=== PATIENT | female | born 1960 | race Caucasian/White ===

== ENCOUNTER 2017-10-03 12:20 | Emergency (ER) | payer BC ==
[2017-10-03] MEDS ORDERED: SODIUM CHLORIDE 0.9% 1,000 ML IV STA (12:42)
--- NOTE | 2017-10-03 12:45 | ED ---
General Adult HPI - General Chief complaint: Extremity Problem,Nontraumatic Stated complaint: right hand/arm numbness Time Seen by Provider: 10/03/17 12:28 Source: patient, RN notes reviewed Mode of arrival: ambulatory Limitations: physical limitation - History of Present Illness Initial comments: Patient 57-year-old female significant past medical history for MS, presenting today with a chief complaint of some numbness to and sensation to the fourth and fifth digits of the right hand. She states that she does feel some numbness and tingling also up into the forearm just on the ulnar side. Patient denies anything that makes it better or worse. States it's been constant for the past 4 days. She states she is unsure if it's related but she was on IV steroids for one week 2 weeks ago and finished with a tapering dose of oral steroids this past week. She states the symptoms started the next day after finishing the steroids. Patient denies any other associated symptoms or complaints. She states she did call the neurologist and was advised come here to the emergency room. Patient denies any recent fever, chills, shortness of breath, chest pain, back pain, abdominal pain, nausea or vomiting, headaches or visual changes, or any other complaints. - Related Data Home Medications Medication Instructions Recorded Confirmed Albuterol Sulfate [Proair Hfa] 2 puff INHALATION RT-Q4H PRN 01/20/14 10/03/17 Lansoprazole [Prevacid] 30 mg PO BID@0600,1800 01/20/14 10/03/17 Spironolactone [Aldactone] 25 mg PO DAILY@59901/20/14 10/03/17 Apixaban [Eliquis] 5 mg PO BID@0600,1800 03/28/16 10/03/17 Atorvastatin [Lipitor] 40 mg PO DAILY@119903/28/16 10/03/17 Calcium Carbonate/Vitamin D3 1 tab PO DAILY@119903/28/16 10/03/17 [Calcium 600-Vit D3 200 Tablet] Ferrous Sulfate [Feosol] 325 mg PO DAILY@59903/28/16 10/03/17 Furosemide [Lasix] 40 mg PO DAILY@119903/28/16 10/03/17 Gabapentin [Gabapentin] 600 mg PO TID@0600,1200,1800 03/28/16 10/03/17 [place]-3 Fatty Acids/Fish Oil [Fish 1 cap PO DAILY@1200 03/28/16 10/03/17 Oil 1,000 mg Softgel] Potassium Chloride ER [K-Dur 20] 20 meq PO DAILY@1200 03/28/16 10/03/17 ALPRAZolam [Xanax] 0.25 mg PO DAILY PRN 10/03/17 10/03/17 Acetaminophen/Diphenhydramine 3 tab PO HS PRN 10/03/17 10/03/17 [Tylenol PM 500-25mg] Albuterol Sulfate [Proair Hfa] 2 puff INHALATION HS 10/03/17 10/03/17 Baclofen [Lioresal] 20 mg PO TID@0600,1200,1800 10/03/17 10/03/17 [place]/D3/Mag11/Zinc/[employer]/Bob/Bor 1 tab PO DAILY@1800 10/03/17 10/03/17 [Caltrate 600+D Plus Tablet] Citracal Plus Magnesium 1 tab PO DAILY@1200 10/03/17 10/03/17 Dofetilide [Tikosyn] 250 mcg PO BID@0600,1800 10/03/17 10/03/17 Ergocalciferol [Vitamin D2] 50,000 unit PO Q30D 10/03/17 10/03/17 Glatiramer Acetate [Copaxone] 40 mg SQ MOWEFR 10/03/17 10/03/17 Levothyroxine Sodium [Synthroid] 100 mcg PO DAILY@0600 10/03/17 10/03/17 Losartan Potassium [Cozaar] 25 mg PO DAILY@1200 10/03/17 10/03/17 Metoprolol Tartrate [Lopressor] 50 mg PO BID@0600,1800 10/03/17 10/03/17 Multivit-Min/FA/Lycopen/Lutein 1 tab PO DAILY@1800 10/03/17 10/03/17 [Centrum Silver Tablet] Pregabalin [Lyrica] 75 mg PO DAILY@0600 10/03/17 10/03/17 Pregabalin [Lyrica] 150 mg PO DAILY@1800 10/03/17 10/03/17 Venlafaxine HCl ER [Effexor Xr] 150 mg PO DAILY@1800 10/03/17 10/03/17 oxyCODONE HCL/ACETAMINOPHEN 1 tab PO TID@0600,1400,1800 10/03/17 10/03/17 [Endocet 7.5-325 mg] Allergies Allergy/AdvReac Type Severity Reaction Status Date / Time No Known Allergies Allergy Verified 10/03/17 12:52 Review of Systems ROS Statement: Those systems with pertinent positive or pertinent negative responses have been documented in the HPI. ROS Other: All systems not noted in ROS Statement are negative. Past Medical History Past Medical History: Chest Pain / Angina, GERD/Reflux, Hyperlipidemia, Hypertension, Myocardial Infarction ([place]), Mitral Valve Prolapse (MVP), Osteoarthritis (OA), Pneumonia Additional Past Medical History / Comment(s): enlarged heart, irrregular heart beat-afib, DDD,HERNIATED DISC, lesions on brain which maybe due to possible MS. Last Myocardial Infarction Date:: several years ago History of Any Multi-Drug Resistant Organisms: None Reported Past Surgical History: Appendectomy, Hysterectomy, Tonsillectomy Additional Past Surgical History / Comment(s): LASER SURG TO BACK Past Anesthesia/Blood Transfusion Reactions: No Reported Reaction Past Psychological History: Depression, PTSD Smoking Status: Former smoker Past Alcohol Use History: None Reported, Rare Past Drug Use History: None Reported - Past Family History Father Family Medical History: Cancer Additional Family Medical History / Comment(s): PROSTATE AND LUNG CANCER Mother Family Medical History: CVA/TIA, Hypertension General Exam - General Exam Comments Initial Comments: General: The patient is awake and alert, in no distress, and does not appear acutely ill. Eye: Pupils are equal, round and reactive to light, extra-ocular movements are intact. No nystagmus. There is normal conjunctiva bilaterally. No signs of icterus. Ears, nose, mouth and throat: There are moist mucous membranes and no oral lesions. Neck: The neck is supple, there is no tenderness or JVD. Cardiovascular: There is a regular rate and rhythm. No murmur, rub or gallop is appreciated. Respiratory: Lungs are clear to auscultation, respirations are non-labored, breath sounds are equal. No wheezes, stridor, rales, or rhonchi. Gastrointestinal: Soft, non-distended, non-tender abdomen without masses or organomegaly noted. There is no rebound or guarding present. No CVA tenderness. Bowel sounds are unremarkable. Musculoskeletal: Normal ROM, no tenderness. Strength 5/5. Sensation intact. Pulses equal bilaterally 2+. Neurological: A&O x 3. CN II-XII intact, There are no obvious motor or sensory deficits. Coordination appears grossly intact. Speech is normal. Sensation is intact to light touch to the fourth and fifth digits and the ulnar aspect of the right hand. Strength 5/5. Skin: Skin is warm and dry and no rashes or lesions are noted. Psychiatric: Cooperative, appropriate mood & affect, normal judgment. Limitations: physical limitation Course Vital Signs 10/03/17 12:25 Temperature 99.0 F Pulse Rate 73 Respiratory 20 Rate Blood Pressure 126/77 O2 Sat by Pulse 98 Oximetry Medical Decision Making - Medical Decision Making Case discussed in detail with attending physician Dr. Zarate. Patient reexamined at this time shows no signs of distress resting comfortably. Discussed with attending physician Dr. Zarate who did discuss case with patient's neurologist recommends the patient may be discharged from follow-up in the office over the next 2 days. Patient has been updated in states understanding. - Lab Data Result diagrams: 10/03/17 12:58 10/03/17 12:58 Lab Results 10/03/17 10/03/17 Range/Units 12:58 12:58 WBC 11.2 H (3.8-10.6) k/uL RBC 4.73 (3.80-5.40) m/uL Hgb 14.5 (11.4-16.0) gm/dL Hct 44.1 (34.0-46.0) % MCV 93.2 (80.0-100.0) fL MCH 30.6 (25.0-35.0) pg MCHC 32.9 (31.0-37.0) g/dL RDW 13.8 (11.5-15.5) % Plt Count 192 (150-450) k/uL Neutrophils % 81 % Lymphocytes % 15 % Monocytes % 4 % Eosinophils % 0 % Basophils % 0 % Neutrophils # 9.0 H (1.3-7.7) k/uL Lymphocytes # 1.6 (1.0-4.8) k/uL Monocytes # 0.4 (0-1.0) k/uL Eosinophils # 0.0 (0-0.7) k/uL Basophils # 0.0 (0-0.2) k/uL Sodium 141 (137-145) mmol/L Potassium 4.1 (3.5-5.1) mmol/L Chloride 105 (98-107) mmol/L Carbon Dioxide 26 (22-30) mmol/L Anion Gap 10 mmol/L BUN 18 H (7-17) mg/dL Creatinine 0.59 (0.52-1.04) mg/dL Est GFR (CKD-EPI)AfAm >90 (>60 ml/min/1.73 sqM) Est GFR (CKD-EPI)NonAf >90 (>60 ml/min/1.73 sqM) Glucose 118 H (74-99) mg/dL Calcium 9.8 (8.4-10.2) mg/dL Total Bilirubin 0.7 (0.2-1.3) mg/dL AST 24 (14-36) U/L ALT 66 H (9-52) U/L Alkaline Phosphatase 104 (38-126) U/L Total Protein 6.6 (6.3-8.2) g/dL Albumin 4.1 (3.5-5.0) g/dL Disposition Clinical Impression: Paresthesia Disposition: HOME SELF-CARE Condition: Good Instructions: Paresthesia (ED) Additional Instructions: Please follow-up with urologist over the next 1-2 days as discussed. Please return to emergency room if the symptoms increase or worsen or for any other concerns. Referrals: Karlo Carrion DO [Primary Care Provider] - 1-2 days Eliseo Oliver MD [STAFF PHYSICIAN] - 1-2 days Time of Disposition: 15:00
[2017-10-03 13:14] LABS: Basophils % (A) 0 %; Eosinophils % (A) 0 %; HCT 44.1 % (34.0-46.0); HGB 14.5 gm/dL (11.4-16.0); Lymphocytes # (A) 1.6 k/uL (1.0-4.8); Lymphocytes % (A) 15 %; MCH 30.6 pg (25.0-35.0); MCHC 32.9 g/dL (31.0-37.0); MCV 93.2 fL (80.0-100.0); Monocytes # (A) 0.4 k/uL (0-1.0); Monocytes % (A) 4 %; Neutrophils % (A) 81 %; Platelet Count 192 k/uL (150-450); RBC 4.73 m/uL (3.80-5.40); RDW 13.8 % (11.5-15.5); WBC 11.2 k/uL (3.8-10.6)
[2017-10-03 13:23] LABS: ALT 66 U/L (9-52); AST 24 U/L (14-36); Albumin 4.1 g/dL (3.5-5.0); Alkaline Phosphatase 104 U/L (38-126); Anion Gap 10 mmol/L; Blood Urea Nitrogen 18 mg/dL (7-17); Calcium 9.8 mg/dL (8.4-10.2); Carbon Dioxide 26 mmol/L (22-30); Chloride 105 mmol/L (98-107); Glucose 118 mg/dL (74-99); Potassium 4.1 mmol/L (3.5-5.1); Sodium 141 mmol/L (137-145); Total Bilirubin 0.7 mg/dL (0.2-1.3); Total Protein 6.6 g/dL (6.3-8.2)
--- NOTE | 2017-10-03 13:28 | XR ---
EXAMINATION TYPE: XR cervical spine limited DATE OF EXAM: 10/03/2017 COMPARISON: NONE HISTORY: Paresthesia TECHNIQUE: 3 views submitted FINDINGS: There is facet arthropathy at all levels. Prevertebral soft tissue structures within normal limits. Odontoid intact. There is degenerative disc disease at all levels with most marked findings at C5-C6. There is biapical pleural thickening and calcification soft tissue the right neck likely related to t he carotid artery. IMPRESSION: 1. Multilevel degenerative disc disease. Consider MRI follow-up.
[2017-10-03 15:08] VITALS: BP 146/83; PULSE 67; RESP 18; TEMP 97.7
== END 2017-10-03 15:08 | disposition home or self-care (01) ==
LOC: EC 12:20
DX: R20.2 Paresthesia of skin (principal); I48.91 Unspecified atrial fibrillation; E78.5 Hyperlipidemia, unspecified; I10 Essential (primary) hypertension; G35 Multiple sclerosis; K21.9 Gastro-esophageal reflux disease without esophagitis; F32.9 Major depressive disorder, single episode, unspecified; I25.2 Old myocardial infarction; Z87.891 Personal history of nicotine dependence; Z79.01 Long term (current) use of anticoagulants; Z79.891 Long term (current) use of opiate analgesic; Z79.899 Other long term (current) drug therapy; Z87.39 Personal history of other diseases of the musculoskeletal system and connective tissue; Z86.79 Personal history of other diseases of the circulatory system
CPT/HCPCS: 36415; 72040; 80053; 85025; 96360; 99284

== ENCOUNTER → 2019-01-21 | Outpatient (CLI) | payer BC ==
--- NOTE | 2019-01-21 13:33 | CT ---
EXAMINATION TYPE: CT abdomen pelvis w con DATE OF EXAM: 01/21/2019 COMPARISON: NONE HISTORY: 58-year-old female LLQ pain for 6+ weeks TECHNIQUE: Contiguous axial scanning of the abdomen and pelvis following administration of 100 ml Iso cleopatra 300 IV contrast. Delayed images through the kidneys and coronal/sagittal reconstructions perform ed. CT DLP: 1892.4 mGycm Automated exposure control for dose reduction was used. FINDINGS: A normal size without pericardial effusion. Strandy atelectasis in the lower lungs. No pleural effusi on. No focal liver lesion or biliary ductal dilatation. Portal venous system is patent. Numerous gallstones measuring up to 1.7 cm. No abnormal gallbladder distention. Adrenal glands, kidneys, spleen, and pancreas appear within normal limits. No dilated small bowel, free fluid, or free air. No mesenteric or retroperitoneal lymphadenopathy. Some surgical material adjacent to the cecum suggest prior appendectomy. Left-sided colonic diverticulosis without pericolonic inflammatory change. Bladder distended. Uterus surgically absent. Neither ovary is visualized. Pelvic phlebolith is noted. No abnormal fluid collection pelvis or pelvic lymphadenopathy. Bones: Degenerative changes at the hips. Advanced degenerative changes mid to lower lumbar spine with one retrolisthesis at L2-L3 and L3-L4 and grade 1 anterolisthesis at L4-L5. There may be a severe sp inal canal stenosis at L4-L5 and variable neuroforaminal stenoses from L2 through S1 levels. IMPRESSION: 1. LEFT-SIDED COLONIC DIVERTICULOSIS. NO FINDINGS OF ACUTE DIVERTICULITIS AT THIS TIME. 2. CHOLELITHIASIS. 3. ADVANCED DEGENERATIVE CHANGES MID TO LOWER LUMBAR SPINE WITH MULTILEVEL GRADE 1 SPONDYLOLISTHESES. THERE MAY BE A SEVERE SPINAL CANAL STENOSIS AT L4-L5 AND VARIABLE NEURAL FORAMINAL STENOSES FROM L2 TO S1 LEVELS.
== END | disposition home or self-care (01) ==
LOC: RADCTMAIN 10:25
PROVIDERS: ATTEND Family Medicine
DX: K57.30 Diverticulosis of large intestine without perforation or abscess without bleeding (principal); K80.20 Calculus of gallbladder without cholecystitis without obstruction; G35 Multiple sclerosis
CPT/HCPCS: 74177; Q9967

== ENCOUNTER 2019-04-25 15:03 | Observation (INO) | payer BC ==
[2019-04-25] MEDS ORDERED: IPRATROPIUM-ALBUTEROL 3 ML NEB INHALATION STA (15:22)
--- NOTE | 2019-04-25 15:25 | ED ---
SOB HPI - General Chief Complaint: Shortness of Breath Stated Complaint: SOB Time Seen by Provider: 04/25/19 15:11 Source: patient, RN notes reviewed Mode of arrival: ambulatory Limitations: no limitations - History of Present Illness Initial Comments: This is a 4-year-old female history of atrial fibrillation PAT MS TIAs and oblation who states she had the onset today while trying to get ready go to her doctor's appointment and shortness of breath dizziness some lightheadedness. She was found at triage to have a 79 systolic blood pressure. He states he has been eating and drinking normally. She has a fevers chills nausea vomiting sweats no other symptoms such as chest pain she denied any palpitations. No recent illnesses. She does have anxiety disorder she states. She is a former smoker who quit several years ago she does have early stage emphysema she states MD Complaint: shortness of breath - Related Data Home Medications Medication Instructions Recorded Confirmed Lansoprazole [Prevacid] 30 mg PO BID@0600,1800 01/20/14 04/25/19 Spironolactone [Aldactone] 25 mg PO DAILY@0600 01/20/14 04/25/19 Apixaban [Eliquis] 5 mg PO BID@0600,1800 03/28/16 04/25/19 Atorvastatin [Lipitor] 40 mg PO DAILY@1200 03/28/16 04/25/19 Calcium Carbonate/Vitamin D3 1 tab PO DAILY@1200 03/28/16 04/25/19 [Calcium 600-Vit D3 200 Tablet] Ferrous Sulfate [Feosol] 325 mg PO DAILY@0600 03/28/16 04/25/19 Furosemide [Lasix] 40 mg PO DAILY@1200 03/28/16 04/25/19 Gabapentin 600 mg PO QID 03/28/16 04/25/19 [place]-3 Fatty Acids/Fish Oil [Fish 1 cap PO DAILY@1200 03/28/16 04/25/19 Oil 1,000 mg Softgel] Potassium Chloride ER [K-Dur 20] 20 meq PO DAILY@1200 03/28/16 04/25/19 ALPRAZolam [Xanax] 0.25 mg PO DAILY PRN 10/03/17 04/25/19 Baclofen [Lioresal] 20 mg PO TID@0600,1200,1800 10/03/17 04/25/19 Citracal Plus Magnesium 1 tab PO DAILY@1200 10/03/17 04/25/19 Dofetilide [Tikosyn] 250 mcg PO BID@0600,1800 10/03/17 04/25/19 Losartan Potassium [Cozaar] 25 mg PO DAILY@1200 10/03/17 04/25/19 Multivit-Min/FA/Lycopen/Lutein 1 tab PO DAILY@1800 10/03/17 04/25/19 [Centrum Silver Tablet] Venlafaxine HCl ER [Effexor Xr] 150 mg PO DAILY@1800 10/03/17 04/25/19 oxyCODONE HCL/ACETAMINOPHEN 1 tab PO TID@0600,1400,1800 10/03/17 04/25/19 [Endocet 7.5-325 mg] Ascorbic Acid [Vitamin C] 500 mg PO BID 04/25/19 04/25/19 Calcium/Magnesium/Zinc 1 tab PO DAILY 04/25/19 04/25/19 [Ojayrxu-Hmvmeajpp-Sadq Tablet] Cholecalciferol [Vitamin D3 (25 1,000 unit PO DAILY 04/25/19 04/25/19 Mcg = 1000 Iu)] Cyanocobalamin [Vitamin B-12] 500 mcg PO HS 04/25/19 04/25/19 Ipratropium/Albuterol Sulfate 1 puff INHALATION RT-TID PRN 04/25/19 04/25/19 [Combivent Respimat Inhaler] Levothyroxine Sodium [Synthroid] 150 mcg PO DAILY 04/25/19 04/25/19 Magnesium Oxide [Grady] 500 mg PO TID 04/25/19 04/25/19 Metoprolol Tartrate [Lopressor] 25 mg PO BID 04/25/19 04/25/19 Modafinil [Provigil] 100 mg PO BID 04/25/19 04/25/19 Allergies Allergy/AdvReac Type Severity Reaction Status Date / Time No Known Allergies Allergy Verified 04/25/19 15:49 Review of Systems ROS Statement: Those systems with pertinent positive or pertinent negative responses have been documented in the HPI. ROS Other: All systems not noted in ROS Statement are negative. Past Medical History Past Medical History: Chest Pain / Angina, GERD/Reflux, Hyperlipidemia, Hypertension, Myocardial Infarction ([place]), Mitral Valve Prolapse (MVP), Osteoarthritis (OA), Pneumonia Additional Past Medical History / Comment(s): enlarged heart, irrregular heart beat-afib, DDD,HERNIATED DISC, lesions on brain which maybe due to possible MS. Last Myocardial Infarction Date:: several years ago History of Any Multi-Drug Resistant Organisms: None Reported Past Surgical History: Appendectomy, Hysterectomy, Tonsillectomy Additional Past Surgical History / Comment(s): LASER SURG TO BACK Past Anesthesia/Blood Transfusion Reactions: No Reported Reaction Past Psychological History: Depression, PTSD Smoking Status: Former smoker Past Alcohol Use History: None Reported Past Drug Use History: None Reported - Past Family History Father Family Medical History: Cancer Additional Family Medical History / Comment(s): PROSTATE AND LUNG CANCER Mother Family Medical History: CVA/TIA, Hypertension General Exam - General Exam Comments Initial Comments: This is a well-developed well-nourished awake alert oriented 3 female Limitations: no limitations General appearance: alert, anxious Head exam: Present: atraumatic, normocephalic, normal inspection Eye exam: Present: normal appearance, PERRL, EOMI. Absent: scleral icterus, conjunctival injection, periorbital swelling ENT exam: Present: normal exam, mucous membranes moist Neck exam: Present: normal inspection. Absent: tenderness, meningismus, lymphadenopathy Respiratory exam: Present: decreased breath sounds. Absent: respiratory distress, wheezes, rales, rhonchi, stridor Cardiovascular Exam: Present: tachycardia, irregular rhythm, normal heart sounds. Absent: systolic murmur, diastolic murmur, rubs, gallop, clicks GI/Abdominal exam: Present: soft, normal bowel sounds. Absent: distended, tenderness, guarding, rebound, rigid Extremities exam: Present: normal inspection, full ROM, normal capillary refill. Absent: tenderness, pedal edema, joint swelling, calf tenderness Back exam: Present: normal inspection Neurological exam: Present: alert, oriented X3, CN II-XII intact Psychiatric exam: Present: normal affect, normal mood Skin exam: Present: warm, dry, intact, normal color. Absent: rash Course Vital Signs 04/25/19 04/25/19 04/25/19 15:07 15:29 15:38 Temperature 98.0 F Pulse Rate 57 L 120 H 118 H Respiratory 22 Rate Blood Pressure 79/58 O2 Sat by Pulse 97 Oximetry - Reevaluation(s) Reevaluation #1: 09/26/19 15:26 Timothy monitor: Noncardiac monitoring the patient's heart rate was noted to go between 110 bpm up to 139 bpm. It does appear to be atrial fibrillation. 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 Medical Decision Making - Medical Decision Making I did reevaluate patient on several occasions she has no further symptoms. Her A. fib has improved I did discuss the case with Dr. Levy . Patient will be discharged she is increase her metoprolol to 3 times a day dosing otherwise the presentation is consistent with bronchospasm. Patient will follow back up with Dr. Vargas - Lab Data Result diagrams: 04/25/19 14:35 04/25/19 14:35 Lab Results 04/25/19 04/25/19 04/25/19 Range/Units 14:35 14:35 14:35 WBC 7.2 (3.8-10.6) k/uL RBC 4.69 (3.80-5.40) m/uL Hgb 14.7 (11.4-16.0) gm/dL Hct 42.8 (34.0-46.0) % MCV 91.2 (80.0-100.0) fL MCH 31.4 (25.0-35.0) pg MCHC 34.5 (31.0-37.0) g/dL RDW 13.4 (11.5-15.5) % Plt Count 267 (150-450) k/uL Neutrophils % 52 % Lymphocytes % 38 % Monocytes % 5 % Eosinophils % 2 % Basophils % 1 % Neutrophils # 3.7 (1.3-7.7) k/uL Lymphocytes # 2.7 (1.0-4.8) k/uL Monocytes # 0.4 (0-1.0) k/uL Eosinophils # 0.1 (0-0.7) k/uL Basophils # 0.1 (0-0.2) k/uL PT 10.4 (9.0-12.0) sec INR 1.0 (<1.2) APTT 26.8 (22.0-30.0) sec D-Dimer 0.50 (<0.60) mg/L FEU Sodium 142 (137-145) mmol/L Potassium 3.9 (3.5-5.1) mmol/L Chloride 106 (98-107) mmol/L Carbon Dioxide 24 (22-30) mmol/L Anion Gap 12 mmol/L BUN 11 (7-17) mg/dL Creatinine 0.81 (0.52-1.04) mg/dL Est GFR (CKD-EPI)AfAm >90 (>60 ml/min/1.73 sqM) Est GFR (CKD-EPI)NonAf 80 (>60 ml/min/1.73 sqM) Glucose 124 H (74-99) mg/dL Calcium 9.7 (8.4-10.2) mg/dL Magnesium 1.9 (1.6-2.3) mg/dL Total Bilirubin 0.6 (0.2-1.3) mg/dL AST 32 (14-36) U/L ALT 48 (9-52) U/L Alkaline Phosphatase 128 H (38-126) U/L Troponin I (0.000-0.034) ng/mL NT-Pro-B Natriuret Pep pg/mL Total Protein 6.7 (6.3-8.2) g/dL Albumin 4.2 (3.5-5.0) g/dL 04/25/19 04/25/19 Range/Units 14:35 14:35 WBC (3.8-10.6) k/uL RBC (3.80-5.40) m/uL Hgb (11.4-16.0) gm/dL Hct (34.0-46.0) % MCV (80.0-100.0) fL MCH (25.0-35.0) pg MCHC (31.0-37.0) g/dL RDW (11.5-15.5) % Plt Count (150-450) k/uL Neutrophils % % Lymphocytes % % Monocytes % % Eosinophils % % Basophils % % Neutrophils # (1.3-7.7) k/uL Lymphocytes # (1.0-4.8) k/uL Monocytes # (0-1.0) k/uL Eosinophils # (0-0.7) k/uL Basophils # (0-0.2) k/uL PT (9.0-12.0) sec INR (<1.2) APTT (22.0-30.0) sec D-Dimer (<0.60) mg/L FEU Sodium (137-145) mmol/L Potassium (3.5-5.1) mmol/L Chloride (98-107) mmol/L Carbon Dioxide (22-30) mmol/L Anion Gap mmol/L BUN (7-17) mg/dL Creatinine (0.52-1.04) mg/dL Est GFR (CKD-EPI)AfAm (>60 ml/min/1.73 sqM) Est GFR (CKD-EPI)NonAf (>60 ml/min/1.73 sqM) Glucose (74-99) mg/dL Calcium (8.4-10.2) mg/dL Magnesium (1.6-2.3) mg/dL Total Bilirubin (0.2-1.3) mg/dL AST (14-36) U/L ALT (9-52) U/L Alkaline Phosphatase (38-126) U/L Troponin I <0.012 (0.000-0.034) ng/mL NT-Pro-B Natriuret Pep 668 pg/mL Total Protein (6.3-8.2) g/dL Albumin (3.5-5.0) g/dL - EKG Data -: EKG Interpreted by Me (Neutrophils ablation with a response rate of 113 QRS 108 QT since QTC 372/5) EKG Comments: EKG interpretation 113 QRS 108 QT since QTC 372/510 that anterior fascicular bl ock evidence of unifocal PVCs Disposition Clinical Impression: Acute bronchospasm, Atrial fibrillation Disposition: HOME SELF-CARE Condition: Good Instructions (If sedation given, give patient instructions): Bronchospasm (ED), A-fib (Atrial Fibrillation) (ED) Additional Instructions: Increase your metoprolol dosing from twice a day to 3 times a day. Follow-up with Dr. Vargas. Return if any problems Is patient prescribed a controlled substance at d/c from ED?: No Referrals: Karlo Carrion DO [Primary Care Provider] - 1-2 days
[2019-04-25 15:52] LABS: Basophils # (A) 0.1 k/uL (0-0.2); Basophils % (A) 1 %; Eosinophils # (A) 0.1 k/uL (0-0.7); Eosinophils % (A) 2 %; HCT 42.8 % (34.0-46.0); HGB 14.7 gm/dL (11.4-16.0); Lymphocytes # (A) 2.7 k/uL (1.0-4.8); Lymphocytes % (A) 38 %; MCH 31.4 pg (25.0-35.0); MCHC 34.5 g/dL (31.0-37.0); MCV 91.2 fL (80.0-100.0); Mean Platelet Volume 8.4; Monocytes # (A) 0.4 k/uL (0-1.0); Monocytes % (A) 5 %; Neutrophils # (A) 3.7 k/uL (1.3-7.7); Neutrophils % (A) 52 %; Platelet Count 267 k/uL (150-450); RBC 4.69 m/uL (3.80-5.40); RDW 13.4 % (11.5-15.5); WBC 7.2 k/uL (3.8-10.6)
[2019-04-25 16:01] LABS: ALT 48 U/L (9-52); AST 32 U/L (14-36); African American GFR (CKD) >90 (>60 ml/min/1.73 sqM); Albumin 4.2 g/dL (3.5-5.0); Alkaline Phosphatase 128 U/L (38-126); Anion Gap 12 mmol/L; Blood Urea Nitrogen 11 mg/dL (7-17); Calcium 9.7 mg/dL (8.4-10.2); Carbon Dioxide 24 mmol/L (22-30); Chloride 106 mmol/L (98-107); Glucose 124 mg/dL (74-99); Magnesium 1.9 mg/dL (1.6-2.3); Potassium 3.9 mmol/L (3.5-5.1); Sodium 142 mmol/L (137-145); Total Bilirubin 0.6 mg/dL (0.2-1.3); Total Protein 6.7 g/dL (6.3-8.2)
[2019-04-25 16:04] LABS: D-Dimer 0.5 mg/L FEU (<0.60); Partial Thromboplastin Time 26.8 sec (22.0-30.0); Prothrombin Time 10.4 sec (9.0-12.0)
--- NOTE | 2019-04-25 16:18 | XR ---
EXAMINATION TYPE: XR chest 2V DATE OF EXAM: 04/25/2019 COMPARISON: Prior chest x-ray 01/14/2012 and 09/12/2018 HISTORY: Difficulty breathing, shortness of breath TECHNIQUE: Frontal and lateral views of the chest are obtained. FINDINGS: There is no focal air space opacity, pleural effusion, or pneumothorax seen. The cardiac silhouette size is within normal limits. The osseous structures are intact. There are overlying car diac leads. IMPRESSION: No acute cardiopulmonary process.
[2019-04-25] MEDS ORDERED: NITROGLYCERIN SL TABS 0.4 MG TAB SUBLINGUAL PRN (17:42)
[2019-04-25] MEDS ORDERED: ASPIRIN 81 MG PO STA (17:42)
--- NOTE | 2019-04-25 17:45 | ED ---
Medical Decision Making - Medical Decision Making 58 female the ER for evaluation. Patient does say for evaluation shortness of breath. Upon discharge patient does not feel comfortable with discharge. She had shortness of breath or heart. The 120s to 130s. We'll admit for rate control and observation regarding cardiopulmonary status - Lab Data Result diagrams: 04/25/19 14:35 04/25/19 14:35 Lab Results 04/25/19 04/25/19 04/25/19 Range/Units 14:35 14:35 14:35 WBC 7.2 (3.8-10.6) k/uL RBC 4.69 (3.80-5.40) m/uL Hgb 14.7 (11.4-16.0) gm/dL Hct 42.8 (34.0-46.0) % MCV 91.2 (80.0-100.0) fL MCH 31.4 (25.0-35.0) pg MCHC 34.5 (31.0-37.0) g/dL RDW 13.4 (11.5-15.5) % Plt Count 267 (150-450) k/uL Neutrophils % 52 % Lymphocytes % 38 % Monocytes % 5 % Eosinophils % 2 % Basophils % 1 % Neutrophils # 3.7 (1.3-7.7) k/uL Lymphocytes # 2.7 (1.0-4.8) k/uL Monocytes # 0.4 (0-1.0) k/uL Eosinophils # 0.1 (0-0.7) k/uL Basophils # 0.1 (0-0.2) k/uL PT 10.4 (9.0-12.0) sec INR 1.0 (<1.2) APTT 26.8 (22.0-30.0) sec D-Dimer 0.50 (<0.60) mg/L FEU Sodium 142 (137-145) mmol/L Potassium 3.9 (3.5-5.1) mmol/L Chloride 106 (98-107) mmol/L Carbon Dioxide 24 (22-30) mmol/L Anion Gap 12 mmol/L BUN 11 (7-17) mg/dL Creatinine 0.81 (0.52-1.04) mg/dL Est GFR (CKD-EPI)AfAm >90 (>60 ml/min/1.73 sqM) Est GFR (CKD-EPI)NonAf 80 (>60 ml/min/1.73 sqM) Glucose 124 H (74-99) mg/dL Calcium 9.7 (8.4-10.2) mg/dL Magnesium 1.9 (1.6-2.3) mg/dL Total Bilirubin 0.6 (0.2-1.3) mg/dL AST 32 (14-36) U/L ALT 48 (9-52) U/L Alkaline Phosphatase 128 H (38-126) U/L Troponin I (0.000-0.034) ng/mL NT-Pro-B Natriuret Pep pg/mL Total Protein 6.7 (6.3-8.2) g/dL Albumin 4.2 (3.5-5.0) g/dL 04/25/19 04/25/19 Range/Units 14:35 14:35 WBC (3.8-10.6) k/uL RBC (3.80-5.40) m/uL Hgb (11.4-16.0) gm/dL Hct (34.0-46.0) % MCV (80.0-100.0) fL MCH (25.0-35.0) pg MCHC (31.0-37.0) g/dL RDW (11.5-15.5) % Plt Count (150-450) k/uL Neutrophils % % Lymphocytes % % Monocytes % % Eosinophils % % Basophils % % Neutrophils # (1.3-7.7) k/uL Lymphocytes # (1.0-4.8) k/uL Monocytes # (0-1.0) k/uL Eosinophils # (0-0.7) k/uL Basophils # (0-0.2) k/uL PT (9.0-12.0) sec INR (<1.2) APTT (22.0-30.0) sec D-Dimer (<0.60) mg/L FEU Sodium (137-145) mmol/L Potassium (3.5-5.1) mmol/L Chloride (98-107) mmol/L Carbon Dioxide (22-30) mmol/L Anion Gap mmol/L BUN (7-17) mg/dL Creatinine (0.52-1.04) mg/dL Est GFR (CKD-EPI)AfAm (>60 ml/min/1.73 sqM) Est GFR (CKD-EPI)NonAf (>60 ml/min/1.73 sqM) Glucose (74-99) mg/dL Calcium (8.4-10.2) mg/dL Magnesium (1.6-2.3) mg/dL Total Bilirubin (0.2-1.3) mg/dL AST (14-36) U/L ALT (9-52) U/L Alkaline Phosphatase (38-126) U/L Troponin I <0.012 (0.000-0.034) ng/mL NT-Pro-B Natriuret Pep 668 pg/mL Total Protein (6.3-8.2) g/dL Albumin (3.5-5.0) g/dL Disposition Clinical Impression: Acute bronchospasm, Atrial fibrillation, Chronic a-fib Disposition: ADMITTED IP TO THIS HOSP Condition: Good Instructions (If sedation given, give patient instructions): A-fib (Atrial Fibrillation) (ED), Bronchospasm (ED) Additional Instructions: Increase your metoprolol dosing from twice a day to 3 times a day. Follow-up with Dr. Vargas. Return if any problems Is patient prescribed a controlled substance at d/c from ED?: No Referrals: Karlo Carrion DO [Primary Care Provider] - 1-2 days
--- NOTE | 2019-04-25 18:04 | P.PN ---
Progress Note - Text Called by emergency room physician regarding this patient at 5pm Patient Is on Dofetilide 250 g Twice Daily Avoid QT Prolonging Drugs. I Discussed This with the Nurse As Well As Called Inpatient Pharmacy Aspirin to Be Discontinued Continue ELIQUIS 5 Mg Twice Daily Increase Metoprolol to 25 Mg 3 Times A Day Continue All Other Medications Continue Spironolactone Avoid IV Cardizem Drip Avoid Verapamil Avoid Hydrochlorothiazide Avoid Amiodarone Drip or Oral Amiodarone Avoid QT prolonging drugs
[2019-04-25] MEDS: METOPROLOL TARTRATE 25 MG TAB PO SCH ×2 (19:01→20:56)
[2019-04-25] MEDS ORDERED: IPRATROPIUM-ALBUTEROL 3 ML NEB INHALATION PRN (19:48)
[2019-04-25] MEDS ORDERED: ALPRAZolam 0.25 MG TAB PO PRN (19:48)
[2019-04-25] MEDS: BACLOFEN 10 MG TAB PO SCH (20:55)
[2019-04-25] MEDS: MAGNESIUM OXIDE 400 MG TAB PO SCH (20:55)
[2019-04-25] MEDS: ASCORBIC ACID 500 MG TAB PO SCH (20:55)
[2019-04-25] MEDS: oxyCODONE-APAP 7.5-325MG 1 EACH TAB PO SCH (20:55)
[2019-04-25] MEDS: GABAPENTIN 300 MG CAP PO SCH (20:55)
[2019-04-25] MEDS: APIXABAN 5 MG TAB PO SCH (20:56)
[2019-04-25] MEDS ORDERED: CYANOCOBALAMIN 500 MCG TAB PO SCH (21:00)
[2019-04-25] MEDS: DOFETILIDE 250 MCG CAP PO SCH (21:03)
[2019-04-25] MEDS: SODIUM CHLORIDE 0.9% 1,000 ML IV SCH (22:41)
[2019-04-26] MEDS: GABAPENTIN 300 MG CAP PO SCH ×2 (01:18→06:24)
[2019-04-26 03:08] LABS: Cholesterol 126 mg/dL (<200); HDL Cholesterol 28 mg/dL (40-60); LDL Cholesterol,Calculated 63 mg/dL (0-99); Triglycerides 177 mg/dL (<150)
[2019-04-26 03:49] VITALS: PULSE 64
[2019-04-26] MEDS ORDERED: MODAFINIL 100 MG TAB PO SCH (06:00)
[2019-04-26] MEDS ORDERED: LEVOTHYROXINE 75 MCG TAB PO SCH (06:00)
[2019-04-26] MEDS ORDERED: FERROUS SULFATE 325 MG TAB PO SCH (06:00)
[2019-04-26] MEDS ORDERED: SPIRONOLACTONE 25 MG TAB PO SCH (06:00)
[2019-04-26] MEDS: BACLOFEN 10 MG TAB PO SCH (06:24)
[2019-04-26] MEDS: oxyCODONE-APAP 7.5-325MG 1 EACH TAB PO SCH (06:24)
[2019-04-26] MEDS: SODIUM CHLORIDE 0.9% 1,000 ML IV SCH (06:25)
[2019-04-26 07:38] VITALS: BP 112/66; RESP 14; TEMP 97.8
[2019-04-26] MEDS ORDERED: ACETAMINOPHEN TAB 500 MG TAB PO PRN ×2 (08:34→08:46)
[2019-04-26] MEDS ORDERED: CHOLECALCIFEROL 1,000 UNIT TAB PO SCH (09:00)
[2019-04-26] MEDS ORDERED: NON FORMULARY DRUG (Calcium/Magnesium/Zinc [Calcium-Magnesium-Zinc Tablet] 1 TAB) PO SCH (09:00)
[2019-04-26] MEDS ORDERED: ASPIRIN 325 MG TAB PO SCH (09:00)
[2019-04-26] MEDS: APIXABAN 5 MG TAB PO SCH (09:11)
[2019-04-26] MEDS: MAGNESIUM OXIDE 400 MG TAB PO SCH (09:12)
[2019-04-26] MEDS: METOPROLOL TARTRATE 25 MG TAB PO SCH (09:12)
[2019-04-26] MEDS: DOFETILIDE 250 MCG CAP PO SCH (09:12)
[2019-04-26] MEDS: ASCORBIC ACID 500 MG TAB PO SCH (09:12)
--- NOTE | 2019-04-26 11:10 | P.HPIM ---
History of Present Illness 58-year-old pleasant female with known history of atrial fibrillation, multiple sclerosis history came in after she was sent in from cardiology clinic for A. fib with rapid ventricular rate presently rate controlled patient was started on dofetilide. Patient is still in A. fib but rate controlled at this time. Patient at that time when she was in A. fib was having chest pressure-like sensation secondary to tachycardia denied any significant lightheadedness. Patient's blood pressure is low normal. Patient does have a cardiomyopathy secondary to tachycardia although uses unknown patient is not in CHF exacerbation at this time. Her QTC is prolonged and cardiac is recommending to avoid QT prolonging medications. I'll leave the addition of discontinuation of the Effexor to cardiology. 3 discontinue Effexor patient will benefit from outpatient follow-up with psychiatry. Patient was complaining of shortness of breath as well. All of her symptoms presently resolved Review of Systems REVIEW OF SYSTEMS: CONSTITUTIONAL: No fever, no malaise, no fatigue. HEENT: No recent visual problems or hearing problems. Denied any sore throat. CARDIOVASCULAR: No orthopnea, PND, no palpitations, no syncope. PULMONARY: no cough, no hemoptysis. GASTROINTESTINAL: No diarrhea, no nausea, no vomiting, no abdominal pain. NEUROLOGICAL: No headaches, no weakness, no numbness. HEMATOLOGICAL: Denies any bleeding or petechiae. GENITOURINARY: Denies any burning micturition, frequency, or urgency. MUSCULOSKELETAL/RHEUMATOLOGICAL: Denies any joint pain, swelling, or any muscle pain. ENDOCRINE: Denies any polyuria or polydipsia. The rest of the 14-point review of systems is negative. Past Medical History Past Medical History: Chest Pain / Angina, GERD/Reflux, Hyperlipidemia, Hypertension, Myocardial Infarction ([place]), Mitral Valve Prolapse (MVP), Neur ologic Disorder, Osteoarthritis (OA), Pneumonia Additional Past Medical History / Comment(s): enlarged heart, irrregular heart beat-afib, DDD,HERNIATED DISC, lesions on brain which maybe due to possible MS. Last Myocardial Infarction Date:: several years ago History of Any Multi-Drug Resistant Organisms: None Reported Past Surgical History: Appendectomy, Hysterectomy, Tonsillectomy Additional Past Surgical History / Comment(s): LASER SURG TO BACK Past Anesthesia/Blood Transfusion Reactions: No Reported Reaction Past Psychological History: Depression, PTSD Smoking Status: Former smoker Past Alcohol Use History: None Reported Additional Past Alcohol Use History / Comment(s): quit smoking october 2015 Past Drug Use History: None Reported - Past Family History Father Family Medical History: Cancer Additional Family Medical History / Comment(s): PROSTATE AND LUNG CANCER Mother Family Medical History: CVA/TIA, Hypertension Medications and Allergies Home Medications Medication Instructions Recorded Confirmed Type Lansoprazole [Prevacid] 30 mg PO BID@0600,1800 01/20/14 04/25/19 History Spironolactone [Aldactone] 25 mg PO DAILY@0600 01/20/14 04/25/19 History Apixaban [Eliquis] 5 mg PO BID@0600,1800 03/28/16 04/25/19 History Atorvastatin [Lipitor] 40 mg PO DAILY@119903/28/16 04/25/19 History Calcium Carbonate/Vitamin D3 1 tab PO DAILY@1200 03/28/16 04/25/19 History [Calcium 600-Vit D3 200 Tablet] Ferrous Sulfate [Feosol] 325 mg PO DAILY@00 03/28/16 04/25/19 History Furosemide [Lasix] 40 mg PO DAILY@1200 03/28/16 04/25/19 History Gabapentin 600 mg PO QID 03/28/16 04/25/19 History [place]-3 Fatty Acids/Fish Oil [Fish 1 cap PO DAILY@119903/28/16 04/25/19 History Oil 1,000 mg Softgel] Potassium Chloride ER [K-Dur 20] 20 meq PO DAILY@1200 03/28/16 04/25/19 History ALPRAZolam [Xanax] 0.25 mg PO DAILY PRN 10/03/17 04/25/19 History Baclofen [Lioresal] 20 mg PO TID@0600,1200,1800 10/03/17 04/25/19 History Citracal Plus Magnesium 1 tab PO DAILY@1200 10/03/17 04/25/19 History Dofetilide [Tikosyn] 250 mcg PO BID@0600,1800 10/03/17 04/25/19 History Losartan Potassium [Cozaar] 25 mg PO DAILY@1200 10/03/17 04/25/19 History Multivit-Min/FA/Lycopen/Lutein 1 tab PO DAILY@1800 10/03/17 04/25/19 History [Centrum Silver Tablet] Venlafaxine HCl ER [Effexor XR] 150 mg PO DAILY@1800 10/03/17 04/25/19 History oxyCODONE HCL/ACETAMINOPHEN 1 tab PO TID@0600,1400,1800 10/03/17 04/25/19 History [Endocet 7.5-325 mg] Ascorbic Acid [Vitamin C] 500 mg PO BID 04/25/19 04/25/19 History Calcium/Magnesium/Zinc 1 tab PO DAILY 04/25/19 04/25/19 History [Bcdpkwx-Inyjjjcqk-Utsd Tablet] Cholecalciferol [Vitamin D3 (25 1,000 unit PO DAILY 04/25/19 04/25/19 History Mcg = 1000 Iu)] Cyanocobalamin [Vitamin B-12] 500 mcg PO HS 04/25/19 04/25/19 History Ipratropium/Albuterol Sulfate 1 puff INHALATION RT-TID PRN 04/25/19 04/25/19 History [Combivent Respimat Inhaler] Levothyroxine Sodium [Synthroid] 150 mcg PO DAILY 04/25/19 04/25/19 History Magnesium Oxide [Grady] 500 mg PO TID 04/25/19 04/25/19 History Modafinil [Provigil] 100 mg PO BID 04/25/19 04/25/19 History Dofetilide [Tikosyn] 250 mcg PO BID #60 cap 04/26/19 Rx Metoprolol Tartrate [Lopressor] 25 mg PO TID tab 04/26/19 Rx Allergies Allergy/AdvReac Type Severity Reaction Status Date / Time No Known Allergies Allergy Verified 04/25/19 15:49 Physical Exam Vitals: Vital Signs Temp Pulse Pulse Resp BP BP Pulse Ox 04/26/19 07:38 14 04/26/19 07:36 97.8 F 64 14 112/66 96 04/26/19 03:25 98.1 F 64 16 92/54 97 04/25/19 23:15 98.2 F 69 16 110/68 97 04/25/19 19:20 98 F 61 18 100/66 95 04/25/19 18:00 112 H 18 99/70 04/25/19 17:30 141 H 10 L 109/70 95 04/25/19 17:00 107 H 7 L 101/60 95 04/25/19 16:30 103 H 11 L 95 04/25/19 16:01 85/61 04/25/19 15:38 118 H 04/25/19 15:30 113 H 12 94/78 97 04/25/19 15:29 120 H 04/25/19 15:18 93 L 04/25/19 15:07 98.0 F 57 L 22 79/58 97 Intake and Output 04/25/19 04/26/19 04/26/19 22:59 06:59 14:59 Intake Total 360 Balance 360 Intake: Oral 360 Other: Voiding Method Toilet Weight 121.109 kg PHYSICAL EXAMINATION: GENERAL: The patient is alert and oriented x3, not in any acute distress. Well developed, well nourished. HEENT: Pupils are round and equally reacting to light. EOMI. No scleral icterus. No conjunctival pallor. Normocephalic, atraumatic. No pharyngeal erythema. No thyromegaly. CARDIOVASCULAR: S1 and S2 present. No murmurs, rubs, or gallops. Irregular rh ythm PULMONARY: Chest is clear to auscultation, no wheezing or crackles. ABDOMEN: Soft, nontender, nondistended, normoactive bowel sounds. No palpable organomegaly. MUSCULOSKELETAL: No joint swelling or deformity. EXTREMITIES: No cyanosis, clubbing, or pedal edema. NEUROLOGICAL: Gross neurological examination did not reveal any focal deficits. SKIN: No rashes. Results CBC & Chem 7: 04/25/19 14:35 04/25/19 14:35 Labs: Abnormal Lab Results - Last 24 Hours (Table) 04/25/19 04/26/19 Range/Units 14:35 02:36 Glucose 124 H (74-99) mg/dL Alkaline Phosphatase 128 H (38-126) U/L Triglycerides 177 H (<150) mg/dL HDL Cholesterol 28 L (40-60) mg/dL Thrombosis Risk Factor Assmnt - Choose All That Apply Any of the Below Risk Factors Present?: Yes Each Factor Represents 1 point: Age 41-60 years, Obesity (BMI >25), Swollen legs (current) Other Risk Factors: No Other congenital or acquired thrombophilia - If yes, enter type in comment: No Thrombosis Risk Factor Assessment Total Risk Factor Score: 3 Thrombosis Risk Factor Assessment Level: Moderate Risk Assessment and Plan Plan: Atrial fibrillation with rapid ventricular rate: Patient is presently rate controlled cleared by cardiology to discharge patient will be discharged today. Continue with anti-coagulation. -Prolonged QT QTc of around 500, we'll check with the cardiology and if they recommended to discontinue AcipHex or patient will be this medication will be discontinued although patient is expected to have rebound depression patient was recently started on modafinil, which probably will help her with her depression. Patient will benefit from follow-up with the psychiatric. -Congestive heart failure chronic systolic dysfunction nonischemic cardiomyopathy ejection fraction is unknown patient is euvolemic at this time -Multiple sclerosis will not in acute exacerbation -Peripheral neuropathy -Gastroesophageal reflux disease next and heparin hyperlipidemia -Coronary artery disease -Hiatal hypertension -Mitral valve prolapse not in heart failure exacerbation -Osteoarthritis. -Depression. With the above-mentioned plan patient will be discharged today metoprolol dose was increased by cardiology.
--- NOTE | 2019-04-26 11:11 | P.DS ---
Providers Date of admission: 04/25/19 17:42 Attending physician: Felipa Nina Consults: 04/25/19 17:58 Consult Physician Routine Consulting Provider: Dayna Smith Consult Reason/Comments: afib Do you want consulting provider notified?: Yes Primary care physician: Karlo Carrion [facility] Course: Please refer to my HPI Patient Condition at Discharge: Good Plan - Discharge Summary Discharge Rx Participant: Yes New Discharge Prescriptions: New Metoprolol Tartrate [Lopressor] 25 mg PO TID tab Dofetilide [Tikosyn] 250 mcg PO BID #60 cap Continue Spironolactone [Aldactone] 25 mg PO DAILY@0600 Lansoprazole [Prevacid] 30 mg PO BID@0600,1800 Calcium Carbonate/Vitamin D3 [Calcium 600-Vit D3 200 Tablet] 1 tab PO DAILY@1200 Potassium Chloride ER [K-Dur 20] 20 meq PO DAILY@1200 [place]-3 Fatty Acids/Fish Oil [Fish Oil 1,000 mg Softgel] 1 cap PO DAILY@1200 Furosemide [Lasix] 40 mg PO DAILY@1200 Ferrous Sulfate [Feosol] 325 mg PO DAILY@0600 Apixaban [Eliquis] 5 mg PO BID@0600,1800 Gabapentin 600 mg PO QID Atorvastatin [Lipitor] 40 mg PO DAILY@1200 ALPRAZolam [Xanax] 0.25 mg PO DAILY PRN PRN Reason: ANXIETY/PTSD Venlafaxine HCl ER [Effexor XR] 150 mg PO DAILY@1800 Losartan Potassium [Cozaar] 25 mg PO DAILY@1200 oxyCODONE HCL/ACETAMINOPHEN [Endocet 7.5-325 mg] 1 tab PO TID@0600,1400,1800 Citracal Plus Magnesium 1 tab PO DAILY@1200 Multivit-Min/FA/Lycopen/Lutein [Centrum Silver Tablet] 1 tab PO DAILY@1800 Baclofen [Lioresal] 20 mg PO TID@0600,1200,1800 Ipratropium/Albuterol Sulfate [Combivent Respimat Inhaler] 1 puff INHALATION RT-TID PRN PRN Reason: Shortness Of Breath Modafinil [Provigil] 100 mg PO BID Calcium/Magnesium/Zinc [Aemtegi-Dojmdnspc-Bmws Tablet] 1 tab PO DAILY Ascorbic Acid [Vitamin C] 500 mg PO BID Magnesium Oxide [Grady] 500 mg PO TID Cyanocobalamin [Vitamin B-12] 500 mcg PO HS Cholecalciferol [Vitamin D3 (25 Mcg = 1000 Iu)] 1,000 unit PO DAILY Levothyroxine Sodium [Synthroid] 150 mcg PO DAILY Discontinued Dofetilide [Tikosyn] 250 mcg PO BID@0600,1800 Metoprolol Tartrate [Lopressor] 25 mg PO BID Discharge Medication List Lansoprazole [Prevacid] 30 mg PO BID@0600,1800 01/20/14 [History] Spironolactone [Aldactone] 25 mg PO DAILY@59901/20/14 [History] Apixaban [Eliquis] 5 mg PO BID@0600,1800 03/28/16 [History] Atorvastatin [Lipitor] 40 mg PO DAILY@119903/28/16 [History] Calcium Carbonate/Vitamin D3 [Calcium 600-Vit D3 200 Tablet] 1 tab PO DAILY@119903/28/16 [History] Ferrous Sulfate [Feosol] 325 mg PO DAILY@59903/28/16 [History] Furosemide [Lasix] 40 mg PO DAILY@119903/28/16 [History] Gabapentin 600 mg PO QID 03/28/16 [History] [place]-3 Fatty Acids/Fish Oil [Fish Oil 1,000 mg Softgel] 1 cap PO DAILY@119903/28/16 [History] Potassium Chloride ER [K-Dur 20] 20 meq PO DAILY@119903/28/16 [History] ALPRAZolam [Xanax] 0.25 mg PO DAILY PRN 10/03/17 [History] Baclofen [Lioresal] 20 mg PO TID@0600,1200,179910/03/17 [History] Citracal Plus Magnesium 1 tab PO DAILY@119910/03/17 [History] Losartan Potassium [Cozaar] 25 mg PO DAILY@119910/03/17 [History] Multivit-Min/FA/Lycopen/Lutein [Centrum Silver Tablet] 1 tab PO DAILY@179910/03/17 [History] Venlafaxine HCl ER [Effexor XR] 150 mg PO DAILY@179910/03/17 [History] oxyCODONE HCL/ACETAMINOPHEN [Endocet 7.5-325 mg] 1 tab PO TID@0600,1400,1800 10/03/17 [History] Ascorbic Acid [Vitamin C] 500 mg PO BID 04/25/19 [History] Calcium/Magnesium/Zinc [Bggvziz-Vmxnauugc-Hlci Tablet] 1 tab PO DAILY 04/25/19 [History] Cholecalciferol [Vitamin D3 (25 Mcg = 1000 Iu)] 1,000 unit PO DAILY 04/25/19 [History] Cyanocobalamin [Vitamin B-12] 500 mcg PO HS 04/25/19 [History] Ipratropium/Albuterol Sulfate [Combivent Respimat Inhaler] 1 puff INHALATION RT- TID PRN 04/25/19 [History] Levothyroxine Sodium [Synthroid] 150 mcg PO DAILY 04/25/19 [History] Magnesium Oxide [Grady] 500 mg PO TID 04/25/19 [History] Modafinil [Provigil] 100 mg PO BID 04/25/19 [History] Dofetilide [Tikosyn] 250 mcg PO BID #60 cap 04/26/19 [Rx] Metoprolol Tartrate [Lopressor] 25 mg PO TID tab 04/26/19 [Rx] Follow up Appointment(s)/Referral(s): Hilario Vargas MD [Family Provider] - 05/03/19 2:15 pm (Monday with Annabel [facility]) Karlo Carrion DO [Primary Care Provider] - 05/01/19 10:20 am (Monday with Eugenie) Patient Instructions/Handouts: A-fib (Atrial Fibrillation) (ED), Bronchospasm (ED) Activity/Diet/Wound Care/Special Instructions: Increase your metoprolol dosing from twice a day to 3 times a day. Follow-up with Dr. Vargas. Return if any problems Discharge Disposition: HOME SELF-CARE
[2019-04-26] MEDS ORDERED: FUROSEMIDE 40 MG TAB PO SCH (12:00)
[2019-04-26] MEDS ORDERED: ATORVASTATIN 40 MG TAB PO SCH (12:00)
[2019-04-26] MEDS ORDERED: POTASSIUM CHLORIDE ER 20 MEQ TAB.ER PO SCH (12:00)
[2019-04-26] MEDS ORDERED: [UNRECOGNIZED DRUG - OTHER] PO SCH (12:00)
[2019-04-26] MEDS ORDERED: NON FORMULARY DRUG (Omega-3 Fatty Acids/Fish Oil [Fish Oil 1,000 Mg Softgel] 1 CAP) PO SCH (12:00)
[2019-04-26] MEDS ORDERED: CALCIUM CARB-VIT D 500MG-200UN 1 EACH TAB PO SCH (12:00)
[2019-04-26] MEDS ORDERED: VENLAFAXINE HCL ER 150 MG CAP PO SCH ×2 (18:00→19:52)
[2019-04-26] MEDS ORDERED: MULTIVITAMINS, THERA 1 EACH TAB PO SCH (18:00)
[2019-04-26] MEDS ORDERED: oxyCODONE-APAP 7.5-325MG 1 EACH TAB PO SCH (20:15)
[2019-04-26] MEDS ORDERED: BACLOFEN 10 MG TAB PO SCH (20:15)
== END 2019-04-26 11:40 | disposition home or self-care (01) ==
LOC: EC 15:03 → 3SCARD 17:42
PROVIDERS: ADMIT Hospitalist; ATTEND Hospitalist
DX: I48.2 Chronic atrial fibrillation (principal); J98.01 Acute bronchospasm; I11.0 Hypertensive heart disease with heart failure; I50.22 Chronic systolic (congestive) heart failure; I47.1 Supraventricular tachycardia; J43.9 Emphysema, unspecified; I43 Cardiomyopathy in diseases classified elsewhere; M19.90 Unspecified osteoarthritis, unspecified site; K21.9 Gastro-esophageal reflux disease without esophagitis; I34.1 Nonrheumatic mitral (valve) prolapse; I10 Essential (primary) hypertension; E78.5 Hyperlipidemia, unspecified; G93.9 Disorder of brain, unspecified; G35 Multiple sclerosis; F43.10 Post-traumatic stress disorder, unspecified; F32.9 Major depressive disorder, single episode, unspecified; R22.43 Localized swelling, mass and lump, lower limb, bilateral; I45.81 Long QT syndrome; G62.9 Polyneuropathy, unspecified; F41.9 Anxiety disorder, unspecified; E66.9 Obesity, unspecified; Z68.38 Body mass index [BMI] 38.0-38.9, adult; Z79.01 Long term (current) use of anticoagulants; Z79.891 Long term (current) use of opiate analgesic; Z79.890 Hormone replacement therapy; Z79.899 Other long term (current) drug therapy; Z87.01 Personal history of pneumonia (recurrent); Z90.710 Acquired absence of both cervix and uterus; I25.2 Old myocardial infarction; Z90.49 Acquired absence of other specified parts of digestive tract; Z87.891 Personal history of nicotine dependence; Z80.1 Family history of malignant neoplasm of trachea, bronchus and lung; Z80.42 Family history of malignant neoplasm of prostate; Z82.3 Family history of stroke; Z82.49 Family history of ischemic heart disease and other diseases of the circulatory system
CPT/HCPCS: 99285; 36415; 94640; 93005; 85379; 83880; 80061; 80053; 84443; 83735; 84484 ×2; 85025; 85610; 85730; 71046; G0378 ×2

== ENCOUNTER 2019-05-22 11:19 | Emergency (ER) | payer BC ==
[2019-05-22 11:57] VITALS: BP 123/73; PULSE 70; RESP 18; TEMP 97.9
[2019-05-22] MEDS ORDERED: KETOROLAC 30 MG/ML 1 ML VIAL IM STA (12:32)
[2019-05-22] MEDS ORDERED: ORPHENADRINE 30 MG/ML 2 ML VIAL IM STA (12:33)
--- NOTE | 2019-05-22 12:36 | ED ---
General Adult HPI - General Chief complaint: Back Pain/Injury Stated complaint: Back pain Time Seen by Provider: 05/22/19 12:12 Source: patient, RN notes reviewed Mode of arrival: wheelchair Limitations: no limitations - History of Present Illness Initial comments: 58-year-old female with a complicated past medical history including degenerative disc disease, herniated disks presents to the emergency department for back pain. Patient states she has had chronic back pain for years that has recently worsened in the past 6 days. States she has some radiating pain down her right leg. Patient states she is ambulatory denies weakness in the legs. She denies any changes of urination or bowel movements. Denies any fevers or chills. Denies any history of IV drug abuse. Denies any saddle anesthesia. Denies any numbness or tingling in the lower extremities. Denies any history of back surgery. Denies epidural injections. Patient states she usually takes Percocet for her pain but this does not usually help with her back pain.Patient has no other complaints at this time including shortness of breath, chest pain, abdominal pain, nausea or vomiting, headache, or visual changes. - Related Data Home Medications Medication Instructions Recorded Confirmed Lansoprazole [Prevacid] 30 mg PO BID@0400,1600 01/20/14 05/22/19 Spironolactone [Aldactone] 25 mg PO DAILY@04001/20/14 05/22/19 Apixaban [Eliquis] 5 mg PO BID@0400,1600 03/28/16 05/22/19 Atorvastatin [Lipitor] 40 mg PO DAILY@1000 03/28/16 05/22/19 Calcium Carbonate/Vitamin D3 1 tab PO DAILY@04003/28/16 05/22/19 [Calcium 600-Vit D3 200 Tablet] Ferrous Sulfate [Feosol] 325 mg PO DAILY@0400 03/28/16 05/22/19 Furosemide [Lasix] 40 mg PO DAILY@119903/28/16 05/22/19 Gabapentin 600 mg PO QID 03/28/16 05/22/19 [place]-3 Fatty Acids/Fish Oil [Fish 1 cap PO DAILY@1200 03/28/16 05/22/19 Oil 1,000 mg Softgel] Potassium Chloride ER [K-Dur 20] 20 meq PO DAILY@1000 03/28/16 05/22/19 Baclofen [Lioresal] 20 mg PO TID@0400,1000,1600 PRN 10/03/17 05/22/19 Losartan Potassium [Cozaar] 25 mg PO DAILY@1000 10/03/17 05/22/19 Venlafaxine HCl ER [Effexor XR] 150 mg PO DAILY@1600 10/03/17 05/22/19 oxyCODONE HCL/ACETAMINOPHEN 1 tab PO TID@0400,1000,1600 PRN 10/03/17 05/22/19 [Endocet 7.5-325 mg] Ascorbic Acid [Vitamin C] 500 mg PO BID@0400,1600 04/25/19 05/22/19 Calcium/Magnesium/Zinc 1 tab PO DAILY@1600 04/25/19 05/22/19 [Nwkpaba-Avacxbvqq-Jkig Tablet] Cyanocobalamin [Vitamin B-12] 500 mcg PO DAILY@1600 04/25/19 05/22/19 Levothyroxine Sodium [Synthroid] 150 mcg PO DAILY@0400 04/25/19 05/22/19 Magnesium Oxide [Grady] 500 mg PO DAILY@1000 04/25/19 05/22/19 Cholecalciferol (Vitamin D3) 2,000 unit PO DAILY@1200 05/22/19 05/22/19 [Vitamin D3] Dofetilide [Tikosyn] 125 mcg PO BID@0400,1600 05/22/19 05/22/19 Hyoscyamine Sulfate [Levsin] 0.25 mg PO Q6H PRN 05/22/19 05/22/19 Ipratropium/Albuterol Sulfate 1 puff INHALATION QID PRN 05/22/19 05/22/19 [Combivent Respimat Inhaler] Lidocaine 5% Patch [Lidoderm 5% 1 patch TOPICAL DAILY PRN 05/22/19 05/22/19 Patch] Multivit-Min/Iron/Folic/Lutein 1 tab PO DAILY@1600 05/22/19 05/22/19 [Centrum Silver Women Tablet] Previous Rx's Medication Instructions Recorded Metoprolol Tartrate [Lopressor] 25 mg PO TID tab 04/26/19 Allergies Allergy/AdvReac Type Severity Reaction Status Date / Time No Known Allergies Allergy Verified 05/22/19 12:17 Review of Systems ROS Statement: Those systems with pertinent positive or pertinent negative responses have been documented in the HPI. ROS Other: All systems not noted in ROS Statement are negative. Past Medical History Past Medical History: Chest Pain / Angina, GERD/Reflux, Hyperlipidemia, Hypertension, Myocardial Infarction (CT), Mitral Valve Prolapse (MVP), Neurologic Disorder, Osteoarthritis (OA), Pneumonia Additional Past Medical History / Comment(s): enlarged heart, irrregular heart beat-afib, DDD,HERNIATED DISC, lesions on brain which maybe due to possible MS. Last Myocardial Infarction Date:: several years ago History of Any Multi-Drug Resistant Organisms: None Reported Past Surgical History: Appendectomy, Hysterectomy, Tonsillectomy Additional Past Surgical History / Comment(s): LASER SURG TO BACK Past Anesthesia/Blood Transfusion Reactions: No Reported Reaction Past Psychological History: Depression, PTSD Smoking Status: Former smoker Past Alcohol Use History: None Reported Past Drug Use History: None Reported - Past Family History Father Family Medical History: Cancer Additional Family Medical History / Comment(s): PROSTATE AND LUNG CANCER Mother Family Medical History: CVA/TIA, Hypertension General Exam Limitations: no limitations General appearance: alert, in no apparent distress Head exam: Present: atraumatic, normocephalic, normal inspection Eye exam: Present: normal appearance, PERRL, EOMI. Absent: scleral icterus, conjunctival injection, periorbital swelling ENT exam: Present: normal exam, mucous membranes moist Neck exam: Present: normal inspection, full ROM. Absent: tenderness, meningismus, lymphadenopathy Respiratory exam: Present: normal lung sounds bilaterally. Absent: respiratory distress, wheezes, rales, rhonchi, stridor Cardiovascular Exam: Present: regular rate, normal rhythm, normal heart sounds. Absent: systolic murmur, diastolic murmur, rubs, gallop, clicks Extremities exam: Present: normal inspection, full ROM (Full range motion of lower extremities.), normal capillary refill (Capillary refill less than 2 seconds, DP pulses 2+ in lower extremities bilaterally.), other (Sensation intact in lower extremities bilaterally.). Absent: tenderness, pedal edema, joint swelling, calf tenderness Neurological exam: Present: normal gait (Patient is ambulatory without difficulty.) Course Vital Signs 05/22/19 11:55 Temperature 97.9 F Pulse Rate 70 Respiratory 18 Rate Blood Pressure 123/73 O2 Sat by Pulse 96 Oximetry Medical Decision Making - Medical Decision Making Patient presents for chronic back pain. Vitals are stable. Neurovascular status is intact in both lower extremities. Patient usually takes Percocet for pain but states this never helps her back pain. Patient is ambulatory without assistance. No red flag symptoms. No fevers. No history of back surgeries. Patient is likely chronic in nature. She was given Toradol and Norflex and recommended she follow up with her pain management provider Dr. Oliver. States she did try to call today but they were unable to return her call. Had a lengthy discussion about symptoms requiring her to return to the emergency department including saddle anesthesia, bladder or bowel changes, numbness or tingling in the lower extremities, or inability to ambulate and she is aware of this and agrees. Disposition Clinical Impression: Acute exacerbation of chronic low back pain Disposition: HOME SELF-CARE Condition: Good Instructions (If sedation given, give patient instructions): Acute Low Back Pain (ED) Additional Instructions: Please follow up with pain management in one to 2 days. Return to the emergency department if you have any worsening symptoms such as saddle anesthesia, bladder or bowel changes, numbness or tingling in the lower extremities, or inability to ambulate. Is patient prescribed a controlled substance at d/c from ED?: No Referrals: Karlo Carrion DO [Primary Care Provider] - 1-2 days Eliseo Oliver MD [Medical Doctor] - 1-2 days Time of Disposition: 13:18
== END 2019-05-22 13:33 | disposition home or self-care (01) ==
LOC: EC 11:19
DX: M54.5 Low back pain (principal); G89.29 Other chronic pain; K21.9 Gastro-esophageal reflux disease without esophagitis; I10 Essential (primary) hypertension; E78.5 Hyperlipidemia, unspecified; I25.2 Old myocardial infarction; F32.9 Major depressive disorder, single episode, unspecified; F43.10 Post-traumatic stress disorder, unspecified; Z79.01 Long term (current) use of anticoagulants; Z79.899 Other long term (current) drug therapy; Z79.890 Hormone replacement therapy; Z87.891 Personal history of nicotine dependence
CPT/HCPCS: 99283; 96372 ×2; J2360; J1885

== ENCOUNTER 2019-07-04 09:07 | Emergency (ER) | payer BC ==
--- NOTE | 2019-07-04 09:50 | ED ---
Arrhythmia/Palpitations HPI - General Chief Complaint: Arrhythmia/Palpitations Stated Complaint: Palpitations, High BP Time Seen by Provider: 07/04/19 09:15 Source: patient Mode of arrival: wheelchair Limitations: no limitations - History of Present Illness Initial Comments: The patient is a 58-year-old female past history of A. fib who presents to the emergency room with reported chest palpitations. She states that she had an ablation in 2016 for A. fib. This was performed by Dr. Flores. States that she hasn't had any episodes of A. fib up until a couple weeks ago. States that she felt palpitations at that time however it only lasted approximately 5 minutes and spontaneously resolved area and states that this morning around 8 AM she had sudden onset of chest palpitations and shortness of breath. She brought results into the emergency department by the time she got here she was asymptomatic. She denies any current chest pain or chest palpitations. No shortness of breath. No recent illnesses. Denies any cough or hemoptysis. No fevers or chills. Denies any abdominal pain. No ripping or tearing sensation to her back. Denies any numbness or tingling in her upper extremity. She is on Elquis and has been taking it as directed. No history of DVT or PE. No lower extremity edema. No calf pain or swelling. Denies prolonged immobility recent travel. No other medication changes. Denies stimulant intake. She was advised by Dr. Flores that at some point she may require a second ablation. There are no other alleviating, precipitating or modifying factors - Related Data Home Medications Medication Instructions Recorded Confirmed Lansoprazole [Prevacid] 30 mg PO BID@0400,159901/20/14 07/04/19 Spironolactone [Aldactone] 25 mg PO DAILY@0 01/20/14 07/04/19 Apixaban [Eliquis] 5 mg PO BID@0400,1600 03/28/16 07/04/19 Atorvastatin [Lipitor] 40 mg PO DAILY@1000 03/28/16 07/04/19 Calcium Carbonate/Vitamin D3 1 tab PO DAILY@04003/28/16 07/04/19 [Calcium 600-Vit D3 200 Tablet] Ferrous Sulfate [Feosol] 325 mg PO DAILY@0400 03/28/16 07/04/19 Furosemide [Lasix] 40 mg PO DAILY@1000 03/28/16 07/04/19 Gabapentin 600 mg PO QID@04,10,16,22 03/28/16 07/04/19 [place]-3 Fatty Acids/Fish Oil [Fish 1 cap PO DAILY@1200 03/28/16 07/04/19 Oil 1,000 mg Softgel] Potassium Chloride ER [K-Dur 20] 20 meq PO DAILY@1000 03/28/16 07/04/19 Baclofen [Lioresal] 20 mg PO TID@0400,1000,1600 PRN 10/03/17 07/04/19 Losartan Potassium [Cozaar] 25 mg PO DAILY@1000 10/03/17 07/04/19 Venlafaxine HCl ER [Effexor XR] 150 mg PO DAILY@1600 10/03/17 07/04/19 Ascorbic Acid [Vitamin C] 500 mg PO BID@0400,1600 04/25/19 07/04/19 Calcium/Magnesium/Zinc 1 tab PO DAILY@1600 04/25/19 07/04/19 [Odkwxme-Qydbghnxb-Vjyo Tablet] Cyanocobalamin [Vitamin B-12] 500 mcg PO DAILY@1600 04/25/19 07/04/19 Levothyroxine Sodium [Synthroid] 150 mcg PO DAILY@0400 04/25/19 07/04/19 Magnesium Oxide [Grady] 500 mg PO DAILY@1000 04/25/19 07/04/19 Cholecalciferol (Vitamin D3) 2,000 unit PO DAILY@1200 05/22/19 07/04/19 [Vitamin D3] Dofetilide [Tikosyn] 125 mcg PO BID@0400,1600 05/22/19 07/04/19 Hyoscyamine Sulfate [Levsin] 0.25 mg PO TID@0400,1000,1600 05/22/19 07/04/19 Ipratropium/Albuterol Sulfate 1 puff INHALATION QID PRN 05/22/19 07/04/19 [Combivent Respimat Inhaler] Lidocaine 5% Patch [Lidoderm 5% 1 patch TOPICAL DAILY PRN 05/22/19 07/04/19 Patch] Multivit-Min/Iron/Folic/Lutein 1 tab PO DAILY@1600 05/22/19 07/04/19 [Centrum Silver Women Tablet] Besifloxacin HCl [Besivance] 1 drop RIGHT EYE TID@0400,1000,1600 07/04/19 07/04/19 Difluprednate [Durezol] 1 drop RIGHT EYE BID@1000,1600 07/04/19 07/04/19 Metoprolol Tartrate [Lopressor] 25 mg PO TID@0400,1200,2000 07/04/19 07/04/19 Nepafenac [Ilevro] 1 drop RIGHT EYE DAILY@1200 07/04/19 07/04/19 oxyCODONE-APAP 7.5-325MG [Percocet 1 tab PO TID@0400,1000,1600 07/04/19 07/04/19 7.5-325 mg] Allergies Allergy/AdvReac Type Severity Reaction Status Date / Time No Known Allergies Allergy Verified 07/04/19 10:01 Review of Systems ROS Statement: Those systems with pertinent positive or pertinent negative responses have been documented in the HPI. ROS Other: All systems not noted in ROS Statement are negative. Past Medical History Past Medical History: Chest Pain / Angina, GERD/Reflux, Hyperlipidemia, Hypertension, Myocardial Infarction ([place]), Mitral Valve Prolapse (MVP), Neurologic Disorder, Osteoarthritis (OA), Pneumonia Additional Past Medical History / Comment(s): enlarged heart, irrregular heart beat-afib, DDD,HERNIATED DISC, lesions on brain which maybe due to possible MS. Last Myocardial Infarction Date:: several years ago History of Any Multi-Drug Resistant Organisms: None Reported Past Surgical History: Appendectomy, Hysterectomy, Tonsillectomy Additional Past Surgical History / Comment(s): LASER SURG TO BACK Past Anesthesia/Blood Transfusion Reactions: No Reported Reaction Past Psychological History: Depression, PTSD Smoking Status: Former smoker Past Alcohol Use History: None Reported Past Drug Use History: None Reported - Past Family History Father Family Medical History: Cancer Additional Family Medical History / Comment(s): PROSTATE AND LUNG CANCER Mother Family Medical History: CVA/TIA, Hypertension General Exam Limitations: no limitations General appearance: alert, in no apparent distress Head exam: Present: atraumatic, normocephalic, normal inspection Eye exam: Present: normal appearance, PERRL, EOMI. Absent: scleral icterus, conjunctival injection, periorbital swelling ENT exam: Present: normal exam, mucous membranes moist Neck exam: Present: normal inspection. Absent: tenderness, meningismus, lymphadenopathy Respiratory exam: Present: normal lung sounds bilaterally. Absent: respiratory distress, wheezes, rales, rhonchi, stridor Cardiovascular Exam: Present: regular rate, normal rhythm, normal heart sounds. Absent: systolic murmur, diastolic murmur, rubs, gallop, clicks GI/Abdominal exam: Present: soft, normal bowel sounds. Absent: distended, tenderness, guarding, rebound, rigid Extremities exam: Present: normal inspection, full ROM, normal capillary refill. Absent: tenderness, pedal edema, joint swelling, calf tenderness Back exam: Present: normal inspection Neurological exam: Present: alert, oriented X3, CN II-XII intact Psychiatric exam: Present: normal affect, normal mood Skin exam: Present: warm, dry, intact, normal color. Absent: rash Course Vital Signs 07/04/19 07/04/19 09:15 11:54 Temperature 97.9 F 98.1 F Pulse Rate 59 L 94 Respiratory 16 18 Rate Blood Pressure 126/83 149/99 O2 Sat by Pulse 96 99 Oximetry EKG Findings - EKG Comments: EKG Findings:: EKG demonstrates sinus bradycardia with a ventricular rate of 51. [place] interval 166. QRS 106. QTC of 422. There are no acute ST segment elevations or depressions concerning for ischemic changes. Medical Decision Making - Medical Decision Making Upon arrival the patient was placed into room 2. A thorough history and physical exam was performed. The patient is up to continuous pulse ox and cardiac monitoring. 12-lead EKG is performed which demonstrates normal sinus rhythm. I did recommend laboratory studies and a chest x-ray. Laboratory studies are essentially unremarkable. CBC, CMP and coags are normal. Troponin is negative. TSH is 1.3. Chest x-ray demonstrates no acute cardiopulmonary process. I reevaluated the patient she continues to remain asymptomatic. She has not demonstrated any signs of A. fib on the monitor. I discussed diagnosis, differential and treatment options. The patient is requesting go home at this time. Inform her that she needs to follow up Dr. Blancas in office for reevaluation. Continue to take her medications as directed. If she has any new or worsening symptoms she should return to the emergency room. Patient understood and was discharged home in stable condition - Lab Data Result diagrams: 07/04/19 09:40 07/04/19 09:40 Lab Results 07/04/19 07/04/19 07/04/19 Range/Units 09:40 09:40 09:40 WBC 7.7 (3.8-10.6) k/uL RBC 4.26 (3.80-5.40) m/uL Hgb 13.6 (11.4-16.0) gm/dL Hct 40.0 (34.0-46.0) % MCV 93.8 (80.0-100.0) fL MCH 31.8 (25.0-35.0) pg MCHC 33.9 (31.0-37.0) g/dL RDW 12.9 (11.5-15.5) % Plt Count 239 (150-450) k/uL Neutrophils % 56 % Lymphocytes % 33 % Monocytes % 6 % Eosinophils % 3 % Basophils % 0 % Neutrophils # 4.3 (1.3-7.7) k/uL Lymphocytes # 2.6 (1.0-4.8) k/uL Monocytes # 0.4 (0-1.0) k/uL Eosinophils # 0.2 (0-0.7) k/uL Basophils # 0.0 (0-0.2) k/uL PT 10.2 (9.0-12.0) sec INR 0.9 (<1.2) APTT 25.8 (22.0-30.0) sec Sodium 140 (137-145) mmol/L Potassium 4.4 (3.5-5.1) mmol/L Chloride 105 (98-107) mmol/L Carbon Dioxide 29 (22-30) mmol/L Anion Gap 6 mmol/L BUN 17 (7-17) mg/dL Creatinine 0.66 (0.52-1.04) mg/dL Est GFR (CKD-EPI)AfAm >90 (>60 ml/min/1.73 sqM) Est GFR (CKD-EPI)NonAf >90 (>60 ml/min/1.73 sqM) Glucose 101 H (74-99) mg/dL Calcium 10.1 (8.4-10.2) mg/dL Magnesium 2.1 (1.6-2.3) mg/dL Total Bilirubin 0.5 (0.2-1.3) mg/dL AST 30 (14-36) U/L ALT 45 (9-52) U/L Alkaline Phosphatase 105 (38-126) U/L Troponin I (0.000-0.034) ng/mL Total Protein 6.6 (6.3-8.2) g/dL Albumin 4.2 (3.5-5.0) g/dL TSH 1.360 (0.465-4.680) mIU/L 07/04/19 Range/Units 09:40 WBC (3.8-10.6) k/uL RBC (3.80-5.40) m/uL Hgb (11.4-16.0) gm/dL Hct (34.0-46.0) % MCV (80.0-100.0) fL MCH (25.0-35.0) pg MCHC (31.0-37.0) g/dL RDW (11.5-15.5) % Plt Count (150-450) k/uL Neutrophils % % Lymphocytes % % Monocytes % % Eosinophils % % Basophils % % Neutrophils # (1.3-7.7) k/uL Lymphocytes # (1.0-4.8) k/uL Monocytes # (0-1.0) k/uL Eosinophils # (0-0.7) k/uL Basophils # (0-0.2) k/uL PT (9.0-12.0) sec INR (<1.2) APTT (22.0-30.0) sec Sodium (137-145) mmol/L Potassium (3.5-5.1) mmol/L Chloride (98-107) mmol/L Carbon Dioxide (22-30) mmol/L Anion Gap mmol/L BUN (7-17) mg/dL Creatinine (0.52-1.04) mg/dL Est GFR (CKD-EPI)AfAm (>60 ml/min/1.73 sqM) Est GFR (CKD-EPI)NonAf (>60 ml/min/1.73 sqM) Glucose (74-99) mg/dL Calcium (8.4-10.2) mg/dL Magnesium (1.6-2.3) mg/dL Total Bilirubin (0.2-1.3) mg/dL AST (14-36) U/L ALT (9-52) U/L Alkaline Phosphatase (38-126) U/L Troponin I <0.012 (0.000-0.034) ng/mL Total Protein (6.3-8.2) g/dL Albumin (3.5-5.0) g/dL TSH (0.465-4.680) mIU/L Disposition Clinical Impression: Palpitations, History of atrial fibrillation Disposition: HOME SELF-CARE Condition: Stable Instructions (If sedation given, give patient instructions): Heart Palpitations (ED) Additional Instructions: Please follow-up with Dr. Flores in office as soon as possible. Return to the emergency room for any new or worsening symptoms Is patient prescribed a controlled substance at d/c from ED?: No Referrals: Karlo Carrion DO [Primary Care Provider] - 1-2 days Time of Disposition: 11:09
[2019-07-04 10:11] LABS: Basophils % (A) 0 %; Eosinophils # (A) 0.2 k/uL (0-0.7); Eosinophils % (A) 3 %; HGB 13.6 gm/dL (11.4-16.0); Lymphocytes # (A) 2.6 k/uL (1.0-4.8); Lymphocytes % (A) 33 %; MCH 31.8 pg (25.0-35.0); MCHC 33.9 g/dL (31.0-37.0); MCV 93.8 fL (80.0-100.0); Mean Platelet Volume 7.4; Monocytes # (A) 0.4 k/uL (0-1.0); Monocytes % (A) 6 %; Neutrophils # (A) 4.3 k/uL (1.3-7.7); Neutrophils % (A) 56 %; Platelet Count 239 k/uL (150-450); RBC 4.26 m/uL (3.80-5.40); RDW 12.9 % (11.5-15.5); WBC 7.7 k/uL (3.8-10.6)
[2019-07-04 10:16] LABS: INR 0.9 (<1.2); Partial Thromboplastin Time 25.8 sec (22.0-30.0); Prothrombin Time 10.2 sec (9.0-12.0)
[2019-07-04 10:18] LABS: ALT 45 U/L (9-52); AST 30 U/L (14-36); African American GFR (CKD) >90 (>60 ml/min/1.73 sqM); Albumin 4.2 g/dL (3.5-5.0); Alkaline Phosphatase 105 U/L (38-126); Anion Gap 6 mmol/L; Blood Urea Nitrogen 17 mg/dL (7-17); Calcium 10.1 mg/dL (8.4-10.2); Carbon Dioxide 29 mmol/L (22-30); Chloride 105 mmol/L (98-107); Glucose 101 mg/dL (74-99); Magnesium 2.1 mg/dL (1.6-2.3); Non-African American GFR(CKD) >90 (>60 ml/min/1.73 sqM); Potassium 4.4 mmol/L (3.5-5.1); Sodium 140 mmol/L (137-145); Total Bilirubin 0.5 mg/dL (0.2-1.3); Total Protein 6.6 g/dL (6.3-8.2)
--- NOTE | 2019-07-04 10:53 | XR ---
EXAMINATION TYPE: XR chest 2V DATE OF EXAM: 07/04/2019 COMPARISON: 04/25/2019 HISTORY: Dysrhythmia and chest pain TECHNIQUE: Frontal and lateral views of the chest are obtained. FINDINGS: There is no focal air space opacity, pleural effusion, or pneumothorax seen. The cardiac silhouette size is within normal limits. The osseous structures are intact. Prominence of the main pulmonary arteries. Moderate degenerative change of the thoracic spine. IMPRESSION: No acute cardiopulmonary process. Correlate for underlying pulmonary arterial hypertensi on.
[2019-07-04 11:55] VITALS: BP 149/99; PULSE 94; RESP 18; TEMP 98.1
== END 2019-07-04 11:54 | disposition home or self-care (01) ==
LOC: EC 09:07
DX: R00.2 Palpitations (principal); I48.91 Unspecified atrial fibrillation; K21.9 Gastro-esophageal reflux disease without esophagitis; E78.5 Hyperlipidemia, unspecified; I11.9 Hypertensive heart disease without heart failure; I25.2 Old myocardial infarction; I34.1 Nonrheumatic mitral (valve) prolapse; M19.90 Unspecified osteoarthritis, unspecified site; F32.9 Major depressive disorder, single episode, unspecified; F43.10 Post-traumatic stress disorder, unspecified; Z87.891 Personal history of nicotine dependence; Z79.01 Long term (current) use of anticoagulants; Z79.890 Hormone replacement therapy; Z79.891 Long term (current) use of opiate analgesic; Z79.899 Other long term (current) drug therapy
CPT/HCPCS: 36415; 71046; 80053; 83735; 84443; 84484; 85025; 85610; 85730; 99285

== ENCOUNTER 2019-12-20 16:56 | Emergency (ER) | payer BC ==
--- NOTE | 2019-12-20 17:20 | ED ---
General Adult HPI - General Chief complaint: Shortness of Breath Stated complaint: Leg swelling Time Seen by Provider: 12/20/19 17:02 Source: patient Mode of arrival: ambulatory Limitations: no limitations - History of Present Illness Initial comments: Dictation was produced using [employer] dictation software. please excuse any grammatical, word or spelling errors. This patient was cared for during a federal and state declared state of emergency secondary to Covid 19 Chief Complaint: 59 y old female past mental history of heart failure presents with lower extremity edema. History of Present Illness: 59-year-old female she has past medical history of heart failure. Patient states that she feels swollen in her lower legs. Dong navas struggles with this per usual. She does have also a history of atrial fibrillation. She takes apixaban. Patient is on Lasix. She takes 40 mg daily. Patient reports that she noticed the swelling in her legs especially today. Yesterday she had 2 cans of cream of mushroom soup. She usually is on a low- sodium diet. Patient states she has some mild dyspnea today as well. Denies any cough. No fever, chills or night sweats. The ROS documented in this emergency department record has been reviewed and confirmed by me. Those systems with pertinent positive or negative responses have been documented in the HPI. All other systems are other negative and/or noncontributory. PHYSICAL EXAM: General Impression: Alert and oriented x3, not in acute distress HEENT: Normocephalic atraumatic, extra-ocular movements intact, pupils equal and reactive to light bilaterally, mucous membranes moist. Cardiovascular: Heart regular rate and rhythm Chest: Able to complete full sentences, no retractions, no tachypnea Abdomen: abdomen soft, non-tender, non-distended, no organomegaly Musculoskeletal: Pulses present and equal in all extremities, 1+ pitting edema bilaterally Motor: no focal deficits noted Neurological: CN II-XII grossly intact, no focal motor or sensory deficits noted Skin: Intact with no visualized rashes Psych: Normal affect and mood ED course: 59-year-old female presents with clinical presentation concerning for mild heart failure exacerbation. Vital signs on arrival are within acceptable limits. EKG interpretation: Ventricular rate 67, normal sinus rhythm, UT interval 152, QRS 18, QTc 469. No UT prolongation, no QTC prolongation, no ST or T-wave changes noted. No old EKG for comparison. Overall, this EKG is unremarkable - Related Data Home Medications Medication Instructions Recorded Confirmed Lansoprazole [Prevacid] 30 mg PO BID@0400,159901/20/14 07/04/19 Spironolactone [Aldactone] 25 mg PO DAILY@39901/20/14 07/04/19 Apixaban [Eliquis] 5 mg PO BID@0400,159903/28/16 07/04/19 Atorvastatin [Lipitor] 40 mg PO DAILY@99903/28/16 07/04/19 Calcium Carbonate/Vitamin D3 1 tab PO DAILY@39903/28/16 07/04/19 [Calcium 600-Vit D3 200 Tablet] Ferrous Sulfate [Feosol] 325 mg PO DAILY@39903/28/16 07/04/19 Furosemide [Lasix] 40 mg PO DAILY@99903/28/16 07/04/19 Gabapentin 600 mg PO QID@04,10,16,22 03/28/16 07/04/19 Nahma-3 Fatty Acids/Fish Oil [Fish 1 cap PO DAILY@119903/28/16 07/04/19 Oil 1,000 mg Softgel] Potassium Chloride ER [K-Dur 20] 20 meq PO DAILY@99903/28/16 07/04/19 Baclofen [Lioresal] 20 mg PO TID@0400,999,1599 PRN 10/03/17 07/04/19 Losartan Potassium [Cozaar] 25 mg PO DAILY@99910/03/17 07/04/19 Venlafaxine HCl ER [Effexor XR] 150 mg PO DAILY@159910/03/17 07/04/19 Ascorbic Acid [Vitamin C] 500 mg PO BID@0400,159904/25/19 07/04/19 Calcium/Magnesium/Zinc 1 tab PO DAILY@159904/25/19 07/04/19 [Iqjbdlm-Hxwpngrvg-Ekks Tablet] Cyanocobalamin [Vitamin B-12] 500 mcg PO DAILY@159904/25/19 07/04/19 Levothyroxine Sodium [Synthroid] 150 mcg PO DAILY@0400 04/25/19 07/04/19 Magnesium Oxide [Grady] 500 mg PO DAILY@99904/25/19 07/04/19 Cholecalciferol (Vitamin D3) 2,000 unit PO DAILY@1200 05/22/19 07/04/19 [Vitamin D3] Dofetilide [Tikosyn] 125 mcg PO BID@0400,1600 05/22/19 07/04/19 Hyoscyamine Sulfate [Levsin] 0.25 mg PO TID@0400,1000,1600 05/22/19 07/04/19 Ipratropium/Albuterol Sulfate 1 puff INHALATION QID PRN 05/22/19 07/04/19 [Combivent Respimat Inhaler] Lidocaine 5% Patch [Lidoderm 5% 1 patch TOPICAL DAILY PRN 05/22/19 07/04/19 Patch] Multivit-Min/Iron/Folic/Lutein 1 tab PO DAILY@1600 05/22/19 07/04/19 [Centrum Silver Women Tablet] Besifloxacin HCl [Besivance] 1 drop RIGHT EYE TID@0400,1000,1600 07/04/19 07/04/19 Difluprednate [Durezol] 1 drop RIGHT EYE BID@1000,1600 07/04/19 07/04/19 Metoprolol Tartrate [Lopressor] 25 mg PO TID@0400,1200,2000 07/04/19 07/04/19 Nepafenac [Ilevro] 1 drop RIGHT EYE DAILY@1200 07/04/19 07/04/19 oxyCODONE-APAP 7.5-325MG [Percocet 1 tab PO TID@0400,1000,1600 07/04/19 07/04/19 7.5-325 mg] Allergies Allergy/AdvReac Type Severity Reaction Status Date / Time No Known Allergies Allergy Verified 12/20/19 17:05 Review of Systems ROS Statement: Those systems with pertinent positive or pertinent negative responses have been documented in the HPI. ROS Other: All systems not noted in ROS Statement are negative. Past Medical History Past Medical History: Chest Pain / Angina, GERD/Reflux, Hyperlipidemia, Hypertension, Myocardial Infarction (AL), Mitral Valve Prolapse (MVP), Neurologic Disorder, Osteoarthritis (OA), Pneumonia Additional Past Medical History / Comment(s): enlarged heart, irrregular heart beat-afib, DDD,HERNIATED DISC, lesions on brain which maybe due to possible MS. Last Myocardial Infarction Date:: several years ago History of Any Multi-Drug Resistant Organisms: None Reported Past Surgical History: Appendectomy, Hysterectomy, Tonsillectomy Additional Past Surgical History / Comment(s): LASER SURG TO BACK Past Anesthesia/Blood Transfusion Reactions: No Reported Reaction Past Psychological History: Depression, PTSD Smoking Status: Former smoker Past Alcohol Use History: None Reported Past Drug Use History: None Reported - Past Family History Father Family Medical History: Cancer Additional Family Medical History / Comment(s): PROSTATE AND LUNG CANCER Mother Family Medical History: CVA/TIA, Hypertension General Exam Limitations: no limitations Course Vital Signs 12/20/19 12/20/19 17:04 17:05 Temperature 98.6 F Pulse Rate 69 Respiratory 22 20 Rate Blood Pressure 141/89 O2 Sat by Pulse 95 Oximetry Procedures - Laceration Laceration #1 Consent Obtained: verbal consent Indication: laceration Site: face Description: linear (1 cm), clean Depth: simple, single layer Anesthetic Used: lidocaine 1% Anesthesia Technique: local infiltration Type of Sutures: nylon Size of Sutures: 6-0 Technique: simple, interrupted (2 stitches) Patient Tolerated Procedure: well Medical Decision Making - Medical Decision Making Laceration repair was performed at bedside. Patient tolerated procedure well. Discussed with mother that stitches should be removed in 3-5 days. Return parameters discussed. Patient clear for discharge. - Lab Data Result diagrams: 12/20/19 17:39 12/20/19 17:39 Lab Results 12/20/19 12/20/19 Range/Units 17:39 17:39 WBC 8.2 (3.8-10.6) k/uL RBC 4.40 (3.80-5.40) m/uL Hgb 13.7 (11.4-16.0) gm/dL Hct 41.7 (34.0-46.0) % MCV 94.8 (80.0-100.0) fL MCH 31.1 (25.0-35.0) pg MCHC 32.9 (31.0-37.0) g/dL RDW 13.5 (11.5-15.5) % Plt Count 228 (150-450) k/uL Neutrophils % 68 % Lymphocytes % 22 % Monocytes % 5 % Eosinophils % 3 % Basophils % 0 % Neutrophils # 5.6 (1.3-7.7) k/uL Lymphocytes # 1.8 (1.0-4.8) k/uL Monocytes # 0.4 (0-1.0) k/uL Eosinophils # 0.2 (0-0.7) k/uL Basophils # 0.0 (0-0.2) k/uL Sodium 137 (137-145) mmol/L Potassium 4.2 (3.5-5.1) mmol/L Chloride 103 (98-107) mmol/L Carbon Dioxide 24 (22-30) mmol/L Anion Gap 10 mmol/L BUN 14 (7-17) mg/dL Creatinine 0.73 (0.52-1.04) mg/dL Est GFR (CKD-EPI)AfAm >90 (>60 ml/min/1.73 sqM) Est GFR (CKD-EPI)NonAf 89 (>60 ml/min/1.73 sqM) Glucose 120 H (74-99) mg/dL Calcium 9.9 (8.4-10.2) mg/dL Disposition Clinical Impression: Laceration Disposition: HOME SELF-CARE Condition: Good Instructions (If sedation given, give patient instructions): Laceration (ED), Care For Your Stitches (ED) Additional Instructions: Suture removal in 3-5 days Is patient prescribed a controlled substance at d/c from ED?: No Referrals: Karlo Carrion DO [Primary Care Provider] - 1-2 days Time of Disposition: 18:26
--- NOTE | 2019-12-20 17:54 | XR ---
EXAMINATION TYPE: XR chest 2V DATE OF EXAM: 12/20/2019 COMPARISON: 07/04/2019 HISTORY: Increased shortness of breath and bilateral lower extremity swelling for 2 weeks TECHNIQUE: Frontal and lateral views of the chest are obtained. FINDINGS: There is no focal air space opacity, pleural effusion, or pneumothorax seen. Stable enlar gement of the main pulmonary artery/hilum suggesting pulmonary internal hypertension. The cardiac bhaskar houette size is within normal limits. The osseous structures are intact. Moderate degenerative dobson ge of the spine. IMPRESSION: Chronic changes with no acute cardiopulmonary process.
[2019-12-20 17:59] LABS: Basophils % (A) 0 %; Eosinophils # (A) 0.2 k/uL (0-0.7); Eosinophils % (A) 3 %; HCT 41.7 % (34.0-46.0); HGB 13.7 gm/dL (11.4-16.0); Lymphocytes # (A) 1.8 k/uL (1.0-4.8); Lymphocytes % (A) 22 %; MCH 31.1 pg (25.0-35.0); MCHC 32.9 g/dL (31.0-37.0); MCV 94.8 fL (80.0-100.0); Mean Platelet Volume 9.2; Monocytes # (A) 0.4 k/uL (0-1.0); Monocytes % (A) 5 %; Neutrophils # (A) 5.6 k/uL (1.3-7.7); Neutrophils % (A) 68 %; Platelet Count 228 k/uL (150-450); RDW 13.5 % (11.5-15.5); WBC 8.2 k/uL (3.8-10.6)
[2019-12-20 18:18] LABS: African American GFR (CKD) >90 (>60 ml/min/1.73 sqM); Anion Gap 10 mmol/L; Blood Urea Nitrogen 14 mg/dL (7-17); Calcium 9.9 mg/dL (8.4-10.2); Carbon Dioxide 24 mmol/L (22-30); Chloride 103 mmol/L (98-107); Glucose 120 mg/dL (74-99); Non-African American GFR(CKD) 89 (>60 ml/min/1.73 sqM); Potassium 4.2 mmol/L (3.5-5.1); Sodium 137 mmol/L (137-145)
--- NOTE | 2019-12-20 18:29 | ED ---
Medical Decision Making - Medical Decision Making Dictation was produced using [employer] dictation software. please excuse any grammatical, word or spelling errors. This patient was cared for during a federal and state declared state of emergency secondary to Covid 19 Chief Complaint: 59 y old female past mental history of heart failure presents with lower extremity edema. History of Present Illness: 59-year-old female she has past medical history of heart failure. Patient states that she feels swollen in her lower legs. Patient struggles with this per usual. She does have also a history of atrial fibrillation. She takes apixaban. Patient is on Lasix. She takes 40 mg daily. Patient reports that she noticed the swelling in her legs especially today. Yesterday she had 2 cans of cream of mushroom soup. She usually is on a low- sodium diet. Patient states she has some mild dyspnea today as well. Denies any cough. No fever, chills or night sweats. The ROS documented in this emergency department record has been reviewed and confirmed by me. Those systems with pertinent positive or negative responses have been documented in the HPI. All other systems are other negative and/or n oncontributory. PHYSICAL EXAM: General Impression: Alert and oriented x3, not in acute distress HEENT: Normocephalic atraumatic, extra-ocular movements intact, pupils equal and reactive to light bilaterally, mucous membranes moist. Cardiovascular: Heart regular rate and rhythm Chest: Able to complete full sentences, no retractions, no tachypnea Abdomen: abdomen soft, non-tender, non-distended, no organomegaly Musculoskeletal: Pulses present and equal in all extremities, 1+ pitting edema bilaterally Motor: no focal deficits noted Neurological: CN II-XII grossly intact, no focal motor or sensory deficits noted Skin: Intact with no visualized rashes Psych: Normal affect and mood ED course: 59-year-old female presents with clinical presentation concerning for mild heart failure exacerbation. Vital signs on arrival are within acceptable limits.Laboratory evaluation obtained. CBC, metabolic panel is unremarkable. Chest x-rays negative. Patient given 40 mg IV Lasix. Patient clear for discharge. 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 Return precautions discussed patient agreeable. EKG interpretation: Ventricular rate 67, normal sinus rhythm, AL interval 152, QRS 18, QTc 469. No AL prolongation, no QTC prolongation, no ST or T-wave changes noted. No old EKG for comparison. Overall, this EKG is unremarkable - Lab Data Result diagrams: 12/20/19 17:39 12/20/19 17:39 Lab Results 12/20/19 12/20/19 12/20/19 Range/Units 17:39 17:39 17:39 WBC 8.2 (3.8-10.6) k/uL RBC 4.40 (3.80-5.40) m/uL Hgb 13.7 (11.4-16.0) gm/dL Hct 41.7 (34.0-46.0) % MCV 94.8 (80.0-100.0) fL MCH 31.1 (25.0-35.0) pg MCHC 32.9 (31.0-37.0) g/dL RDW 13.5 (11.5-15.5) % Plt Count 228 (150-450) k/uL Neutrophils % 68 % Lymphocytes % 22 % Monocytes % 5 % Eosinophils % 3 % Basophils % 0 % Neutrophils # 5.6 (1.3-7.7) k/uL Lymphocytes # 1.8 (1.0-4.8) k/uL Monocytes # 0.4 (0-1.0) k/uL Eosinophils # 0.2 (0-0.7) k/uL Basophils # 0.0 (0-0.2) k/uL Sodium 137 (137-145) mmol/L Potassium 4.2 (3.5-5.1) mmol/L Chloride 103 (98-107) mmol/L Carbon Dioxide 24 (22-30) mmol/L Anion Gap 10 mmol/L BUN 14 (7-17) mg/dL Creatinine 0.73 (0.52-1.04) mg/dL Est GFR (CKD-EPI)AfAm >90 (>60 ml/min/1.73 sqM) Est GFR (CKD-EPI)NonAf 89 (>60 ml/min/1.73 sqM) Glucose 120 H (74-99) mg/dL Calcium 9.9 (8.4-10.2) mg/dL Troponin I (0.000-0.034) ng/mL NT-Pro-B Natriuret Pep 84 pg/mL 05/22/20 Range/Units 17:39 WBC (3.8-10.6) k/uL RBC (3.80-5.40) m/uL Hgb (11.4-16.0) gm/dL Hct (34.0-46.0) % MCV (80.0-100.0) fL MCH (25.0-35.0) pg MCHC (31.0-37.0) g/dL RDW (11.5-15.5) % Plt Count (150-450) k/uL Neutrophils % % Lymphocytes % % Monocytes % % Eosinophils % % Basophils % % Neutrophils # (1.3-7.7) k/uL Lymphocytes # (1.0-4.8) k/uL Monocytes # (0-1.0) k/uL Eosinophils # (0-0.7) k/uL Basophils # (0-0.2) k/uL Sodium (137-145) mmol/L Potassium (3.5-5.1) mmol/L Chloride (98-107) mmol/L Carbon Dioxide (22-30) mmol/L Anion Gap mmol/L BUN (7-17) mg/dL Creatinine (0.52-1.04) mg/dL Est GFR (CKD-EPI)AfAm (>60 ml/min/1.73 sqM) Est GFR (CKD-EPI)NonAf (>60 ml/min/1.73 sqM) Glucose (74-99) mg/dL Calcium (8.4-10.2) mg/dL Troponin I <0.012 (0.000-0.034) ng/mL NT-Pro-B Natriuret Pep pg/mL Disposition Clinical Impression: Leg edema, Congestive heart failure Disposition: HOME SELF-CARE Condition: Good Instructions (If sedation given, give patient instructions): Heart Failure (ER) Is patient prescribed a controlled substance at d/c from ED?: No Referrals: Karlo Carrion DO [Primary Care Provider] - 1-2 days Time of Disposition: 18:36
[2019-12-20] MEDS ORDERED: FUROSEMIDE 10 MG/ML 4 ML VIAL IV STA (18:33)
[2019-12-20 18:58] VITALS: BP 112/70; PULSE 63; RESP 18; TEMP 97.9
== END 2019-12-20 18:50 | disposition home or self-care (01) ==
LOC: EC 16:56
DX: I11.0 Hypertensive heart disease with heart failure (principal); I50.9 Heart failure, unspecified; S01.81XA Laceration without foreign body of other part of head, initial encounter; E78.5 Hyperlipidemia, unspecified; I25.2 Old myocardial infarction; I48.91 Unspecified atrial fibrillation; K21.9 Gastro-esophageal reflux disease without esophagitis; F32.9 Major depressive disorder, single episode, unspecified; Z79.01 Long term (current) use of anticoagulants; Z79.890 Hormone replacement therapy; Z79.899 Other long term (current) drug therapy; Z87.891 Personal history of nicotine dependence; X58.XXXA Exposure to other specified factors, initial encounter
CPT/HCPCS: 36415; 93005; 83880; 80048; 84484; 85025; 71046; 99285; 12011; 96374; J1940

== ENCOUNTER 2019-12-22 12:29 | Inpatient (IN) | payer BC ==
[2019-12-22] MEDS ORDERED: SODIUM CHLORIDE 0.9% 1,000 ML IV STA (12:56)
[2019-12-22 13:58] LABS: Basophils % (A) 0 %; Eosinophils # (A) 0.1 k/uL (0-0.7); Eosinophils % (A) 2 %; HCT 40.3 % (34.0-46.0); HGB 13.1 gm/dL (11.4-16.0); Lymphocytes # (A) 1.6 k/uL (1.0-4.8); Lymphocytes % (A) 23 %; MCH 31.1 pg (25.0-35.0); MCHC 32.5 g/dL (31.0-37.0); MCV 95.7 fL (80.0-100.0); Mean Platelet Volume 8.9; Monocytes # (A) 0.4 k/uL (0-1.0); Monocytes % (A) 6 %; Neutrophils # (A) 4.8 k/uL (1.3-7.7); Neutrophils % (A) 68 %; Platelet Count 223 k/uL (150-450); RBC 4.21 m/uL (3.80-5.40); RDW 13.5 % (11.5-15.5); WBC 7.1 k/uL (3.8-10.6)
--- NOTE | 2019-12-22 14:06 | ED ---
General Adult HPI - General Source: patient, RN notes reviewed, old records reviewed Mode of arrival: ambulatory Limitations: no limitations <Jackie Crowder - Last Filed: 12/22/19 15:31> <Loren Fnin - Last Filed: 12/24/19 02:50> - General Chief complaint: Shortness of Breath Stated complaint: CHF Time Seen by Provider: 12/22/19 12:40 - History of Present Illness Initial comments: Patient is a 59-year-old female who presents the emergency department today for evaluation with shortness of breath, worse with laying back. She does report that she is having some chest discomfort. She states that she is also some lower extremity swelling. She sees numbers for 2 days ago was given 1 dose of Lasix. She reports that she is came back because of the progressive dyspnea. She does complain of some dull chest discomfort. Patient states that she's had no specific fevers or chills. Denies a cough. (Jackie Crowder) - Related Data Home Medications Medication Instructions Recorded Confirmed Lansoprazole [Prevacid] 30 mg PO BID@0400,159901/20/14 12/22/19 Spironolactone [Aldactone] 25 mg PO DAILY@39901/20/14 12/22/19 Apixaban [Eliquis] 5 mg PO BID@0400,159903/28/16 12/22/19 Atorvastatin [Lipitor] 40 mg PO DAILY@99903/28/16 12/22/19 Calcium Carbonate/Vitamin D3 1 tab PO DAILY@39903/28/16 12/22/19 [Calcium 600-Vit D3 200 Tablet] Ferrous Sulfate [Feosol] 325 mg PO DAILY@39903/28/16 12/22/19 Furosemide [Lasix] 40 mg PO DAILY@99903/28/16 12/22/19 Gabapentin 600 mg PO QID@04,10,16,22 03/28/16 12/22/19 [place]-3 Fatty Acids/Fish Oil [Fish 1 cap PO DAILY@99903/28/16 12/22/19 Oil 1,000 mg Softgel] Potassium Chloride ER [K-Dur 20] 20 meq PO DAILY@99903/28/16 12/22/19 Baclofen [Lioresal] 20 mg PO TID@0400,1000,1600 PRN 03/06/18 05/24/20 Losartan Potassium [Cozaar] 25 mg PO DAILY@1000 10/03/17 12/22/19 Venlafaxine HCl ER [Effexor XR] 150 mg PO DAILY@159910/03/17 12/22/19 Ascorbic Acid [Vitamin C] 500 mg PO BID@0400,1600 04/25/19 12/22/19 Calcium/Magnesium/Zinc 1 tab PO DAILY@159904/25/19 12/22/19 [Xgrbjqy-Gvwmmdumv-Uvgl Tablet] Cyanocobalamin [Vitamin B-12] 500 mcg PO DAILY@159904/25/19 12/22/19 Levothyroxine Sodium [Synthroid] 150 mcg PO DAILY@39904/25/19 12/22/19 Magnesium Oxide [Grady] 500 mg PO DAILY@99904/25/19 12/22/19 Cholecalciferol (Vitamin D3) 2,000 unit PO DAILY@119905/22/19 12/22/19 [Vitamin D3] Dofetilide [Tikosyn] 125 mcg PO BID@0400,159905/22/19 12/22/19 Hyoscyamine Sulfate [Levsin] 0.125 mg PO BID@1000,159905/22/19 12/22/19 Multivit-Min/Iron/Folic/Lutein 1 tab PO DAILY@159905/22/19 12/22/19 [Centrum Silver Women Tablet] Metoprolol Tartrate [Lopressor] 25 mg PO TID@0400,1200,199907/04/19 12/22/19 oxyCODONE-APAP 7.5-325MG [Percocet 1 tab PO TID@0400,1000,159907/04/19 12/22/19 7.5-325 mg] Albuterol Inhaler [Ventolin Hfa 2 puff INHALATION RT-Q6H PRN 12/22/19 12/22/19 Inhaler] Lidocaine HCl [Aspercreme] 1 applic TOPICAL DAILY PRN 12/22/19 12/22/19 Allergies Allergy/AdvReac Type Severity Reaction Status Date / Time No Known Allergies Allergy Verified 12/22/19 12:35 Review of Systems ROS Other: All systems not noted in ROS Statement are negative. <Jackie Crowder - Last Filed: 12/22/19 15:31> ROS Other: All systems not noted in ROS Statement are negative. <Loren Finn - Last Filed: 12/24/19 02:50> ROS Statement: Those systems with pertinent positive or pertinent negative responses have been documented in the HPI. Past Medical History Past Medical History: Chest Pain / Angina, Heart Failure, GERD/Reflux, Hyperlipidemia, Hypertension, Myocardial Infarction (PA), Mitral Valve Prolapse (MVP), Neurologic Disorder, Osteoarthritis (OA), Pneumonia Additional Past Medical History / Comment(s): enlarged heart, irrregular heart beat-afib, DDD,HERNIATED DISC, lesions on brain which maybe due to possible MS. Last Myocardial Infarction Date:: several years ago History of Any Multi-Drug Resistant Organisms: None Reported Past Surgical History: Appendectomy, Hysterectomy, Tonsillectomy Additional Past Surgical History / Comment(s): LASER SURG TO BACK Past Anesthesia/Blood Transfusion Reactions: No Reported Reaction Past Psychological History: Depression, PTSD Smoking Status: Former smoker Past Alcohol Use History: None Reported Past Drug Use History: None Reported - Past Family History Father Family Medical History: Cancer Additional Family Medical History / Comment(s): PROSTATE AND LUNG CANCER Mother Family Medical History: CVA/TIA, Hypertension <Jackie Crowder - Last Filed: 12/22/19 15:31> General Exam Limitations: no limitations General appearance: alert, in no apparent distress Head exam: Present: atraumatic, normocephalic, normal inspection Eye exam: Present: normal appearance, PERRL, EOMI. Absent: scleral icterus, conjunctival injection, periorbital swelling ENT exam: Present: normal exam, mucous membranes moist Neck exam: Present: normal inspection. Absent: tenderness, meningismus, lymphadenopathy Respiratory exam: Present: normal lung sounds bilaterally. Absent: respiratory distress, wheezes, rales, rhonchi, stridor Cardiovascular Exam: Present: regular rate, normal rhythm, normal heart sounds. Absent: systolic murmur, diastolic murmur, rubs, gallop, clicks GI/Abdominal exam: Present: soft, normal bowel sounds. Absent: distended, tenderness, guarding, rebound, rigid Extremities exam: Present: normal inspection, full ROM, normal capillary refill. Absent: tenderness, pedal edema, joint swelling, calf tenderness Back exam: Present: normal inspection Neurological exam: Present: alert, oriented X3, CN II-XII intact Psychiatric exam: Present: normal affect, normal mood Skin exam: Present: warm, dry, intact, normal color. Absent: rash <Jackie Crowder - Last Filed: 12/22/19 15:31> - General Exam Comments Initial Comments: 59-year-old female. Alert and oriented. no Distress. (Jackie Crowder) Course Vital Signs 12/22/19 12/22/19 12/22/19 12:33 13:45 14:40 Temperature 98.4 F Pulse Rate 64 59 L Respiratory 18 20 18 Rate Blood Pressure 117/80 100/74 O2 Sat by Pulse 98 99 Oximetry 12/22/19 12/22/19 16:18 17:23 Temperature 98.0 F 98.0 F Pulse Rate 58 L 63 Respiratory 18 18 Rate Blood Pressure 120/76 116/65 O2 Sat by Pulse 97 100 Oximetry Medical Decision Making - Lab Data Result diagrams: 12/22/19 13:49 12/22/19 13:49 - Radiology Data Radiology results: report reviewed <Jackie Crowder - Last Filed: 12/22/19 15:31> - Lab Data Result diagrams: 12/23/19 05:41 12/23/19 05:41 <Loren Finn - Last Filed: 12/24/19 02:50> - Medical Decision Making 59-year-old female presents emergency room today with complaints alert 70 swelling, shortness of breath and chest pain. Patient d-dimer is negative. BNP and troponin are unremarkable. Due to patient's persistent reevaluation Pat ient is sent back to emergency department. Discussed the case with Dr. Nina and agrees to set the admission after discussing with . Patient was admitted for chest pain observation with cardiac consult. (Jackie Crowder) I was available for consultation in the emergency department. The history and physical exam were done by the midlevel provider. I was consulted for this patients care. I reviewed the case with the midlevel provider and based on their presentation of the patient, I agree with the assessment, medical decision making and plan of care as documented. Chart was dictated using [employer] dictation software. Attempts were made to correct any dictation errors however some typographical errors may persist. Patient was seen during a national state of emergency due to the Covid-19 pandemic. (Loren Finn) - Lab Data Lab Results 12/22/19 12/22/19 12/22/19 Range/Units 13:49 13:49 13:49 WBC 7.1 (3.8-10.6) k/uL RBC 4.21 (3.80-5.40) m/uL Hgb 13.1 (11.4-16.0) gm/dL Hct 40.3 (34.0-46.0) % MCV 95.7 (80.0-100.0) fL MCH 31.1 (25.0-35.0) pg MCHC 32.5 (31.0-37.0) g/dL RDW 13.5 (11.5-15.5) % Plt Count 223 (150-450) k/uL Neutrophils % 68 % Lymphocytes % 23 % Monocytes % 6 % Eosinophils % 2 % Basophils % 0 % Neutrophils # 4.8 (1.3-7.7) k/uL Lymphocytes # 1.6 (1.0-4.8) k/uL Monocytes # 0.4 (0-1.0) k/uL Eosinophils # 0.1 (0-0.7) k/uL Basophils # 0.0 (0-0.2) k/uL PT 10.4 (9.0-12.0) sec INR 1.0 (<1.2) APTT 24.7 (22.0-30.0) sec D-Dimer 0.35 (<0.60) mg/L FEU Sodium 139 (137-145) mmol/L Potassium 3.9 (3.5-5.1) mmol/L Chloride 103 (98-107) mmol/L Carbon Dioxide 26 (22-30) mmol/L Anion Gap 10 mmol/L BUN 14 (7-17) mg/dL Creatinine 0.69 (0.52-1.04) mg/dL Est GFR (CKD-EPI)AfAm >90 (>60 ml/min/1.73 sqM) Est GFR (CKD-EPI)NonAf >90 (>60 ml/min/1.73 sqM) Glucose 107 H (74-99) mg/dL Plasma Lactic Acid Kalpesh (0.7-2.0) mmol/L Calcium 9.6 (8.4-10.2) mg/dL Magnesium 2.0 (1.6-2.3) mg/dL Total Bilirubin 0.5 (0.2-1.3) mg/dL AST 32 (14-36) U/L ALT 40 H (4-34) U/L Alkaline Phosphatase 107 (38-126) U/L Troponin I (0.000-0.034) ng/mL NT-Pro-B Natriuret Pep pg/mL Total Protein 6.8 (6.3-8.2) g/dL Albumin 4.3 (3.5-5.0) g/dL Urine Color Urine Appearance (Clear) Urine pH (5.0-8.0) Ur Specific [place] (1.001-1.035) Urine Protein (Negative) Urine Glucose (UA) (Negative) Urine Ketones (Negative) Urine Blood (Negative) Urine Nitrite (Negative) Urine Bilirubin (Negative) Urine Urobilinogen (<2.0) mg/dL Ur Leukocyte Esterase (Negative) Coronavirus (PCR) (Not Detected) 12/22/19 12/22/19 12/22/19 Range/Units 13:49 13:49 13:49 WBC (3.8-10.6) k/uL RBC (3.80-5.40) m/uL Hgb (11.4-16.0) gm/dL Hct (34.0-46.0) % MCV (80.0-100.0) fL MCH (25.0-35.0) pg MCHC (31.0-37.0) g/dL RDW (11.5-15.5) % Plt Count (150-450) k/uL Neutrophils % % Lymphocytes % % Monocytes % % Eosinophils % % Basophils % % Neutrophils # (1.3-7.7) k/uL Lymphocytes # (1.0-4.8) k/uL Monocytes # (0-1.0) k/uL Eosinophils # (0-0.7) k/uL Basophils # (0-0.2) k/uL PT (9.0-12.0) sec INR (<1.2) APTT (22.0-30.0) sec D-Dimer (<0.60) mg/L FEU Sodium (137-145) mmol/L Potassium (3.5-5.1) mmol/L Chloride (98-107) mmol/L Carbon Dioxide (22-30) mmol/L Anion Gap mmol/L BUN (7-17) mg/dL Creatinine (0.52-1.04) mg/dL Est GFR (CKD-EPI)AfAm (>60 ml/min/1.73 sqM) Est GFR (CKD-EPI)NonAf (>60 ml/min/1.73 sqM) Glucose (74-99) mg/dL Plasma Lactic Acid Kalpesh 1.7 (0.7-2.0) mmol/L Calcium (8.4-10.2) mg/dL Magnesium (1.6-2.3) mg/dL Total Bilirubin (0.2-1.3) mg/dL AST (14-36) U/L ALT (4-34) U/L Alkaline Phosphatase (38-126) U/L Troponin I <0.012 (0.000-0.034) ng/mL NT-Pro-B Natriuret Pep 80 pg/mL Total Protein (6.3-8.2) g/dL Albumin (3.5-5.0) g/dL Urine Color Urine Appearance (Clear) Urine pH (5.0-8.0) Ur Specific [place] (1.001-1.035) Urine Protein (Negative) Urine Glucose (UA) (Negative) Urine Ketones (Negative) Urine Blood (Negative) Urine Nitrite (Negative) Urine Bilirubin (Negative) Urine Urobilinogen (<2.0) mg/dL Ur Leukocyte Esterase (Negative) Coronavirus (PCR) (Not Detected) 12/22/19 12/22/19 Range/Units 13:49 14:50 WBC (3.8-10.6) k/uL RBC (3.80-5.40) m/uL Hgb (11.4-16.0) gm/dL Hct (34.0-46.0) % MCV (80.0-100.0) fL MCH (25.0-35.0) pg MCHC (31.0-37.0) g/dL RDW (11.5-15.5) % Plt Count (150-450) k/uL Neutrophils % % Lymphocytes % % Monocytes % % Eosinophils % % Basophils % % Neutrophils # (1.3-7.7) k/uL Lymphocytes # (1.0-4.8) k/uL Monocytes # (0-1.0) k/uL Eosinophils # (0-0.7) k/uL Basophils # (0-0.2) k/uL PT (9.0-12.0) sec INR (<1.2) APTT (22.0-30.0) sec D-Dimer (<0.60) mg/L FEU Sodium (137-145) mmol/L Potassium (3.5-5.1) mmol/L Chloride (98-107) mmol/L Carbon Dioxide (22-30) mmol/L Anion Gap mmol/L BUN (7-17) mg/dL Creatinine (0.52-1.04) mg/dL Est GFR (CKD-EPI)AfAm (>60 ml/min/1.73 sqM) Est GFR (CKD-EPI)NonAf (>60 ml/min/1.73 sqM) Glucose (74-99) mg/dL Plasma Lactic Acid Kalpesh (0.7-2.0) mmol/L Calcium (8.4-10.2) mg/dL Magnesium (1.6-2.3) mg/dL Total Bilirubin (0.2-1.3) mg/dL AST (14-36) U/L ALT (4-34) U/L Alkaline Phosphatase (38-126) U/L Troponin I (0.000-0.034) ng/mL NT-Pro-B Natriuret Pep pg/mL Total Protein (6.3-8.2) g/dL Albumin (3.5-5.0) g/dL Urine Color Yellow Urine Appearance Clear (Clear) Urine pH 6.5 (5.0-8.0) Ur Specific [place] 1.023 (1.001-1.035) Urine Protein Trace H (Negative) Urine Glucose (UA) Negative (Negative) Urine Ketones Negative (Negative) Urine Blood Negative (Negative) Urine Nitrite Negative (Negative) Urine Bilirubin Negative (Negative) Urine Urobilinogen <2.0 (<2.0) mg/dL Ur Leukocyte Esterase Negative (Negative) Coronavirus (PCR) Not Detected (Not Detected) 12/22/19 14:27 EKG shows sinus bradycardia left axis deviation. Ventricular rate of 57 beats were minute. FL interval is 170 ms. Stressors 104 ms. QT QTc is 460/447 ms. (Jackie Crowder) - Radiology Data Chest x-ray shows no acute critical me process. Findings again suggesting pr imary arterial hypertension seen on 07/04/2019 (Jackie Crowder) Disposition Is patient prescribed a controlled substance at d/c from ED?: No Time of Disposition: 15:33 <Jackie Crowder - Last Filed: 12/22/19 15:31> <Loren Finn - Last Filed: 12/24/19 02:50> Clinical Impression: Chest pain Disposition: ADMITTED IP TO THIS HOSP Condition: Stable
[2019-12-22 14:10] LABS: ALT 40 U/L (4-34); AST 32 U/L (14-36); African American GFR (CKD) >90 (>60 ml/min/1.73 sqM); Albumin 4.3 g/dL (3.5-5.0); Alkaline Phosphatase 107 U/L (38-126); Anion Gap 10 mmol/L; Blood Urea Nitrogen 14 mg/dL (7-17); Calcium 9.6 mg/dL (8.4-10.2); Carbon Dioxide 26 mmol/L (22-30); Chloride 103 mmol/L (98-107); Glucose 107 mg/dL (74-99); Non-African American GFR(CKD) >90 (>60 ml/min/1.73 sqM); Potassium 3.9 mmol/L (3.5-5.1); Sodium 139 mmol/L (137-145); Total Bilirubin 0.5 mg/dL (0.2-1.3); Total Protein 6.8 g/dL (6.3-8.2)
[2019-12-22 14:13] LABS: D-Dimer 0.35 mg/L FEU (<0.60); Partial Thromboplastin Time 24.7 sec (22.0-30.0); Prothrombin Time 10.4 sec (9.0-12.0)
--- NOTE | 2019-12-22 14:35 | XR ---
EXAMINATION TYPE: XR chest 2V DATE OF EXAM: 12/22/2019 COMPARISON: 12/20/2019 and 07/04/2019 HISTORY: Bilateral lower extremity swelling and shortness of breath TECHNIQUE: Frontal and lateral views of the chest are obtained. FINDINGS: There is no focal air space opacity, pleural effusion, or pneumothorax seen. Stable enlarg ement of the main pulmonary arteries/danni suggesting pulmonary artery hypertension. The cardiac silho uette size is stable. The osseous structures are intact. Moderate multilevel degenerative change of the thoracic spine. IMPRESSION: No acute cardiopulmonary process. Findings again suggesting pulmonary arterial hypertens ion as seen on the exam of 07/04/2019.
[2019-12-22 15:03] LABS: Appearance,Urine Clear (Clear); Bilirubin,Urine Negative (Negative); Blood,Urine Negative (Negative); Color,Urine Yellow; Glucose,Urine (UA) Negative (Negative); Ketones,Urine Negative (Negative); Leukocyte Esterase,Urine Negative (Negative); Nitrite,Urine Negative (Negative); PH, Urine 6.5 (5.0-8.0); Protein,Urine Trace (Negative); Specific Gravity,Urine 1.023 (1.001-1.035); Urobilinogen,Urine <2.0 mg/dL (<2.0)
[2019-12-22] MEDS ORDERED: IBUPROFEN 400 MG TAB PO PRN (15:33)
[2019-12-22] MEDS ORDERED: ACETAMINOPHEN TAB 325 MG TAB PO PRN (15:33)
[2019-12-22] MEDS ORDERED: NALOXONE 0.4 MG/ML 1 ML VIAL IV PRN (15:33)
[2019-12-22] MEDS ORDERED: NITROGLYCERIN SL TABS 0.4 MG TAB SUBLINGUAL PRN (15:34)
[2019-12-22] MEDS ORDERED: ASPIRIN 81 MG PO STA (15:34)
[2019-12-22] MEDS ORDERED: SODIUM CHLORIDE 0.9% 1,000 ML IV SCH (15:45)
[2019-12-22] MEDS ORDERED: IPRATROPIUM-ALBUTEROL 3 ML NEB INHALATION PRN (17:46)
[2019-12-22] MEDS ORDERED: TEMAZEPAM 15 MG CAP PO PRN (17:46)
[2019-12-22] MEDS ORDERED: ALPRAZolam 0.25 MG TAB PO PRN (17:46)
[2019-12-22] MEDS: FUROSEMIDE 10 MG/ML 2 ML VIAL IV SCH (18:53)
[2019-12-22] MEDS: IPRATROPIUM-ALBUTEROL 3 ML NEB INHALATION SCH (19:21)
[2019-12-22] MEDS ORDERED: HEPARIN SODIUM,PORCINE 5,000 UNIT/ML 1 ML VIAL SQ SCH (21:00)
--- NOTE | 2019-12-22 21:17 | HP ---
HISTORY AND PHYSICAL DATE OF SERVICE: 12/22/2019 CHIEF COMPLAINT: Shortness of breath and leg edema and CHF. HISTORY OF PRESENT ILLNESS: This 59-year-old woman with a past medical history of multiple medical problems including history of CHF, history of GERD, hypertension, hyperlipidemia, myocardial infarction, mitral valve prolapse, history of pneumonia, history of enlarged heart, irregular heartbeat, being followed by Dr. Carrion in the outpatient setting was not feeling well for the past couple weeks. The patient apparently came to [facility] yesterday with complaints of shortness of breath and leg edema. CHF was diagnosed and patient was sent home but today the patient is again presenting with significant shortness of breath, some chest discomfort as well as bilateral leg swelling. The patient described the pain as ill defined felt in the anterior part of chest without much radiation. There is no history of fever, rigors. No history of any fever, any cough, any hematochezia or melena at this time. PAST MEDICAL HISTORY: GERD, hypertension, hyperlipidemia, myocardial infarction, history of depression, PTSD. MEDICATIONS: Prior to admission include: 1. Oxycodone 7.5 mg p.o. t.i.d. 2. Effexor XR 150 mg p.o. daily. 3. Aldactone 25 mg daily. 4. K-Dur 20 mEq p.o. daily. 5. [place]-3 fatty acids daily. 6. Ilevro 1 drop right eye. 7. Multivitamins 1 p.o. daily. 8. Lopressor 25 mg p.o. t.i.d. 9. Magnesium oxide 500 mg p.o. daily. 10.Losartan 25 mg p.o. daily. 11.Lidocaine 1 patch daily p.r.n. 12.Levothyroxine 150 mg p.o. daily. 13.Prevacid 30 mg p.o. b.i.d. 14.Combivent 1 puff q.i.d. 15.Levsin 0.25 mg t.i.d. 16.Gabapentin 600 mg p.o. q.i.d. 17.Lasix 40 mg. 18.Iron sulfate 320 mg p.o. daily. 19.Tikosyn 120 mg p.o. b.i.d. 20.Durezol 1 drop right eye b.i.d. 21.Vitamin B12 500 mcg p.o. daily. 22.Vitamin D3 2000 p.o. daily. 23.Calcium with vitamin D. 24.Besifloxacin 1 drop right eye t.i.d. 25.Lioresal 20 mg p.o. t.i.d. 26.Lipitor 40 mg p.o. daily. 27.Vitamin C 500 mg p.o. b.i.d. 28.Eliquis 5 mg p.o. b.i.d. ALLERGIES: None. FAMILY HISTORY: History of prostate and lung cancer in the family. SOCIAL HISTORY: Previous history of smoking. No history of current smoking or alcohol intake. REVIEW OF SYSTEMS: ENT: No diminished vision. No diminished hearing. Cardio system: As mentions earlier. RESPIRATORY: Mentioned earlier. GI no nausea or vomiting. no dysuria. Nervous system: No numbness or weakness. ALLERGY/IMMUNOLOGY: No asthma or hayfever. MUSCULOSKELETAL as mentioned earlier. HEMATOLOGY/ONCOLOGY: No history of anemia. ENDOCRINE: No history of diabetes or hypothyroidism. CONSTITUTIONAL: As mentioned earlier. DERMATOLOGY: Negative. RHEUMATOLOGY: Negative. PSYCHIATRIC: As mentioned earlier. PHYSICAL EXAMINATION: The patient is alert and oriented times three. Pulse 58, blood pressure 124/76, respiration 18, temperature 98 degrees, pulse ox 97% on 2 L. HEENT is conjunctivae normal. Oral mucosa moist. NECK is no jugular venous distention. No carotid bruit. No lymph node enlargement. Cardiovascular systems: S1, S2 muffled. RESPIRATION: Breath sounds diminished in the bases. A few scattered rhonchi and crackles. ABDOMEN: Soft, obese, nontender. LEGS: Bilateral leg edema. NERVOUS SYSTEM: Higher functions as mentioned earlier. Moves all 4 limbs. No focal motor or sensory deficits. LYMPHATICS: No lymph nodes palpable in neck, axillae or groin. SKIN: No ulcer, rash or bleeding. JOINTS: No active deforming arthropathy. LABS: CBC within normal limits. Glucose 107, ALT is 40. ASSESSMENT: 1. Chest pain for evaluation, rule out unstable angina. 2. Shortness of breath for evaluation, rule out cor pulmonale. 3. Chronic obstructive pulmonary disease, possibly. 4. History of congestive heart failure possibly. 5. Gastroesophageal reflux disease. 6. Hypertension. 7. Hyperlipidemia. 8. History of myocardial infarction. 9. History of mitral valve prolapse. 10.History of degenerative joint disease. 11.History of pneumonia. 12.History of irregular heartbeat. 13.History of appendectomy. 14.Hysterectomy. 15.History of depression. 16.History of PTSD. 17.Remote history of nicotine dependence. 18.Obesity with body mass index of 41. 19.FULL CODE. RECOMMENDATIONS AND DISCUSSION: This 59-year-old woman who presented with multiple complex medical issues, we will monitor the patient closely. Continue the current management and recommend symptomatic treatment. I recommend admission and some bronchodilators. I recommend cardiology and pulmonology consultations. Continue to monitor. COVID-19 has been sent. Two-D echo with Doppler will be ordered. Otherwise, resume the home medications. Overall prognosis guarded because of multiple complex medical issues and further recommendations to follow. A copy of this dictation will be sent to Dr. Carrion who is the primary physician. KRISTA / EPHRAIM: [id number] /
[2019-12-22] MEDS: APIXABAN 5 MG TAB PO SCH (22:55)
[2019-12-23] MEDS: DOFETILIDE 125 MCG CAP PO SCH ×2 (04:28→16:24)
[2019-12-23 06:27] LABS: Basophils % (A) 0 %; Eosinophils # (A) 0.1 k/uL (0-0.7); Eosinophils % (A) 2 %; HCT 38.8 % (34.0-46.0); HGB 12.4 gm/dL (11.4-16.0); Lymphocytes # (A) 1.7 k/uL (1.0-4.8); Lymphocytes % (A) 26 %; MCH 30.5 pg (25.0-35.0); MCHC 31.8 g/dL (31.0-37.0); Monocytes # (A) 0.5 k/uL (0-1.0); Monocytes % (A) 7 %; Neutrophils # (A) 4.2 k/uL (1.3-7.7); Neutrophils % (A) 63 %; Platelet Count 187 k/uL (150-450); RBC 4.05 m/uL (3.80-5.40); RDW 13.5 % (11.5-15.5); WBC 6.7 k/uL (3.8-10.6)
[2019-12-23 06:38] LABS: African American GFR (CKD) >90 (>60 ml/min/1.73 sqM); Anion Gap 7 mmol/L; Blood Urea Nitrogen 17 mg/dL (7-17); Calcium 9.1 mg/dL (8.4-10.2); Carbon Dioxide 28 mmol/L (22-30); Chloride 103 mmol/L (98-107); Cholesterol 131 mg/dL (<200); Glucose 101 mg/dL (74-99); HDL Cholesterol 41 mg/dL (40-60); LDL Cholesterol,Calculated 59 mg/dL (0-99); Non-African American GFR(CKD) >90 (>60 ml/min/1.73 sqM); Sodium 138 mmol/L (137-145); Triglycerides 157 mg/dL (<150)
[2019-12-23] MEDS: PANTOPRAZOLE 40 MG TABLET PO SCH (07:00)
[2019-12-23] MEDS: IPRATROPIUM-ALBUTEROL 3 ML NEB INHALATION SCH ×3 (07:26→20:40)
[2019-12-23] MEDS ORDERED: METOPROLOL TARTRATE 25 MG TAB PO SCH (07:41)
[2019-12-23] MEDS: FUROSEMIDE 10 MG/ML 2 ML VIAL IV SCH (08:26)
[2019-12-23] MEDS: APIXABAN 5 MG TAB PO SCH ×2 (08:26→19:54)
[2019-12-23] MEDS: METOPROLOL TARTRATE 50 MG TAB PO SCH ×2 (08:26→19:54)
[2019-12-23] MEDS ORDERED: ASPIRIN 325 MG TAB PO SCH (09:00)
[2019-12-23] MEDS ORDERED: LIDOCAINE 4% CREAM 5 GM TUBE TOPICAL PRN (09:24)
[2019-12-23] MEDS ORDERED: FUROSEMIDE 10 MG/ML 2 ML VIAL IV ONE (09:30)
[2019-12-23] MEDS ORDERED: BACLOFEN 10 MG TAB PO PRN (10:00)
[2019-12-23] MEDS ORDERED: NON FORMULARY DRUG (Omega-3 Fatty Acids/Fish Oil [Fish Oil 1,000 Mg Softgel] 1 CAP) PO SCH (10:00)
[2019-12-23] MEDS: GABAPENTIN 300 MG CAP PO SCH ×3 (10:09→22:26)
[2019-12-23] MEDS: MAGNESIUM OXIDE 400 MG TAB PO SCH (10:09)
[2019-12-23] MEDS: ATORVASTATIN 40 MG TAB PO SCH (10:09)
[2019-12-23] MEDS: LOSARTAN 50 MG TAB PO SCH (10:09)
[2019-12-23] MEDS: CHOLECALCIFEROL 1,000 UNIT TAB PO SCH (10:09)
[2019-12-23] MEDS: SPIRONOLACTONE 25 MG TAB PO SCH (10:10)
--- NOTE | 2019-12-23 13:39 | P.PN ---
Subjective Progress Note Date: 12/23/19 Principal diagnosis: This is a 59-year-old female who was recently admitted with shortness of breath chest pain, and lower extremity swelling and possible congestive heart failure a nd is being closely monitored. Cardiology and pulmonary consulted and pending at this time. 2-D echo was ordered and pending at this time as well. Per nursing staff patient was in atrial fibrillation with RVR on the monitor this morning and home medications were reordered. Currently normal sinus rhythm on the monitor. To continue with telemetry at this time. Patient was given a dose of IV Lasix and was initiated on 40 mg daily oral. Patient's lower extremity swelling has slightly improved although noticing generalized edema and facial puffiness around the eyes on exam. Patient is quite lethargic and weak. D- dimer was 0.53 today. Covid 19 PCR done was negative. Review of systems: Constitutional: Reports fatigue, no reports of fevers or chills Cardiovascular: No reports of chest pain or palpitations Respiratory: Reports shortness of breath, no reports of cough GI: No reports of nausea, vomiting, or diarrhea : No reports of dysuria or retention Neurovascular: Reports mild weakness, no reports of numbness Active Medications Acetaminophen (Tylenol Tab) 650 mg PO Q6HR PRN PRN Reason: Mild Pain or Fever > 100.5 Hydrocodone Bitart/Acetaminophen ([place] 5-325) 1 each PO Q6HR PRN PRN Reason: Pain Albuterol/Ipratropium (Duoneb 0.5 Mg-3 Mg/3 Ml Soln) 3 ml INHALATION RT-TID [facility] Last Admin: 12/23/19 11:14 Dose: 3 ml Documented by: Albuterol/Ipratropium (Duoneb 0.5 Mg-3 Mg/3 Ml Soln) 3 ml INHALATION RT-TID PRN PRN Reason: Shortness Of Breath Or Wheezing Alprazolam (Xanax) 0.25 mg PO TID PRN PRN Reason: Anxiety Apixaban (Eliquis) 5 mg PO BID [facility] Last Admin: 12/23/19 08:26 Dose: 5 mg Documented by: Ascorbic Acid (Vitamin C) 500 mg PO BID@0400,1600 [facility] Atorvastatin Calcium (Lipitor) 40 mg PO DAILY@1000 [facility] Last Admin: 12/23/19 10:09 Dose: 40 mg Documented by: Baclofen (Lioresal) 20 mg PO TID@0400,1000,1600 PRN PRN Reason: Muscle Spasm Calcium Carbonate (Oscal 500+D) 1 each PO DAILY@0400 [facility] Cholecalciferol (Vitamin D3 (25 Mcg = 1000 Iu)) 2,000 unit PO DAILY@1200 [facility] Last Admin: 12/23/19 10:09 Dose: 2,000 unit Documented by: Cyanocobalamin (Vitamin B-12) 500 mcg PO DAILY@1600 [facility] Dofetilide (Tikosyn) 125 mcg PO Q12H [facility] Last Admin: 12/23/19 04:28 Dose: 125 mcg Documented by: Ferrous Sulfate (Feosol) 325 mg PO DAILY@0400 [facility] Furosemide (Lasix) 40 mg PO DAILY [facility] Gabapentin (Neurontin) 600 mg PO QID@04,10,16,22 [facility] Last Admin: 12/23/19 10:09 Dose: 600 mg Documented by: Ibuprofen (Motrin) 400 mg PO Q6HR PRN PRN Reason: Mild Pain or Fever > 100.5 Levothyroxine Sodium (Synthroid) 150 mcg PO DAILY@0400 [facility] Lidocaine HCl (Lmx 4) 1 applic TOPICAL DAILY PRN PRN Reason: Pain Losartan Potassium (Cozaar) 100 mg PO DAILY [facility] Last Admin: 12/23/19 10:09 Dose: 100 mg Documented by: Magnesium Oxide (Mag-Ox) 400 mg PO DAILY@1000 [facility] Last Admin: 12/23/19 10:09 Dose: 400 mg Documented by: Metoprolol Tartrate (Lopressor) 50 mg PO BID [facility] Last Admin: 12/23/19 08:26 Dose: 50 mg Documented by: Multivitamins (Theragran) 1 each PO DAILY@1600 [facility] Naloxone HCl (Narcan) 0.2 mg IV Q2M PRN PRN Reason: Opioid Reversal Nitroglycerin (Nitrostat) 0.4 mg SUBLINGUAL Q5M PRN PRN Reason: Chest Pain Pantoprazole Sodium (Protonix) 40 mg PO AC-BRKFST [facility] Last Admin: 12/23/19 07:00 Dose: 40 mg Documented by: Spironolactone (Aldactone) 50 mg PO DAILY [facility] Last Admin: 12/23/19 10:10 Dose: 50 mg Documented by: Temazepam (Restoril) 15 mg PO HS PRN PRN Reason: Insomnia Venlafaxine HCl (Effexor Xr) 75 mg PO HS [facility] Objective - Vital Signs Vital signs: Vital Signs Temp 98 F 12/23/19 08:20 Pulse 72 12/23/19 11:24 Resp 16 12/23/19 11:20 BP 105/57 12/23/19 11:20 Pulse Ox 98 12/23/19 11:20 Intake & Output 12/22/19 12/23/19 12/23/19 18:59 06:59 18:59 Intake Total 360 Output Total 750 Balance -750 360 Weight 129.727 kg 129.3 kg Intake: Oral 360 Output: Urine 750 Other: Voiding Method Toilet Toilet # Voids 0 - Exam Gen: This is a 59-year-old female sitting up in the bed sleeping, but arousable, alert and oriented 3, well-developed, well-nourished, obese. Temp is 98F, pulse is 76, respirations are 16, blood pressure is 105/57, oxygen saturation is 98% on 2 L via nasal cannula HEENT: Head is atraumatic, normocephalic. Pupils equal, round. Sclerae is anicteric. Facial puffiness noted around eyes bilaterally NECK: Supple. No JVD. No lymphadenopathy. No thyromegaly. LUNGS: Diminished breath sounds at the bases with a few scattered rhonchi and crackles noted. No intercostal retractions. HEART: S1, S2 are muffled, currently normal sinus rhythm on the monitor ABDOMEN: Soft. Obese. Bowel sounds are present. No masses. No tenderness. EXTREMITIES: Bilateral leg edema noted with slight improvement. No calf tenderness. NEUROLOGICAL: Patient is asleep but arousable, alert and oriented x3. Cranial nerves 2 through 12 are grossly intact. - Labs CBC & Chem 7: 12/23/19 05:41 12/23/19 05:41 Labs: Abnormal Lab Results - Last 24 Hours (Table) 12/22/19 12/22/19 12/23/19 Range/Units 13:49 14:50 05:41 Glucose 107 H 101 H (74-99) mg/dL ALT 40 H (4-34) U/L Triglycerides 157 H (<150) mg/dL Urine Protein Trace H (Negative) Assessment and Plan Assessment: Chest pain for evaluation, rule out unstable angina Shortness of breath for evaluation, rule out cor pulmonale Chronic obstructive pulmonary disease, possibly History of congestive heart failure possibly Gastroesophageal reflux disease Hypertension Hyperlipidemia History of myocardial infarction History of mitral valve prolapse History of degenerative joint disease History of pneumonia history of irregular heartbeat History of appendectomy Hysterectomy History of depression History of PTSD remote history of nicotine dependence Obesity with a body mass index of 41 Full code Recommendations and discussion: Recommend continue current medications, management, and symptomatic treatment. Cardiology and pulmonary consulted and pending. Awaiting 2-D echo. Resume home medications and monitor patient closely on telemetry. PT/OT consult for continued weakness and fatigue. Further recommendations to follow. Due to multiple complex medical issues, prognosis is guarded.
[2019-12-23] MEDS: HYDROcodone/APAP 5-325MG 1 EACH TAB PO PRN (14:32)
[2019-12-23] MEDS ORDERED: NON FORMULARY DRUG (Calcium/Magnesium/Zinc [Calcium-Magnesium-Zinc Tablet] 1 TAB) PO SCH (16:00)
[2019-12-23] MEDS: ASCORBIC ACID 500 MG TAB PO SCH (16:17)
[2019-12-23] MEDS: MULTIVITAMINS, THERA 1 EACH TAB PO SCH (16:17)
[2019-12-23] MEDS: CYANOCOBALAMIN 500 MCG TAB PO SCH (16:17)
[2019-12-23 20:05] VITALS: RESP 18
[2019-12-23] MEDS ORDERED: VENLAFAXINE HCL ER 75 MG CAP PO SCH (21:00)
[2019-12-24] MEDS ORDERED: LEVOTHYROXINE 75 MCG TAB PO SCH (04:00)
[2019-12-24] MEDS ORDERED: FERROUS SULFATE 325 MG TAB PO SCH (04:00)
[2019-12-24] MEDS ORDERED: CALCIUM CARB-VIT D 500MG-200UN 1 EACH TAB PO SCH (04:00)
[2019-12-24] MEDS: ASCORBIC ACID 500 MG TAB PO SCH ×2 (04:36→15:09)
[2019-12-24] MEDS: DOFETILIDE 125 MCG CAP PO SCH ×3 (04:36→15:09)
[2019-12-24] MEDS: GABAPENTIN 300 MG CAP PO SCH ×2 (04:39→15:09)
[2019-12-24] MEDS: PANTOPRAZOLE 40 MG TABLET PO SCH (06:51)
[2019-12-24] MEDS: IPRATROPIUM-ALBUTEROL 3 ML NEB INHALATION SCH ×2 (07:46→12:28)
[2019-12-24] MEDS: CHOLECALCIFEROL 1,000 UNIT TAB PO SCH (08:06)
[2019-12-24] MEDS: SPIRONOLACTONE 25 MG TAB PO SCH (08:07)
[2019-12-24] MEDS: METOPROLOL TARTRATE 50 MG TAB PO SCH (08:07)
[2019-12-24] MEDS: ATORVASTATIN 40 MG TAB PO SCH (08:08)
[2019-12-24] MEDS: APIXABAN 5 MG TAB PO SCH (08:08)
[2019-12-24] MEDS: LOSARTAN 50 MG TAB PO SCH (08:08)
[2019-12-24] MEDS: HYDROcodone/APAP 5-325MG 1 EACH TAB PO PRN (08:11)
[2019-12-24] MEDS: MAGNESIUM OXIDE 400 MG TAB PO SCH (08:12)
[2019-12-24 08:36] LABS: Basophils % (A) 0 %; Eosinophils # (A) 0.1 k/uL (0-0.7); Eosinophils % (A) 1 %; HCT 39.3 % (34.0-46.0); HGB 12.6 gm/dL (11.4-16.0); Lymphocytes # (A) 1.9 k/uL (1.0-4.8); Lymphocytes % (A) 29 %; MCH 30.8 pg (25.0-35.0); MCHC 32.2 g/dL (31.0-37.0); MCV 95.7 fL (80.0-100.0); Mean Platelet Volume 8.9; Monocytes # (A) 0.4 k/uL (0-1.0); Monocytes % (A) 6 %; Neutrophils % (A) 61 %; Platelet Count 194 k/uL (150-450); RDW 13.4 % (11.5-15.5); WBC 6.6 k/uL (3.8-10.6)
[2019-12-24 08:49] LABS: African American GFR (CKD) >90 (>60 ml/min/1.73 sqM); Anion Gap 9 mmol/L; Blood Urea Nitrogen 16 mg/dL (7-17); Calcium 9.3 mg/dL (8.4-10.2); Carbon Dioxide 25 mmol/L (22-30); Chloride 104 mmol/L (98-107); Glucose 104 mg/dL (74-99); Non-African American GFR(CKD) >90 (>60 ml/min/1.73 sqM); Potassium 3.8 mmol/L (3.5-5.1); Sodium 138 mmol/L (137-145)
[2019-12-24] MEDS ORDERED: FUROSEMIDE 40 MG TAB PO SCH (09:00)
--- NOTE | 2019-12-24 10:38 | ECHOF ---
Referral Reason:chf MEASUREMENTS -------- HEIGHT: 177.8 cm WEIGHT: 128.4 kg BP: 127/82 IVSd: 1.5 cm (0.6 - 1.1) LVIDd: 4.8 cm (3.9 - 5.3) LVPWd: 1.8 cm (0.6 - 1.1) IVSs: 1.7 cm LVIDs: 3.3 cm LVPWs: 2.1 cm RVIDd: 3.8 cm (< 3.3) LAESV Index (A-L): 31.20 ml/m Ao Diam: 3.0 cm (2.0 - 3.7) AV Cusp: 2.3 cm (1.5 - 2.6) EPSS: 0.8 cm MV E Vitaliy: 0.72 m/s MV DecT: 277 ms MV A Vitaliy: 0.96 m/s MV E/A Ratio: 0.75 RAP: 5.00 mmHg RVSP: 33.91 mmHg MV EF SLOPE: 104.22 mm/s (70 - 150) MV EXCURSION: 16.07 mm (> 18.000) FINDINGS -------- Sinus rhythm. This was a technically adequate study. The left ventricular size is normal. There is moderate concentric left ventricular hypertrophy. O verall left ventricular systolic function is normal with, an EF between 55 - 60 %. The diastolic fi lling pattern is normal for the age of the patient 10.06. The right ventricle is mild to moderately enlarged. LA is midly dilated 29-33ml/m2. The right atrial size is normal. Interatrial and interventricular septum intact. There is mild aortic valve sclerosis. There is no evidence of aortic regurgitation. There is no e vidence of aortic stenosis. Mild mitral annular calcification present. There is trace mitral regurgitation. Mild tricuspid regurgitation present. There is no evidence of pulmonary hypertension. The right v entricular systolic pressure, as measured by Doppler, is 33.91mmHg. There is no pulmonic regurgitation present. The aortic root size is normal. IVC Not well visulized. There is no pericardial effusion. CONCLUSIONS -------- 1. Sinus rhythm. 2. This was a technically adequate study. 3. The left ventricular size is normal. 4. There is moderate concentric left ventricular hypertrophy. 5. Overall left ventricular systolic function is normal with, an EF between 55 - 60 %. 6. The diastolic filling pattern is normal for the age of the patient 10.06 7. The right ventricle is mild to moderately enlarged. 8. LA is midly dilated 29-33ml/m2. 9. The right atrial size is normal. 10. Interatrial and interventricular septum intact. 11. There is mild aortic valve sclerosis. 12. There is no evidence of aortic regurgitation. 13. There is no evidence of aortic stenosis. 14. Mild mitral annular calcification present. 15. There is trace mitral regurgitation. 16. Mild tricuspid regurgitation present. 17. There is no evidence of pulmonary hypertension. 18. The right ventricular systolic pressure, as measured by Doppler, is 33.91mmHg. 19. There is no pulmonic regurgitation present. 20. The aortic root size is normal. 21. IVC Not well visulized. 22. There is no pericardial effusion. ADULT BASIC EDUCATION MANAGER: Bina Mcfadden RDCS
[2019-12-24 12:36] VITALS: BP 120/76; TEMP 97.8
[2019-12-24 12:41] VITALS: PULSE 72
--- NOTE | 2019-12-24 13:13 | P.PN ---
Subjective Progress Note Date: 12/24/19 This is a 59-year-old female who follows regularly with Dr. Smith in the office. She has history of persistent atrial fibrillation, hypertension, she had also seen Dr. Blancas in the office and was initiated on dofetilide which she continues to be on at this time. Patient also has history of hypertension, hyperlipidemia, GERD, mitral valve prolapse, history of PTSD and depression, she presented to the hospital with symptoms of shortness of breath. Patient was seen and examined this morning, feels well overall, her echocardiogram with Doppler study was performed which revealed a normal left ventricular systolic function. Blood pressure 120/70 with a heart rate in the 70s, 92% on RA. White blood cell count 6.6, hemoglobin 12.6, platelet count 194. Sodium 138, potassium 3.8, BUN 16, creatinine 0.6. Objective - Vital Signs Vital signs: Vital Signs Temp 97.8 F 12/24/19 12:00 Pulse 72 12/24/19 12:40 Resp 18 12/24/19 12:00 BP 120/76 12/24/19 12:00 Pulse Ox 92 L 12/24/19 12:00 Intake & Output 12/23/19 12/24/19 12/24/19 18:59 06:59 18:59 Intake Total 600 480 Output Total 1400 1060 450 Balance -800 -1060 30 Weight 128.6 kg Intake: Oral 600 480 Output: Urine 1400 1060 450 Other: Voiding Method Toilet Toilet Toilet # Voids 2 1 2 - Exam PHYSICAL EXAMINATION: HEENT: Head is atraumatic, normocephalic. Pupils equal, round. Neck is supple. There is no elevated jugular venous pressure. HEART EXAMINATION: R S1 and [id number] CHEST EXAMINATION: Lungs are clear to auscultation and precussion. No chest wall tenderness is noted on palpation or with deep breathing. ABDOMEN: Soft, nontender. Bowel sounds are heard. No organomegaly noted. EXTREMITIES: 2+ peripheral pulses with no evidence of peripheral edema and no calf tenderness noted. NEUROLOGIC patient is awake, alert and oriented -3. - Labs CBC & Chem 7: 12/24/19 07:37 12/24/19 07:37 Labs: Abnormal Lab Results - Last 24 Hours (Table) 12/24/19 Range/Units 07:37 Glucose 104 H (74-99) mg/dL Assessment and Plan Plan: Assessment and plan #1 chest pain, atypical in nature #2 COPD #3 paroxysmal atrial fibrillation, on dofetilide #4 GERD #5 hypertension #6 hyperlipidemia #7 depression and PTSD Plan Echocardiogram with Doppler study revealed a normal left ventricular systolic function, from cardiology's perspective the patient may be able to be discharged home today. Follow-up appointment in the office with Dr. Smith. DNP note has been reviewed, I agree with a documented findings and plan of care. Patient was seen and examined.
--- NOTE | 2019-12-24 14:05 | P.DS ---
Providers Date of admission: 12/24/19 09:04 Expected date of discharge: 12/24/19 Attending physician: Felipa Nina Consults: 12/22/19 15:33 Consult Physician Stat Consulting Provider: Dayna Smith Consult Reason/Comments: chest pain, dyspnea on exertion Do you want consulting provider notified?: Yes [facility] Course: Final diagnosis Chest pain , ruled out unstable angina Shortness of breath, ruled out cor pulmonale Chronic obstructive pulmonary disease Gastroesophageal reflux disease Hypertension Hyperlipidemia History of myocardial infarction History of mitral valve prolapse History of degenerative joint disease History of pneumonia history of paroxysmal atrial fibrillation History of appendectomy Hysterectomy History of depression History of PTSD remote history of nicotine dependence Obesity with a body mass index of 41 Full code Discharge disposition Patient is being discharged in a stable condition with guarded prognosis to home and will follow-up with Dr. Carrion upon discharge. She will also be following up with cardiology Dr. Smith in the outpatient setting. Patient will continue on Lasix 40 mg daily until follow-up with primary care provider. Total time taken is 35 minutes. History of present illness This is a 59-year-old female who was recently admitted with shortness of breath and chest pain along with lower extremity swelling and was being closely monitored. Patient was seen and evaluated by cardiology and was initiated on IV Lasix for diuresis in the ER. Patient was then resumed on oral Lasix at 40 mg daily diuresed well. Patient underwent echo showing overall left ventricular systolic function is normal with an EF between 55 and 60% with no evidence of pulmonary hypertension, trace of mitral regurgitation along with mild tricuspid regurgitation present. Patient will follow-up with Dr. Smith in the outpatient setting. Patient will also continue on tikosyn, spironolactone, losartan, Lopressor, and Eliquis in the outpatient setting. Currently no reports of chest pain, shortness of breath, or palpitations. Patient is afebrile. No reports of nausea or vomiting and patient is tolerating diet. Patient states she feels much better and would like to go home today. Patient does have some mild lower extremity edema noted and instructed to elevate the lower extremities while at rest and also to use compression stockings. Patient will be discharged home today. On exam vital signs are stable. Temp is 97.8F, pulse is 72, respirations are 18, blood pressure is 120/76, oxygen saturation is 92-95% on room air. Cardio S1, S2 are muffled. Respiratory system shows diminished breath sounds at the bases with no wheezing or rhonchi noted. Abdomen is soft and nontender. Nerv ous system shows no focal deficits. Please refer to medication reconciliation sheet for a list of medications. Patient Condition at Discharge: Stable Plan - Discharge Summary Discharge Rx Participant: No New Discharge Prescriptions: New Spironolactone [Aldactone] 50 mg PO DAILY 30 Days #30 tab Losartan [Cozaar] 100 mg PO DAILY 30 Days #30 tab Venlafaxine HCl ER [Effexor XR] 75 mg PO HS #12 cap.er.24h Metoprolol Tartrate [Lopressor] 50 mg PO BID 30 Days #60 tab HYDROcodone/APAP 5-325MG [[place] 5-325] 1 each PO Q6HR PRN #10 tab PRN Reason: Pain Continue Lansoprazole [Prevacid] 30 mg PO BID@0400,1600 Calcium Carbonate/Vitamin D3 [Calcium 600-Vit D3 200 Tablet] 1 tab PO DAILY@0400 Potassium Chloride ER [K-Dur 20] 20 meq PO DAILY@1000 [place]-3 Fatty Acids/Fish Oil [Fish Oil 1,000 mg Softgel] 1 cap PO DAILY@1000 Furosemide [Lasix] 40 mg PO DAILY@1000 Ferrous Sulfate [Feosol] 325 mg PO DAILY@0400 Apixaban [Eliquis] 5 mg PO BID@0400,1600 Gabapentin 600 mg PO QID@04,10,16,22 Atorvastatin [Lipitor] 40 mg PO DAILY@1000 Baclofen [Lioresal] 20 mg PO TID@0400,1000,1600 PRN PRN Reason: Muscle Spasm Calcium/Magnesium/Zinc [Pmqgzxl-Mlbnmgxaq-Sgmd Tablet] 1 tab PO DAILY@1600 Ascorbic Acid [Vitamin C] 500 mg PO BID@0400,1600 Magnesium Oxide [Grady] 500 mg PO DAILY@1000 Cyanocobalamin [Vitamin B-12] 500 mcg PO DAILY@1600 Levothyroxine Sodium [Synthroid] 150 mcg PO DAILY@0400 Multivit-Min/Iron/Folic/Lutein [Centrum Silver Women Tablet] 1 tab PO DAILY@1600 Hyoscyamine Sulfate [Levsin] 0.125 mg PO BID@1000,1600 Dofetilide [Tikosyn] 125 mcg PO BID@0400,1600 Cholecalciferol (Vitamin D3) [Vitamin D3] 2,000 unit PO DAILY@1200 oxyCODONE-APAP 7.5-325MG [Percocet 7.5-325 mg] 1 tab PO TID@0400,1000,1599 Lidocaine HCl [Aspercreme Lidocaine] 1 applic TOPICAL DAILY PRN PRN Reason: Pain Albuterol Inhaler [Ventolin Hfa Inhaler] 2 puff INHALATION RT-Q6H PRN PRN Reason: Shortness Of Breath Discontinued Spironolactone [Aldactone] 25 mg PO DAILY@0400 Venlafaxine HCl ER [Effexor XR] 150 mg PO DAILY@1600 Losartan Potassium [Cozaar] 25 mg PO DAILY@999 Metoprolol Tartrate [Lopressor] 25 mg PO TID@0400,1199,1999 Discharge Medication List Lansoprazole [Prevacid] 30 mg PO BID@0400,1600 01/20/14 [History] Apixaban [Eliquis] 5 mg PO BID@0400,159903/28/16 [History] Atorvastatin [Lipitor] 40 mg PO DAILY@99903/28/16 [History] Calcium Carbonate/Vitamin D3 [Calcium 600-Vit D3 200 Tablet] 1 tab PO DAILY@39903/28/16 [History] Ferrous Sulfate [Feosol] 325 mg PO DAILY@39903/28/16 [History] Furosemide [Lasix] 40 mg PO DAILY@99903/28/16 [History] Gabapentin 600 mg PO QID@04,10,16,22 03/28/16 [History] [place]-3 Fatty Acids/Fish Oil [Fish Oil 1,000 mg Softgel] 1 cap PO DAILY@99903/28/16 [History] Potassium Chloride ER [K-Dur 20] 20 meq PO DAILY@99903/28/16 [History] Baclofen [Lioresal] 20 mg PO TID@0400,1000,1599 PRN 10/03/17 [History] Ascorbic Acid [Vitamin C] 500 mg PO BID@0400,159904/25/19 [History] Calcium/Magnesium/Zinc [Woprmku-Hsdhzqtzt-Wzso Tablet] 1 tab PO DAILY@159904/25/19 [History] Cyanocobalamin [Vitamin B-12] 500 mcg PO DAILY@159904/25/19 [History] Levothyroxine Sodium [Synthroid] 150 mcg PO DAILY@0400 04/25/19 [History] Magnesium Oxide [[place]ady] 500 mg PO DAILY@1000 04/25/19 [History] Cholecalciferol (Vitamin D3) [Vitamin D3] 2,000 unit PO DAILY@1200 05/22/19 [History] Dofetilide [Tikosyn] 125 mcg PO BID@0400,1600 05/22/19 [History] Hyoscyamine Sulfate [Levsin] 0.125 mg PO BID@1000,1600 05/22/19 [History] Multivit-Min/Iron/Folic/Lutein [Centrum Silver Women Tablet] 1 tab PO DAILY@1600 05/22/19 [History] oxyCODONE-APAP 7.5-325MG [Percocet 7.5-325 mg] 1 tab PO TID@0400,1000,1600 07/04/19 [History] Albuterol Inhaler [Ventolin Hfa Inhaler] 2 puff INHALATION RT-Q6H PRN 12/22/19 [History] Lidocaine HCl [Aspercreme Lidocaine] 1 applic TOPICAL DAILY PRN 12/22/19 [History] HYDROcodone/APAP 5-325MG [[place] 5-325] 1 each PO Q6HR PRN #10 tab 12/24/19 [Rx] Losartan [Cozaar] 100 mg PO DAILY 30 Days #30 tab 12/24/19 [Rx] Metoprolol Tartrate [Lopressor] 50 mg PO BID 30 Days #60 tab 12/24/19 [Rx] Spironolactone [Aldactone] 50 mg PO DAILY 30 Days #30 tab 12/24/19 [Rx] Venlafaxine HCl ER [Effexor XR] 75 mg PO HS #12 cap.er.24h 12/24/19 [Rx] Follow up Appointment(s)/Referral(s): Dayna Smith MD [STAFF PHYSICIAN] - 01/23/20 2:45 pm (MONDAY) Karlo Carrion DO [Primary Care Provider] - 12/26/19 9:00 am (MONDAY With Gabby) Patient Instructions/Handouts: Chest Pain (DC) Activity/Diet/Wound Care/Special Instructions: Activity Limited until follow-up Continue current diet Follow-up with primary care provider Follow-up with cardiology in the outpatient setting Elevate the legs while at rest/ use compression stockings Discharge Disposition: HOME SELF-CARE
[2019-12-24] MEDS: CYANOCOBALAMIN 500 MCG TAB PO SCH (15:09)
[2019-12-24] MEDS: MULTIVITAMINS, THERA 1 EACH TAB PO SCH (15:09)
== END 2019-12-24 15:04 | disposition home or self-care (01) | DRG 313 ==
LOC: EC 12:29 → 3SCARD 14:55 → OBSVTOIN 12-24 09:04
PROVIDERS: ADMIT Hospitalist; ATTEND Hospitalist
DX: R07.89 Other chest pain (principal); Z68.41 Body mass index [BMI] 40.0-44.9, adult; I25.2 Old myocardial infarction; I11.0 Hypertensive heart disease with heart failure; I50.9 Heart failure, unspecified; J44.9 Chronic obstructive pulmonary disease, unspecified; I48.0 Paroxysmal atrial fibrillation; E66.9 Obesity, unspecified; E78.5 Hyperlipidemia, unspecified; F32.9 Major depressive disorder, single episode, unspecified; F43.10 Post-traumatic stress disorder, unspecified; I34.1 Nonrheumatic mitral (valve) prolapse; K21.9 Gastro-esophageal reflux disease without esophagitis; M19.90 Unspecified osteoarthritis, unspecified site; Z11.59 Encounter for screening for other viral diseases; Z79.01 Long term (current) use of anticoagulants; Z79.890 Hormone replacement therapy; Z79.899 Other long term (current) drug therapy; Z79.891 Long term (current) use of opiate analgesic; Z90.710 Acquired absence of both cervix and uterus; Z90.49 Acquired absence of other specified parts of digestive tract; Z87.891 Personal history of nicotine dependence; Z87.01 Personal history of pneumonia (recurrent); Z80.1 Family history of malignant neoplasm of trachea, bronchus and lung; Z82.49 Family history of ischemic heart disease and other diseases of the circulatory system; Z80.42 Family history of malignant neoplasm of prostate; Z82.3 Family history of stroke
CPT/HCPCS: 36415; 71046; 80048; 80053; 80061; 81003; 83605; 83735; 83880; 84443; 84484; 85025; 85379; 85610; 85730; 87635; 93005; 93306; 94640; 94760; 96360; 99285

== ENCOUNTER 2019-12-27 11:18 | Emergency (ER) | payer BC ==
[2019-12-27 11:23] VITALS: RESP 18; TEMP 98.1
--- NOTE | 2019-12-27 11:50 | ED ---
Chest Pain HPI - General Chief Complaint: Chest Pain Stated Complaint: Chest Pain Time Seen by Provider: 12/27/19 11:25 Source: patient, RN notes reviewed Mode of arrival: wheelchair Limitations: no limitations - History of Present Illness Initial Comments: This is a 59-year-old female with a recent admission for A. fib also does have a history of gastroesophageal reflux who states about 45 minutes ago she had the episode of tightness around her chest going up her jaw which lasted about 45 minutes and then resolved. She states resolved and seemed to center in her epigastrium. She states this is very similar to previous episodes of gastroesophageal reflux. She states she was taking Tums if she has some but she did not have any. He currently is pain-free asymptomatic she states the pain was 8/10 severity when it came on again does state is identical to her previous reflux episodes. The cough no fevers chills sweats. MD Complaint: chest pain - Related Data Home Medications Medication Instructions Recorded Confirmed Lansoprazole [Prevacid] 30 mg PO BID@0400,159901/20/14 12/22/19 Apixaban [Eliquis] 5 mg PO BID@0400,159903/28/16 12/22/19 Atorvastatin [Lipitor] 40 mg PO DAILY@99903/28/16 12/22/19 Calcium Carbonate/Vitamin D3 1 tab PO DAILY@39903/28/16 12/22/19 [Calcium 600-Vit D3 200 Tablet] Ferrous Sulfate [Feosol] 325 mg PO DAILY@0400 03/28/16 12/22/19 Furosemide [Lasix] 40 mg PO DAILY@99903/28/16 12/22/19 Gabapentin 600 mg PO QID@04,10,16,22 03/28/16 12/22/19 [place]-3 Fatty Acids/Fish Oil [Fish 1 cap PO DAILY@99903/28/16 12/22/19 Oil 1,000 mg Softgel] Potassium Chloride ER [K-Dur 20] 20 meq PO DAILY@99903/28/16 12/22/19 Baclofen [Lioresal] 20 mg PO TID@0400,1000,1600 PRN 10/03/17 12/22/19 Ascorbic Acid [Vitamin C] 500 mg PO BID@0400,1600 04/25/19 12/22/19 Calcium/Magnesium/Zinc 1 tab PO DAILY@1600 04/25/19 12/22/19 [Hwmxiwc-Jroozjpow-Hnhh Tablet] Cyanocobalamin [Vitamin B-12] 500 mcg PO DAILY@1600 04/25/19 12/22/19 Levothyroxine Sodium [Synthroid] 150 mcg PO DAILY@0400 04/25/19 12/22/19 Magnesium Oxide [Grady] 500 mg PO DAILY@1000 04/25/19 12/22/19 Cholecalciferol (Vitamin D3) 2,000 unit PO DAILY@1200 05/22/19 12/22/19 [Vitamin D3] Dofetilide [Tikosyn] 125 mcg PO BID@0400,1600 05/22/19 12/22/19 Hyoscyamine Sulfate [Levsin] 0.125 mg PO BID@1000,1600 05/22/19 12/22/19 Multivit-Min/Iron/Folic/Lutein 1 tab PO DAILY@1600 05/22/19 12/22/19 [Centrum Silver Women Tablet] oxyCODONE-APAP 7.5-325MG [Percocet 1 tab PO TID@0400,1000,1600 07/04/19 12/22/19 7.5-325 mg] Albuterol Inhaler [Ventolin Hfa 2 puff INHALATION RT-Q6H PRN 12/22/19 12/22/19 Inhaler] Lidocaine HCl [Aspercreme 1 applic TOPICAL DAILY PRN 12/22/19 12/22/19 Lidocaine] Previous Rx's Medication Instructions Recorded HYDROcodone/APAP 5-325MG [Chemult 1 each PO Q6HR PRN #10 tab 12/24/19 5-325] Losartan [Cozaar] 100 mg PO DAILY 30 Days #30 tab 12/24/19 Metoprolol Tartrate [Lopressor] 50 mg PO BID 30 Days #60 tab 12/24/19 Spironolactone [Aldactone] 50 mg PO DAILY 30 Days #30 tab 12/24/19 Venlafaxine HCl ER [Effexor XR] 75 mg PO HS #12 cap.er.24h 12/24/19 Allergies Allergy/AdvReac Type Severity Reaction Status Date / Time No Known Allergies Allergy Verified 12/22/19 12:35 Review of Systems ROS Statement: Those systems with pertinent positive or pertinent negative responses have been documented in the HPI. ROS Other: All systems not noted in ROS Statement are negative. EKG Findings - EKG Results: EKG: interpreted by ERMD, sinus rhythm (Sinus bradycardia rate of 51. Interval 150 to QRS 108 QT since QTC 446/411 nonspecific T-wave configuration) Past Medical History Past Medical History: Chest Pain / Angina, Heart Failure, GERD/Reflux, Hyperlipidemia, Hypertension, Myocardial Infarction ([place]), Mitral Valve Prolapse (MVP), Neurologic Disorder, Osteoarthritis (OA), Pneumonia Additional Past Medical History / Comment(s): enlarged heart, irrregular heart beat-afib, DDD,HERNIATED DISC, lesions on [id number] in June 2019, IBS, vertigo Last Myocardial Infarction Date:: several years ago History of Any Multi-Drug Resistant Organisms: None Reported Past Surgical History: Appendectomy, Heart Catheterization, Hysterectomy, Tonsillectomy Additional Past Surgical History / Comment(s): LASER SURG TO BACK, heart cath no stents 3-4yrs ago Past Anesthesia/Blood Transfusion Reactions: No Reported Reaction Past Psychological History: Depression, PTSD Smoking Status: Former smoker Past Alcohol Use History: None Reported Past Drug Use History: None Reported - Past Family History Father Family Medical History: Cancer Additional Family Medical History / Comment(s): PROSTATE AND LUNG CANCER Mother Family Medical History: CVA/TIA, Hypertension General Exam - General Exam Comments Initial Comments: This a well-developed well-nourished awake alert oriented 3 female Limitations: no limitations General appearance: alert, in no apparent distress Head exam: Present: atraumatic, normocephalic, normal inspection Eye exam: Present: normal appearance, PERRL, EOMI. Absent: scleral icterus, conjunctival injection, periorbital swelling ENT exam: Present: normal exam, mucous membranes moist Neck exam: Present: normal inspection. Absent: tenderness, meningismus, lymphadenopathy Respiratory exam: Present: normal lung sounds bilaterally. Absent: respiratory distress, wheezes, rales, rhonchi, stridor Cardiovascular Exam: Present: normal rhythm, bradycardia, normal heart sounds. Absent: systolic murmur, diastolic murmur, rubs, gallop, clicks GI/Abdominal exam: Present: soft, normal bowel sounds. Absent: distended, tenderness, guarding, rebound, rigid Extremities exam: Present: normal inspection, full ROM, normal capillary refill. Absent: tenderness, pedal edema, joint swelling, calf tenderness Back exam: Present: normal inspection Neurological exam: Present: alert, oriented X3, CN II-XII intact Psychiatric exam: Present: normal affect, normal mood Skin exam: Present: warm, dry, intact, normal color. Absent: rash Course Vital Signs 12/27/19 11:21 Temperature 98.1 F Pulse Rate 59 L Respiratory 18 Rate Blood Pressure 137/87 O2 Sat by Pulse 99 Oximetry Chest Pain MDM - MDM Patient has had no further symptoms while in emergency department she is convinced that this is secondary to her reflux. X-ray was unremarkable for acute processes. After lengthy discussion with the patient she would like to go home she will follow-up with her doctor as planned after repeat questioning patient is convinced this is very similar to her previous episodes of reflux and no other type of presentation. Disposition Clinical Impression: Gastroesophageal reflux, Acute non-ST elevation myocardial infarction (NSTEMI), Atypical chest pain Disposition: HOME SELF-CARE Condition: Good Instructions (If sedation given, give patient instructions): Chest Pain (ED), Gastroesophageal Reflux Disease in Children (ED) Is patient prescribed a controlled substance at d/c from ED?: No Referrals: Karlo Carrion DO [Primary Care Provider] - 1-2 days
[2019-12-27 12:16] LABS: Basophils % (A) 0 %; Eosinophils # (A) 0.1 k/uL (0-0.7); Eosinophils % (A) 2 %; HCT 41.5 % (34.0-46.0); HGB 13.8 gm/dL (11.4-16.0); Lymphocytes # (A) 2.7 k/uL (1.0-4.8); Lymphocytes % (A) 33 %; MCH 31.4 pg (25.0-35.0); MCHC 33.2 g/dL (31.0-37.0); MCV 94.6 fL (80.0-100.0); Mean Platelet Volume 9.4; Monocytes # (A) 0.5 k/uL (0-1.0); Monocytes % (A) 6 %; Neutrophils # (A) 4.5 k/uL (1.3-7.7); Neutrophils % (A) 56 %; Platelet Count 245 k/uL (150-450); RBC 4.39 m/uL (3.80-5.40); RDW 13.6 % (11.5-15.5); WBC 8.1 k/uL (3.8-10.6)
[2019-12-27 12:22] LABS: ALT 36 U/L (4-34); AST 29 U/L (14-36); African American GFR (CKD) >90 (>60 ml/min/1.73 sqM); Albumin 4.4 g/dL (3.5-5.0); Alkaline Phosphatase 126 U/L (38-126); Anion Gap 9 mmol/L; Blood Urea Nitrogen 11 mg/dL (7-17); Carbon Dioxide 27 mmol/L (22-30); Chloride 103 mmol/L (98-107); Glucose 103 mg/dL (74-99); Non-African American GFR(CKD) 86 (>60 ml/min/1.73 sqM); Potassium 4.1 mmol/L (3.5-5.1); Sodium 139 mmol/L (137-145); Total Bilirubin 0.8 mg/dL (0.2-1.3); Total Protein 6.9 g/dL (6.3-8.2)
[2019-12-27 12:23] LABS: Partial Thromboplastin Time 25.1 sec (22.0-30.0); Prothrombin Time 10.3 sec (9.0-12.0)
--- NOTE | 2019-12-27 12:41 | XR ---
EXAMINATION TYPE: XR chest 2V DATE OF EXAM: 12/27/2019 COMPARISON: 12/22/2019 HISTORY: 59-year-old female with chest pain TECHNIQUE: PA and lateral views FINDINGS: The cardiomediastinal silhouette, aorta, and pulmonary vasculature are within normal limits. Lungs an d pleural spaces are clear. IMPRESSION: No acute cardiopulmonary process.
[2019-12-27 13:45] VITALS: BP 121/76; PULSE 56
== END 2019-12-27 14:02 | disposition home or self-care (01) ==
LOC: EC 11:18
DX: I21.4 Non-ST elevation (NSTEMI) myocardial infarction (principal); K21.9 Gastro-esophageal reflux disease without esophagitis; I11.0 Hypertensive heart disease with heart failure; I50.9 Heart failure, unspecified; I48.91 Unspecified atrial fibrillation; I25.2 Old myocardial infarction; E78.5 Hyperlipidemia, unspecified; Z79.01 Long term (current) use of anticoagulants; Z79.899 Other long term (current) drug therapy; Z79.890 Hormone replacement therapy; Z87.891 Personal history of nicotine dependence
CPT/HCPCS: 36415; 71046; 80053; 83735; 84484; 85025; 85610; 85730; 93005; 99285

== ENCOUNTER 2020-02-17 10:39 | Day surgery (SDC) | payer BC ==
[2020-02-07 10:07] VITALS: BMI 40.8
[~2020-02-17 10:39] MED LIST: LACTATED RINGERS 1,000 ML IV SCH; LIDOCAINE 1% (10MG/ML) FOR IV START INTRADERMA PRN
[2020-02-17 10:57] VITALS: RESP 16; TEMP 96.6
[2020-02-17] MEDS ORDERED: fentaNYL (PF) 50 MCG/ML 2 ML AMP ONE (11:26)
[2020-02-17] MEDS ORDERED: MIDAZOLAM 2 MG/2 ML VIAL ONE (11:26)
[2020-02-17] MEDS ORDERED: PROPOFOL 10 MG/ML 20 ML VIAL IV ONE (11:26)
--- NOTE | 2020-02-17 11:54 | P.PCN ---
Date of Procedure: 02/17/20 Description of Procedure: BRIEF HISTORY: Patient is a 59-year-old female with a known history of GERD presents for outpatient esophagogastroduodenoscopy for evaluation of GERD and heartburn. Patient currently on PPI therapy. Denies any dysphagia or odynophagia. No nausea or vomiting. PROCEDURE PERFORMED: Esophagogastroduodenoscopy with biopsy. PREOPERATIVE DIAGNOSIS: GERD, reflux. ESTIMATED BLOOD LOSS: Minimal. IV sedation per anesthesia. PROCEDURE: After informed consent was obtained, the patient was brought into the endoscopy unit. IV sedation was administered by Anesthesia under continuous monitoring. Initially the Olympus GIF-190 video endoscope was inserted into the mouth. Esophagus intubated without any difficulty. It was gradually advanced into the stomach and duodenum and carefully examined. The bulb and the second part of the duodenum appeared normal, with biopsies taken. The scope at this time was withdrawn to the stomach, adequately insufflated with air, and upon careful examination, mucosa of the antrum, body, cardia and the fundus appeared normal, except for some mild scattered erythema in the antrum and body suggestive of mild gastritis with biopsies taken. The scope was then withdrawn into the esophagus. The GE junction was located at 39 cm from the incisors, with biopsies taken to rule out reflux esophagitis. The esophagus appeared normal. There were no erosions or ulcerations seen and the patient tolerated the procedure well. IMPRESSION: 1. Mild gastritis antrum body, biopsied. 2. Biopsies of the GE junction and duodenum. RECOMMENDATIONS: The findings of this examination were discussed with the patient. Okay to resume diet. Okay to resume medications including Eliquis. Await pathology from biopsies. Continue PPI therapy.
[2020-02-17 11:59] VITALS: BP 97/64; PULSE 61
== END 2020-02-17 12:42 | disposition home or self-care (01) ==
LOC: ORWHC2ENDO 10:39
PROVIDERS: ATTEND Internal Medicine
DX: K29.50 Unspecified chronic gastritis without bleeding (principal); K21.9 Gastro-esophageal reflux disease without esophagitis; I50.9 Heart failure, unspecified; I48.91 Unspecified atrial fibrillation; E78.5 Hyperlipidemia, unspecified; E07.9 Disorder of thyroid, unspecified; Z79.890 Hormone replacement therapy; Z79.01 Long term (current) use of anticoagulants; Z79.899 Other long term (current) drug therapy; Z90.710 Acquired absence of both cervix and uterus; Z90.49 Acquired absence of other specified parts of digestive tract; Z90.89 Acquired absence of other organs; Z87.891 Personal history of nicotine dependence; Z80.42 Family history of malignant neoplasm of prostate; Z80.1 Family history of malignant neoplasm of trachea, bronchus and lung
CPT/HCPCS: 88305; 43239; J2250; J3010; J2704

== ENCOUNTER 2020-03-09 05:33 | Inpatient (IN) | payer BC ==
[2020-03-09] MEDS ORDERED: ACETAMINOPHEN TAB 325 MG TAB PO STA (05:46)
[2020-03-09 06:05] LABS: Basophils % (A) 0 %; Eosinophils # (A) 0.1 k/uL (0-0.7); Eosinophils % (A) 1 %; HCT 39.4 % (34.0-46.0); HGB 13.1 gm/dL (11.4-16.0); Lymphocytes # (A) 0.8 k/uL (1.0-4.8); Lymphocytes % (A) 7 %; MCH 30.9 pg (25.0-35.0); MCHC 33.3 g/dL (31.0-37.0); Mean Platelet Volume 8.6; Monocytes # (A) 0.9 k/uL (0-1.0); Monocytes % (A) 8 %; Neutrophils # (A) 9.7 k/uL (1.3-7.7); Neutrophils % (A) 83 %; Platelet Count 174 k/uL (150-450); RBC 4.25 m/uL (3.80-5.40); RDW 13.5 % (11.5-15.5); WBC 11.8 k/uL (3.8-10.6)
[2020-03-09 06:08] LABS: MCV 92.8 fL (80.0-100.0)
[2020-03-09 06:11] LABS: Partial Thromboplastin Time 25.8 sec (22.0-30.0); Prothrombin Time 10.6 sec (9.0-12.0)
--- NOTE | 2020-03-09 06:15 | ED ---
Fever HPI - General Source: patient, EMS Mode of arrival: EMS Limitations: no limitations <Irene Navarrete - Last Filed: 03/09/20 08:17> <Loren Finn - Last Filed: 03/12/20 02:27> - General Stated Complaint: Abdominal Pain Time Seen by Provider: 03/09/20 05:37 - History of Present Illness Initial Comments: Arielle is a 59-year-old female with multiple medical comorbidities, chronic pain who presents the ER today for evaluation of right lower quadrant abdominal pain that resolved prior to arrival and associated fever. Patient reports about 2 weeks ago she passed kidney stone she didn't seek any care in the emergency department that time because this is chronic thing for her. She states she's been doing well since then. She states that tonight she developed severe pain in her right lower quadrant can get the pain under control which prompted her call EMS for transport to the hospital. She had associated nausea without vo miting. No diarrhea or constipation. She does have a history of diverticulitis. She is status post hysterectomy with bilateral for ectomy, as well as status post appendectomy. Of note patient has been in contact with multiple people including people been traveling [place] have been very high risk areas for COVID. (Irene Navarrete) - Related Data Home Medications Medication Instructions Recorded Confirmed Lansoprazole [Prevacid] 30 mg PO BID@0400,1600 01/20/14 03/09/20 Apixaban [Eliquis] 5 mg PO BID@0400,1600 03/28/16 03/09/20 Atorvastatin [Lipitor] 40 mg PO DAILY@1000 03/28/16 03/09/20 Calcium Carbonate/Vitamin D3 1 tab PO DAILY@39903/28/16 03/09/20 [Calcium 600-Vit D3 200 Tablet] Ferrous Sulfate [Feosol] 325 mg PO DAILY@39903/28/16 03/09/20 Furosemide [Lasix] 40 mg PO DAILY@39903/28/16 03/09/20 Gabapentin 600 mg PO QID@04,10,16,22 03/28/16 03/09/20 [place]-3 Fatty Acids/Fish Oil [Fish 1 cap PO DAILY@1000 03/28/16 03/09/20 Oil 1,000 mg Softgel] Baclofen [Lioresal] 20 mg PO TID@0400,1000,1599 PRN 10/03/17 03/09/20 Ascorbic Acid [Vitamin C] 500 mg PO BID@0400,159904/25/19 03/09/20 Calcium/Magnesium/Zinc 1 tab PO DAILY@159904/25/19 03/09/20 [Lymbgmu-Ebdytexsm-Ldwj Tablet] Cyanocobalamin [Vitamin B-12] 500 mcg PO DAILY@159904/25/19 03/09/20 Levothyroxine Sodium [Synthroid] 150 mcg PO DAILY@39904/25/19 03/09/20 Magnesium Oxide [Grady] 500 mg PO DAILY@99904/25/19 03/09/20 Cholecalciferol (Vitamin D3) 2,000 unit PO DAILY@99905/22/19 03/09/20 [Vitamin D3] Dofetilide [Tikosyn] 125 mcg PO BID@0400,159905/22/19 03/09/20 Multivit-Min/Iron/Folic/Lutein 1 tab PO DAILY@159905/22/19 03/09/20 [Centrum Silver Women Tablet] Albuterol Inhaler [Ventolin Hfa 2 puff INHALATION RT-Q6H PRN 12/22/19 03/09/20 Inhaler] Fluticasone Nasal [place] [Flonase 1 spray EA NOSTRIL 02/06/20 03/09/20 Nasal [place]] Metoprolol Tartrate [Lopressor] 50 mg PO BID@0400,159902/06/20 03/09/20 Omeprazole Magnesium [PriLOSEC OTC] 20 mg PO DAILY@39902/06/20 03/09/20 Potassium Chloride [K-Tab ER] 20 meq PO DAILY@99902/06/20 03/09/20 Spironolactone [Aldactone] 50 mg PO DAILY@99902/06/20 03/09/20 oxyCODONE HCL/ACETAMINOPHEN 1 tab PO TID@0400,1000,159902/06/20 03/09/20 [Percocet 7.5-325 mg] Losartan Potassium 100 mg PO DAILY@99903/09/20 03/09/20 Allergies Allergy/AdvReac Type Severity Reaction Status Date / Time No Known Allergies Allergy Verified 03/09/20 08:42 Review of Systems ROS Other: All systems not noted in ROS Statement are negative. <Irene Navarrete P - Last Filed: 03/09/20 08:17> ROS Other: All systems not noted in ROS Statement are negative. <Morena Finnah Anthony - Last Filed: 03/12/20 02:27> ROS Statement: Those systems with pertinent positive or pertinent negative responses have been documented in the HPI. Past Medical History Past Medical History: Atrial Fibrillation, Chest Pain / Angina, Heart Failure, COPD, GERD/Reflux, Hyperlipidemia, Hypertension, Memory Impairment, Myocardial Infarction ([place]), Mitral Valve Prolapse (MVP), Musculoskeletal Disorder, Neurologic Disorder, Osteoarthritis ([place]), Pneumonia, Sleep Apnea/CPAP/BIPAP, Thyroid Disorder Additional Past Medical History / Comment(s): "Current CHF, wearing heart monitor." Enlarged heart, irrregular heart beat-Afib, DDD, HERNIATED DISC, lesions on brain - Multiple Sclerosis, IBS, Vertigo, Emphysema. Rectal bleeding X last 2 years. Hx Kidney stones. Gallstones currently. 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 CPAP use. Hypothyroid. Chronic back pain. Last Myocardial Infarction Date:: several years ago History of Any Multi-Drug Resistant Organisms: None Reported Past Surgical History: Appendectomy, Heart Catheterization, Hysterectomy, Tonsillectomy Additional Past Surgical History / Comment(s): LASER SURG TO BACK, heart cath no stents 3-4, colonoscopy, left eye surgery. Past Anesthesia/Blood Transfusion Reactions: Motion Sickness Past Psychological History: Anxiety, PTSD Smoking Status: Former smoker Past Alcohol Use History: None Reported Past Drug Use History: None Reported - Past Family History Father Family Medical History: Cancer Additional Family Medical History / Comment(s): PROSTATE AND LUNG CANCER. Mother Family Medical History: CVA/TIA, Hypertension <Irene Navarrete P - Last Filed: 03/09/20 08:17> General Exam Limitations: no limitations <Irene Navarrete P - Last Filed: 03/09/20 08:17> - General Exam Comments Initial Comments: Physical Exam GENERAL: Patient is well-developed and well-nourished. Patient is hot to the touch skin is diaphoretic HENT: Normocephalic, Atraumatic. EYES: PERRL, EOMI PULMONARY: Unlabored respirations. No audible rales rhonchi or wheezing was noted. CARDIOVASCULAR: There is a regular rate and rhythm without any murmurs gallops or rubs. ABDOMEN: Soft and nontender with normal bowel sounds. Normal tenderness to deep palpation in the right lower quadrant SKIN: Skin is clear with no lesions or rashes and otherwise unremarkable. : Deferred NEUROLOGIC: Patient is alert and oriented x3. Moving all extremities spontaneously MUSCULOSKELETAL: Normal extremities with adequate strength and full range of motion. No calf tenderness. PSYCHIATRIC: Normal psychiatric evaluation. (Irene Navarrete) Course Vital Signs 03/09/20 03/09/20 03/09/20 05:45 05:52 06:03 Temperature 102.9 F H 100.3 F H 102.7 F H Pulse Rate 84 86 87 Respiratory 18 22 18 Rate Blood Pressure 175/83 169/83 159/81 O2 Sat by Pulse 91 L 91 L 93 L Oximetry 03/09/20 03/09/20 03/09/20 06:55 07:50 09:06 Temperature 102.7 F H 99.6 F Pulse Rate 72 66 63 Respiratory 18 18 18 Rate Blood Pressure 124/62 113/64 101/56 O2 Sat by Pulse 96 95 94 L Oximetry Medical Decision Making - Lab Data Result diagrams: 03/09/20 05:45 03/09/20 05:51 - EKG Data -: EKG Interpreted by Me <Irene Navarrete - Last Filed: 03/09/20 08:17> - Lab Data Result diagrams: 03/10/20 05:45 03/10/20 05:45 <Loren Finn - Last Filed: 03/12/20 02:27> - Medical Decision Making Patient was seen and evaluated, history is obtained from patient History and physical exam reveals a febrile patient with no focal findings A septic workup initiated (Irene Navarrete) I evaluated the patient myself. I did review her labs which demonstrates a white count of 11.8. Urinalysis is positive for 39 red blood cells, 15 white blood cells and few bacteria. Patient has already covered with Rocephin. CT of the patient's abdomen and pelvis is demonstrating haziness of the right kidney, moderate right hydroureter and perinephric and periureteral inflammatory stranding. Patient is reevaluated. Blood pressures remained mildly low the patient continues to be febrile. I did recommend hospital admission. I did discuss case with Dr. Cortes. accepted hospital admission. Patient is currently awaiting a bed on the floor (Loren Finn) - Lab Data Lab Results 03/09/20 03/09/20 03/09/20 Range/Units 05:45 05:51 05:51 WBC 11.8 H (3.8-10.6) k/uL RBC 4.25 (3.80-5.40) m/uL Hgb 13.1 (11.4-16.0) gm/dL Hct 39.4 (34.0-46.0) % MCV 92.8 D (80.0-100.0) fL MCH 30.9 (25.0-35.0) pg MCHC 33.3 (31.0-37.0) g/dL RDW 13.5 (11.5-15.5) % Plt Count 174 (150-450) k/uL Neutrophils % 83 % Lymphocytes % 7 % Monocytes % 8 % Eosinophils % 1 % Basophils % 0 % Neutrophils # 9.7 H (1.3-7.7) k/uL Lymphocytes # 0.8 L (1.0-4.8) k/uL Monocytes # 0.9 (0-1.0) k/uL Eosinophils # 0.1 (0-0.7) k/uL Basophils # 0.0 (0-0.2) k/uL PT 10.6 (9.0-12.0) sec INR 1.0 (<1.2) APTT 25.8 (22.0-30.0) sec Sodium 135 L (137-145) mmol/L Potassium 4.0 (3.5-5.1) mmol/L Chloride 100 (98-107) mmol/L Carbon Dioxide 26 (22-30) mmol/L Anion Gap 9 mmol/L BUN 21 H (7-17) mg/dL Creatinine 0.78 (0.52-1.04) mg/dL Est GFR (CKD-EPI)AfAm >90 (>60 ml/min/1.73 sqM) Est GFR (CKD-EPI)NonAf 83 (>60 ml/min/1.73 sqM) Glucose 130 H (74-99) mg/dL Plasma Lactic Acid Kalpesh (0.7-2.0) mmol/L Calcium 9.3 (8.4-10.2) mg/dL Total Bilirubin 0.7 (0.2-1.3) mg/dL AST 26 (14-36) U/L ALT 27 (4-34) U/L Alkaline Phosphatase 109 (38-126) U/L Troponin I (0.000-0.034) ng/mL Total Protein 6.2 L (6.3-8.2) g/dL Albumin 4.0 (3.5-5.0) g/dL Urine Color Urine Appearance (Clear) Urine pH (5.0-8.0) Ur Specific [place] (1.001-1.035) Urine Protein (Negative) Urine Glucose (UA) (Negative) Urine Ketones (Negative) Urine Blood (Negative) Urine Nitrite (Negative) Urine Bilirubin (Negative) Urine Urobilinogen (<2.0) mg/dL Ur Leukocyte Esterase (Negative) Urine RBC (0-5) /hpf Urine WBC (0-5) /hpf Ur Squamous Epith Cells (0-4) /hpf Urine Bacteria (None) /hpf Urine Mucus (None) /hpf Coronavirus (PCR) (Not Detected) 03/09/20 03/09/20 03/09/20 Range/Units 05:51 05:51 06:54 WBC (3.8-10.6) k/uL RBC (3.80-5.40) m/uL Hgb (11.4-16.0) gm/dL Hct (34.0-46.0) % MCV (80.0-100.0) fL MCH (25.0-35.0) pg MCHC (31.0-37.0) g/dL RDW (11.5-15.5) % Plt Count (150-450) k/uL Neutrophils % % Lymphocytes % % Monocytes % % Eosinophils % % Basophils % % Neutrophils # (1.3-7.7) k/uL Lymphocytes # (1.0-4.8) k/uL Monocytes # (0-1.0) k/uL Eosinophils # (0-0.7) k/uL Basophils # (0-0.2) k/uL PT (9.0-12.0) sec INR (<1.2) APTT (22.0-30.0) sec Sodium (137-145) mmol/L Potassium (3.5-5.1) mmol/L Chloride (98-107) mmol/L Carbon Dioxide (22-30) mmol/L Anion Gap mmol/L BUN (7-17) mg/dL Creatinine (0.52-1.04) mg/dL Est GFR (CKD-EPI)AfAm (>60 ml/min/1.73 sqM) Est GFR (CKD-EPI)NonAf (>60 ml/min/1.73 sqM) Glucose (74-99) mg/dL Plasma Lactic Acid Kalpesh 1.4 (0.7-2.0) mmol/L Calcium (8.4-10.2) mg/dL Total Bilirubin (0.2-1.3) mg/dL AST (14-36) U/L ALT (4-34) U/L Alkaline Phosphatase (38-126) U/L Troponin I <0.012 (0.000-0.034) ng/mL Total Protein (6.3-8.2) g/dL Albumin (3.5-5.0) g/dL Urine Color Light Yellow Urine Appearance Cloudy H (Clear) Urine pH 8.0 (5.0-8.0) Ur Specific [place] 1.013 (1.001-1.035) Urine Protein 1+ H (Negative) Urine Glucose (UA) Negative (Negative) Urine Ketones Negative (Negative) Urine Blood Trace H (Negative) Urine Nitrite Negative (Negative) Urine Bilirubin Negative (Negative) Urine Urobilinogen <2.0 (<2.0) mg/dL Ur Leukocyte Esterase Trace H (Negative) Urine RBC 39 H (0-5) /hpf Urine WBC 15 H (0-5) /hpf Ur Squamous Epith Cells 4 (0-4) /hpf Urine Bacteria Few H (None) /hpf Urine Mucus Rare H (None) /hpf Coronavirus (PCR) (Not Detected) 03/09/20 Range/Units 09:12 WBC (3.8-10.6) k/uL RBC (3.80-5.40) m/uL Hgb (11.4-16.0) gm/dL Hct (34.0-46.0) % MCV (80.0-100.0) fL MCH (25.0-35.0) pg MCHC (31.0-37.0) g/dL RDW (11.5-15.5) % Plt Count (150-450) k/uL Neutrophils % % Lymphocytes % % Monocytes % % Eosinophils % % Basophils % % Neutrophils # (1.3-7.7) k/uL Lymphocytes # (1.0-4.8) k/uL Monocytes # (0-1.0) k/uL Eosinophils # (0-0.7) k/uL Basophils # (0-0.2) k/uL PT (9.0-12.0) sec INR (<1.2) APTT (22.0-30.0) sec Sodium (137-145) mmol/L Potassium (3.5-5.1) mmol/L Chloride (98-107) mmol/L Carbon Dioxide (22-30) mmol/L Anion Gap mmol/L BUN (7-17) mg/dL Creatinine (0.52-1.04) mg/dL Est GFR (CKD-EPI)AfAm (>60 ml/min/1.73 sqM) Est GFR (CKD-EPI)NonAf (>60 ml/min/1.73 sqM) Glucose (74-99) mg/dL Plasma Lactic Acid Kalpesh (0.7-2.0) mmol/L Calcium (8.4-10.2) mg/dL Total Bilirubin (0.2-1.3) mg/dL AST (14-36) U/L ALT (4-34) U/L Alkaline Phosphatase (38-126) U/L Troponin I (0.000-0.034) ng/mL Total Protein (6.3-8.2) g/dL Albumin (3.5-5.0) g/dL Urine Color Urine Appearance (Clear) Urine pH (5.0-8.0) Ur Specific [place] (1.001-1.035) Urine Protein (Negative) Urine Glucose (UA) (Negative) Urine Ketones (Negative) Urine Blood (Negative) Urine Nitrite (Negative) Urine Bilirubin (Negative) Urine Urobilinogen (<2.0) mg/dL Ur Leukocyte Esterase (Negative) Urine RBC (0-5) /hpf Urine WBC (0-5) /hpf Ur Squamous Epith Cells (0-4) /hpf Urine Bacteria (None) /hpf Urine Mucus (None) /hpf Coronavirus (PCR) Not Detected (Not Detected) - EKG Data EKG Comments: EKG was obtained as part septic workup, EKG obtained at 5:41 AM, rate is 84 rhythm is sinus with leftward deviation, MT 150, curettes 180, QTc is [address] elevations or depressions no evidence of acute ischemia or infarction (Irene Navarrete) Disposition <Irene Navarrete - Last Filed: 03/09/20 08:17> Is patient prescribed a controlled substance at d/c from ED?: No Decision to Admit Reason: Admit from EC Decision Date: 03/09/20 Decision Time: 09:32 <Loren Finn - Last Filed: 03/12/20 02:27> Clinical Impression: Fever, Pyelonephritis, Hydroureter Disposition: ADMITTED IP TO THIS HOSP Condition: Stable
[2020-03-09 06:33] LABS: ALT 27 U/L (4-34); AST 26 U/L (14-36); African American GFR (CKD) >90 (>60 ml/min/1.73 sqM); Alkaline Phosphatase 109 U/L (38-126); Anion Gap 9 mmol/L; Blood Urea Nitrogen 21 mg/dL (7-17); Calcium 9.3 mg/dL (8.4-10.2); Carbon Dioxide 26 mmol/L (22-30); Chloride 100 mmol/L (98-107); Glucose 130 mg/dL (74-99); Non-African American GFR(CKD) 83 (>60 ml/min/1.73 sqM); Sodium 135 mmol/L (137-145); Total Bilirubin 0.7 mg/dL (0.2-1.3); Total Protein 6.2 g/dL (6.3-8.2)
--- NOTE | 2020-03-09 06:42 | XR ---
EXAMINATION TYPE: XR chest 1V portable DATE OF EXAM: 03/09/2020 COMPARISON: Chest x-ray December 27, 2019. HISTORY: Shortness of breath and fever. TECHNIQUE: Single AP portable frontal upright view of the chest is obtained. FINDINGS: There is chronic parenchymal changes bilaterally without suspicious new focal air space op acity, pleural effusion, or pneumothorax seen. The cardiac silhouette size remains within normal peters its. The osseous structures are intact. IMPRESSION: Chronic changes without acute pulmonary process.
[2020-03-09 07:30] LABS: Appearance,Urine Cloudy (Clear); Bacteria,Urine Few /hpf; Bilirubin,Urine Negative (Negative); Blood,Urine Trace (Negative); Color,Urine Light Yellow; Glucose,Urine (UA) Negative (Negative); Ketones,Urine Negative (Negative); Leukocyte Esterase,Urine Trace (Negative); Mucus,Urine Rare /hpf; Nitrite,Urine Negative (Negative); Protein,Urine 1+ (Negative); RBC,Urine 39 /hpf (0-5); Specific Gravity,Urine 1.013 (1.001-1.035); Squamous Epithelial Cell,Urine 4 /hpf (0-4); Urobilinogen,Urine <2.0 mg/dL (<2.0); WBC,Urine 15 /hpf (0-5)
[2020-03-09] MEDS ORDERED: IBUPROFEN 600 MG TAB PO STA (07:54)
[2020-03-09] MEDS ORDERED: cefTRIAXone IN SWFI 1,000 MG/10 ML SYRINGE IVP STA (08:11)
--- NOTE | 2020-03-09 09:09 | CT ---
EXAMINATION TYPE: CT abdomen pelvis w con DATE OF EXAM: 03/09/2020 COMPARISON: CT abdomen pelvis 01/21/2019 HISTORY: Left lower quadrant pain with fever CT DLP: 2134.9 mGycm Automated exposure control for dose reduction was used. TECHNIQUE: Helical acquisition of images was performed from the lung bases through the pelvis. CONTRAST: Performed without Oral Contrast and with IV Contrast, patient injected with 100 mL of Isovue 300. FINDINGS: LUNG BASES: Bibasilar atelectasis. No pleural or pericardial effusion. LIVER: Normal. BILIARY SYSTEM: Cholelithiasis. No intrahepatic or extrahepatic biliary ductal dilatation. PANCREAS: Normal. SPLEEN: Normal. ADRENALS: Adrenal glands normal. There is a 7 mm nodule of the left adrenal gland with Hounsfield uni ts of 8, most consistent with benign adrenal adenoma. KIDNEYS: Right extrarenal pelvis. Fullness of the right renal collecting system. There is moderate ri ght hydroureter diffusely. There is right perinephric and periureteral inflammatory stranding. No lef t hydronephrosis. No evidence of urolithiasis. BOWEL: No evidence of obstruction or thickening. There is colonic diverticulosis. No acute diverticu litis. Patient appears status post appendectomy. PERITONEUM: No free air is visualized. No free fluid. ADENOPATHY: No lymphadenopathy. PELVIS: Urinary bladder is well-distended with no wall thickening or inflammation. Tiny internal focu s of air. Status post hysterectomy and oophorectomy. VASCULATURE: No abdominal aortic aneurysm. MUSCULOSKELETAL: Degenerative changes of the spine. Grade 1 retrolisthesis of L3 on L4. Grade 1 ante rolisthesis of L4 on L5. IMPRESSION: 1. There is haziness of the right kidney, moderate right hydroureter, and perinephric and periureter al inflammatory stranding. Normal appearance of the urinary bladder and no urolithiasis. Findings may upper tract infection such as pyelonephritis. Recommend correlation with urinalysis. 2. Diverticulosis. No acute diverticulitis. 3. Benign left adrenal adenoma. 4. Cholelithiasis.
[2020-03-09] MEDS ORDERED: NALOXONE 0.4 MG/ML 1 ML VIAL IV PRN (09:32)
[2020-03-09] MEDS ORDERED: ACETAMINOPHEN TAB 325 MG TAB PO PRN (09:32)
[2020-03-09] MEDS ORDERED: IBUPROFEN 400 MG TAB PO PRN (09:32)
[2020-03-09] MEDS: SODIUM CHLORIDE 0.9% 1,000 ML IV SCH ×2 (09:57→23:01)
[2020-03-09] MEDS: LOSARTAN 50 MG TAB PO SCH (11:13)
[2020-03-09] MEDS: SPIRONOLACTONE 25 MG TAB PO SCH (11:14)
[2020-03-09] MEDS: GABAPENTIN 300 MG CAP PO SCH ×3 (11:14→23:00)
[2020-03-09] MEDS: METOPROLOL TARTRATE 50 MG TAB PO SCH ×2 (11:14→16:46)
[2020-03-09] MEDS ORDERED: ALBUTEROL HFA INHALER INHALATION PRN (13:43)
[2020-03-09] MEDS: BACLOFEN 10 MG TAB PO PRN (16:45)
[2020-03-09] MEDS: ASCORBIC ACID 500 MG TAB PO SCH (16:46)
[2020-03-09] MEDS: PANTOPRAZOLE 40 MG TABLET PO SCH (16:46)
[2020-03-09] MEDS: MULTIVITAMINS, THERA 1 EACH TAB PO SCH (16:46)
[2020-03-09] MEDS: DOFETILIDE 125 MCG CAP PO SCH (16:47)
[2020-03-09] MEDS: CYANOCOBALAMIN 500 MCG TAB PO SCH (16:47)
[2020-03-09] MEDS: APIXABAN 5 MG TAB PO SCH (16:47)
[2020-03-09] MEDS: NON FORMULARY DRUG (Calcium/Magnesium/Zinc [Calcium-Magnesium-Zinc Tablet] 1 TAB) PO SCH (18:07)
[2020-03-09] MEDS ORDERED: IBUPROFEN 800 MG TAB PO PRN (18:35)
--- NOTE | 2020-03-09 20:50 | P.GSCN ---
History of Present Illness Consult date: 03/09/20 Reason for Consult: Right hydronephrosis and pyelonephritis History of present illness: The patient is a 59-year-old female admitted through the emergency room this morning for evaluation of a fever and right lower quadrant pain. The patient says that she developed the onset of pain in the right lower quadrant with radiation to the suprapubic area approximately 10 PM last night. It was rated as an 8 out of 10 at that time. The patient was nauseated and had chills. She came to the emergency room at approximately 6 in the morning. At that time she had a temperature 102.9. She was noted to have a white blood count of 11,800. Urinalysis showed evidence of hematuria and pyuria. Lactic acid was 1.4. The patient was started on ceftriaxone. CT scan of the abdomen and pelvis without IV contrast showed mild right hydroureteronephrosis with a dilated ureter down to the region of the bladder. There was some perinephric stranding around the right kidney. There was no calculus identified along the course of the ureter. No stones were noted in the kidneys. The patient was started on ceftriaxone. She says that her pain improved markedly shortly after the CT scan and since then has been rated as a mximum of 3 out of 10. She is no longer nauseated. She continues to have intermittent fevers as high as 103. Preliminary blood cu ltures are growing a gram-negative arthur The patient says that she has a history of urolithiasis which began approximately 20 years ago. All of her stones have passed spontaneously. She says that she passed 2 calculi last week. She has noted no gross hematuria but says that her urine has had an over for several months. She denies any previous history of urinary tract infection. She says she usually voids every 1-1/2-2 hours during the day and night. She's had problems with urgency and had an episode of urge incontinence yesterday. She has been wearing poise pads for some time due to the urgency. She believes that at least a portion of the frequency and urgency is related to the use of diuretics for treatment of her pedal edema. There is no family history of urolithiasis. The patient says that none of her stones have ever been analyzed. Review of Systems - Constitutional Reports chills, Reports fever - Cardiovascular Reports edema, Reports high blood pressure, Reports irregular heart beat, Reports leg edema - Respiratory Denies cough - Gastrointestinal Reports as per HPI, Reports nausea, Denies constipation, Denies vomiting - Genitourinary Genitourinary: Reports as per HPI Past Medical History Past Medical History: Atrial Fibrillation, Chest Pain / Angina, Heart Failure, COPD, GERD/Reflux, Hyperlipidemia, Hypertension, Memory Impairment, Myocardial Infarction ([place]), Mitral Valve Prolapse (MVP), Musculoskeletal Disorder, Neurologic Disorder, Osteoarthritis (OA), Pneumonia, Sleep Apnea/CPAP/BIPAP, Thyroid Disorder Additional Past Medical History / Comment(s): "Current CHF, wearing heart monitor." Enlarged heart, irrregular heart beat-Afib, DDD, HERNIATED DISC, lesions on brain - Multiple Sclerosis, IBS, Vertigo, Emphysema. Rectal bleeding X last 2 years. Hx Kidney stones. Gallstones currently. 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 CPAP use. Hypothyroid. Chronic back pain. Last Myocardial Infarction Date:: several years ago History of Any Multi-Drug Resistant Organisms: None Reported Past Surgical History: Appendectomy, Heart Catheterization, Hysterectomy (And bilateral oopherectomy), Tonsillectomy Additional Past Surgical History / Comment(s): LASER SURG TO BACK, heart cath no stents 3-4, colonoscopy, left eye surgery. Past Anesthesia/Blood Transfusion Reactions: Motion Sickness Past Psychological History: Anxiety, PTSD Smoking Status: Former smoker Past Alcohol Use History: None Reported Past Drug Use History: None Reported - Past Family History Father Family Medical History: Cancer Additional Family Medical History / Comment(s): PROSTATE AND LUNG CANCER. Mother Family Medical History: CVA/TIA, Hypertension Medications and Allergies Home Medications Medication Instructions Recorded Confirmed Type Lansoprazole [Prevacid] 30 mg PO BID@0400,1600 01/20/03/09/20 History Apixaban [Eliquis] 5 mg PO BID@0400,159903/28/16 03/09/20 History Atorvastatin [Lipitor] 40 mg PO DAILY@99903/28/16 03/09/20 History Calcium Carbonate/Vitamin D3 1 tab PO DAILY@39903/28/16 03/09/20 History [Calcium 600-Vit D3 200 Tablet] Ferrous Sulfate [Feosol] 325 mg PO DAILY@39903/28/16 03/09/20 History Furosemide [Lasix] 40 mg PO DAILY@39903/28/16 03/09/20 History Gabapentin 600 mg PO QID@04,10,16,22 03/28/16 03/09/20 History [place]-3 Fatty Acids/Fish Oil [Fish 1 cap PO DAILY@99903/28/16 03/09/20 History Oil 1,000 mg Softgel] Baclofen [Lioresal] 20 mg PO TID@0400,1000,1599 PRN 10/03/17 03/09/20 History Ascorbic Acid [Vitamin C] 500 mg PO BID@0400,159904/25/19 03/09/20 History Calcium/Magnesium/Zinc 1 tab PO DAILY@159904/25/19 03/09/20 History [Tzdfasr-Zapazfhfz-Ppxa Tablet] Cyanocobalamin [Vitamin B-12] 500 mcg PO DAILY@159904/25/19 03/09/20 History Levothyroxine Sodium [Synthroid] 150 mcg PO DAILY@39904/25/19 03/09/20 History Magnesium Oxide [Grady] 500 mg PO DAILY@99904/25/19 03/09/20 History Cholecalciferol (Vitamin D3) 2,000 unit PO DAILY@99905/22/19 03/09/20 History [Vitamin D3] Dofetilide [Tikosyn] 125 mcg PO BID@0400,159905/22/19 03/09/20 History Multivit-Min/Iron/Folic/Lutein 1 tab PO DAILY@159905/22/19 03/09/20 History [Centrum Silver Women Tablet] Albuterol Inhaler [Ventolin Hfa 2 puff INHALATION RT-Q6H PRN 12/22/19 03/09/20 History Inhaler] Fluticasone Nasal [place] [Flonase 1 spray EA NOSTRIL HS 02/06/20 03/09/20 History Nasal [place]] Metoprolol Tartrate [Lopressor] 50 mg PO BID@0,159902/06/20 03/09/20 History Omeprazole Magnesium [PriLOSEC OTC] 20 mg PO DAILY@39902/06/20 03/09/20 History Potassium Chloride [K-Tab ER] 20 meq PO DAILY@99902/06/20 03/09/20 History Spironolactone [Aldactone] 50 mg PO DAILY@1000 02/06/20 03/09/20 History oxyCODONE HCL/ACETAMINOPHEN 1 tab PO TID@0400,1000,1600 02/06/20 03/09/20 History [Percocet 7.5-325 mg] Losartan Potassium 100 mg PO DAILY@1000 03/09/20 03/09/20 History Allergies Allergy/AdvReac Type Severity Reaction Status Date / Time No Known Allergies Allergy Verified 03/09/20 08:42 Surgical - Exam Vital Signs Temp Pulse Resp BP Pulse Ox 102.9 F H 84 18 175/83 91 L 03/09/20 05:45 03/09/20 05:45 03/09/20 05:45 03/09/20 05:45 03/09/20 05:45 - General well developed, well nourished, no distress, obese - Neck no masses, no lymphadectomy - Respiratory normal respiratory effort - Abdomen Abdomen: soft, no non tender, no organomegaly Hernia: none - Psychiatric oriented to time, speech is normal, memory intact Results - Labs 03/09/20 05:45 03/09/20 05:51 Abnormal Lab Results - Last 24 Hours (Table) 03/09/20 03/09/20 03/09/20 Range/Units 05:45 05:51 06:54 WBC 11.8 H (3.8-10.6) k/uL Neutrophils # 9.7 H (1.3-7.7) k/uL Lymphocytes # 0.8 L (1.0-4.8) k/uL Sodium 135 L (137-145) mmol/L BUN 21 H (7-17) mg/dL Glucose 130 H (74-99) mg/dL Total Protein 6.2 L (6.3-8.2) g/dL Urine Appearance Cloudy H (Clear) Urine Protein 1+ H (Negative) Urine Blood Trace H (Negative) Ur Leukocyte Esterase Trace H (Negative) Urine RBC 39 H (0-5) /hpf Urine WBC 15 H (0-5) /hpf Urine Bacteria Few H (None) /hpf Urine Mucus Rare H (None) /hpf Microbiology - Last 24 Hours (Table) 03/09/20 05:51 Blood Culture Gram Stain - Preliminary Blood 03/09/20 05:51 Blood Culture - Final Blood 03/09/20 06:54 Urine Culture - Preliminary Urine,Voided Diabetes panel 03/09/20 Range/Units 05:51 Sodium 135 L (137-145) mmol/L Potassium 4.0 (3.5-5.1) mmol/L Chloride 100 (98-107) mmol/L Carbon Dioxide 26 (22-30) mmol/L BUN 21 H (7-17) mg/dL Creatinine 0.78 (0.52-1.04) mg/dL Glucose 130 H (74-99) mg/dL Calcium 9.3 (8.4-10.2) mg/dL AST 26 (14-36) U/L ALT 27 (4-34) U/L Alkaline Phosphatase 109 (38-126) U/L Total Protein 6.2 L (6.3-8.2) g/dL Albumin 4.0 (3.5-5.0) g/dL Calcium panel 03/09/20 Range/Units 05:51 Calcium 9.3 (8.4-10.2) mg/dL Albumin 4.0 (3.5-5.0) g/dL Pituitary panel 03/09/20 Range/Units 05:51 Sodium 135 L (137-145) mmol/L Potassium 4.0 (3.5-5.1) mmol/L Chloride 100 (98-107) mmol/L Carbon Dioxide 26 (22-30) mmol/L BUN 21 H (7-17) mg/dL Creatinine 0.78 (0.52-1.04) mg/dL Glucose 130 H (74-99) mg/dL Calcium 9.3 (8.4-10.2) mg/dL Adrenal panel 03/09/20 Range/Units 05:51 Sodium 135 L (137-145) mmol/L Potassium 4.0 (3.5-5.1) mmol/L Chloride 100 (98-107) mmol/L Carbon Dioxide 26 (22-30) mmol/L BUN 21 H (7-17) mg/dL Creatinine 0.78 (0.52-1.04) mg/dL Glucose 130 H (74-99) mg/dL Calcium 9.3 (8.4-10.2) mg/dL Total Bilirubin 0.7 (0.2-1.3) mg/dL AST 26 (14-36) U/L ALT 27 (4-34) U/L Alkaline Phosphatase 109 (38-126) U/L Total Protein 6.2 L (6.3-8.2) g/dL Albumin 4.0 (3.5-5.0) g/dL Assessment and Plan (1) Pyelonephritis Narrative/Plan: Patient's positive blood culture and abnormal urinalysis are consistent with acute right pyelonephritis. The patient is hemodynamically stable and is currently on ceftriaxone. She has no previous history of urinary tract infec tion and in view of this ceftriaxone is a good choice, pending final culture results. Current Visit: Yes Status: Acute Code(s): N12 - TUBULO-INTERSTITIAL NEPHRITIS, NOT SPCF ACUTE OR CHRONIC SNOMED Code(s): 64322117 (2) Hydroureter Narrative/Plan: The patient's history and CT scan findings are suggestive of passage of the right ureteral calculus sometime this morning prior to the CT scan. This would explain improvement in the patient's right lower quadrant discomfort. The hydroureter could be related to edema at the ureterovesical junction following passage of a calculus. At least at the present time I feel the patient could be closely observed but if she deteriorates then placement of a double-J catheter will be need to be considered. Current Visit: Yes Status: Acute Code(s): N13.4 - HYDROURETER SNOMED Code(s): 76731990
--- NOTE | 2020-03-09 22:32 | P.HPIM ---
History of Present Illness H&P Date: 03/09/20 Chief Complaint: Abd. pain Patient is a 59-year-old female with a known history of hypertension, hyperlipidemia, paroxysmal atrial fibrillation on anticoagulation deepness, hi story of mitral valve prolapse and history of NC, memory impairment and obstructive sleep apnea, hypothyroidism degenerative disc disease and multiple sclerosis, IBS and other multiple medical problems including anxiety/PTSD and previous history of smoking presents to ER with complaints of abdominal pain mainly in the right lower quadrant pain radiating down the groin area. Patient has been on and off pain for the past few days. Patient states that about 2 weeks ago she passed a kidney stone but she did not seek any medical care at that time. Patient has been doing well since then. Last night patient developed severe pain in the right lower quadrant 10 out of 10 in severity and resents to ER by EMS. on and off. Pain is associate with nausea and no episodes of vomiting. Denied any diarrhea. Patient was febrile on admission. Denies any cough or sputum production. No shortness of breath. No headache or dizziness or lightheadedness. Lab laboratory showed WBC 11.8, hemoglobin 13.1 and platelets 174, sodium 135, potassium 4.0, BUN 21 creatinine 0.78 Urinalysis showed cloudy with trace leukocytes present 15 WBCs T-max was 102.9 on admission. Chest x-ray showed chronic changes without acute pulmonary process CT of the abdomen pelvis showed there is haziness of the right kidney, moderate right hydroureter and perinephric and periureteral inflammatory stranding. Normal appearance of the urinary bladder and no urolithiasis. Findings made upper tract infection such as pyelonephritis. Diverticulosis Benign left adrenal adenoma Cholelithiasis Review of Systems Constitutional: Patient denies any fever or chills . No generalized weakness or weight loss. Abdomen:Patient does have right lower quadrant abdominal pain associate with nausea. No episode of vomiting. No diarrhea.n. Cardiovascular: Patient denies any chest pain or short of breath no palpitations. Respiratory: patient denied any cough is from production. No shortness of breath Neurologic: Patient denied any numbness or tingling headache. Musculoskeletal: Patient denies any complaints of joint swelling or deformity. Skin: Negative Psychiatric: Negative Endocrine: No heat or cold intolerance. No recent weight gain. Genitourinary: No dysuria or hematuria. All other 14 point ROS negative except the above Past Medical History Past Medical History: Atrial Fibrillation, Chest Pain / Angina, Heart Failure, COPD, GERD/Reflux, Hyperlipidemia, Hypertension, Memory Impairment, Myocardial Infarction ([place]), Mitral Valve Prolapse (MVP), Musculoskeletal Disorder, Neurologic Disorder, Osteoarthritis (OA), Pneumonia, Sleep Apnea/CPAP/BIPAP, Thyroid Disorder Additional Past Medical History / Comment(s): "Current CHF, wearing heart monitor." Enlarged heart, irrregular heart beat-Afib, DDD, HERNIATED DISC, lesions on brain - Multiple Sclerosis, IBS, Vertigo, Emphysema. Rectal bleeding X last 2 years. Hx Kidney stones. Gallstones currently. 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 CPAP use. Hypothyroid. Chronic back pain. Last Myocardial Infarction Date:: several years ago History of Any Multi-Drug Resistant Organisms: None Reported Past Surgical History: Appendectomy, Heart Catheterization, Hysterectomy, To nsillectomy Additional Past Surgical History / Comment(s): LASER SURG TO BACK, heart cath no stents 3-4, colonoscopy, left eye surgery. Past Anesthesia/Blood Transfusion Reactions: Motion Sickness Past Psychological History: Anxiety, PTSD Smoking Status: Former smoker Past Alcohol Use History: None Reported Past Drug Use History: None Reported - Past Family History Father Family Medical History: Cancer Additional Family Medical History / Comment(s): PROSTATE AND LUNG CANCER. Mother Family Medical History: CVA/TIA, Hypertension Medications and Allergies Home Medications Medication Instructions Recorded Confirmed Type Lansoprazole [Prevacid] 30 mg PO BID@0400,1600 01/20/14 03/09/20 History Apixaban [Eliquis] 5 mg PO BID@0400,159903/28/16 03/09/20 History Atorvastatin [Lipitor] 40 mg PO DAILY@99903/28/16 03/09/20 History Calcium Carbonate/Vitamin D3 1 tab PO DAILY@39903/28/16 03/09/20 History [Calcium 600-Vit D3 200 Tablet] Ferrous Sulfate [Feosol] 325 mg PO DAILY@39903/28/16 03/09/20 History Furosemide [Lasix] 40 mg PO DAILY@39903/28/16 03/09/20 History Gabapentin 600 mg PO QID@04,10,16,22 03/28/16 03/09/20 History [place]-3 Fatty Acids/Fish Oil [Fish 1 cap PO DAILY@99903/28/16 03/09/20 History Oil 1,000 mg Softgel] Baclofen [Lioresal] 20 mg PO TID@0400,999,1599 PRN 10/03/17 03/09/20 History Ascorbic Acid [Vitamin C] 500 mg PO BID@0400,159904/25/19 03/09/20 History Calcium/Magnesium/Zinc 1 tab PO DAILY@159904/25/19 03/09/20 History [Hfuayff-Vuudpyfbg-Fnid Tablet] Cyanocobalamin [Vitamin B-12] 500 mcg PO DAILY@159904/25/19 03/09/20 History Levothyroxine Sodium [Synthroid] 150 mcg PO DAILY@39904/25/19 03/09/20 History Magnesium Oxide [Grady] 500 mg PO DAILY@99904/25/19 03/09/20 History Cholecalciferol (Vitamin D3) 2,000 unit PO DAILY@99905/22/19 03/09/20 History [Vitamin D3] Dofetilide [Tikosyn] 125 mcg PO BID@399,159905/22/19 03/09/20 History Multivit-Min/Iron/Folic/Lutein 1 tab PO DAILY@159905/22/19 03/09/20 History [Centrum Silver Women Tablet] Albuterol Inhaler [Ventolin Hfa 2 puff INHALATION RT-Q6H PRN 12/22/19 03/09/20 History Inhaler] Fluticasone Nasal [place] [Flonase 1 spray EA NOSTRIL HS 02/06/20 03/09/20 History Nasal [place]] Metoprolol Tartrate [Lopressor] 50 mg PO BID@399,159902/06/20 03/09/20 History Omeprazole Magnesium [PriLOSEC OTC] 20 mg PO DAILY@39902/06/20 03/09/20 History Potassium Chloride [K-Tab ER] 20 meq PO DAILY@99902/06/20 03/09/20 History Spironolactone [Aldactone] 50 mg PO DAILY@99902/06/20 03/09/20 History oxyCODONE HCL/ACETAMINOPHEN 1 tab PO TID@0400,1000,159902/06/20 03/09/20 History [Percocet 7.5-325 mg] Losartan Potassium 100 mg PO DAILY@1000 03/09/20 03/09/20 History Allergies Allergy/AdvReac Type Severity Reaction Status Date / Time No Known Allergies Allergy Verified 03/09/20 08:42 Physical Exam Vitals: Vital Signs Temp Pulse Resp BP Pulse Ox 03/09/20 10:16 98.8 F 61 18 102/57 96 03/09/20 09:06 63 18 101/56 94 L 03/09/20 07:50 99.6 F 66 18 113/64 95 03/09/20 06:55 102.7 F H 72 18 124/62 96 03/09/20 06:03 102.7 F H 87 18 159/81 93 L 03/09/20 05:52 100.3 F H 86 22 169/83 91 L 03/09/20 05:45 102.9 F H 84 18 175/83 91 L Intake and Output 03/08/20 03/09/20 03/09/20 22:59 06:59 14:59 Other: Weight 129.274 kg PHYSICAL EXAMINATION: Patient is lying in the bed comfortably, no acute distress, awake alert and oriented.. HEENT: Normocephalic. Neck is supple. Pupils reactive. Nostrils clear. Oral cavity is moist. Ears reveal no drainage. Neck reveals no JVD, carotid bruits, or thyromegaly. CHEST EXAMINATION: Trachea is central. Symmetrical expansion. Lung gerber clear to auscultation and percussion. CARDIAC: Normal S1, S2 with no gallops. No murmurs ABDOMEN: Soft. Right lower quadrant and groin tenderness. Bowel sounds normal. No organomegaly. No abdominal bruits. Extremities: reveal no edema. No clubbing or cyanosis Neurologically awake, alert, oriented x3 with well-coordinated movements. Mild cognitive impairment. No focal deficits noted Skin: No rash or skin lesions. Psychiatric: Coperative. Nonsuicidal Musculoskeletal: No joint swelling or deformity. Normal range of motion. Results CBC & Chem 7: 03/09/20 05:45 03/09/20 05:51 Labs: Abnormal Lab Results - Last 24 Hours (Table) 03/09/20 03/09/20 03/09/20 Range/Units 05:45 05:51 06:54 WBC 11.8 H (3.8-10.6) k/uL Neutrophils # 9.7 H (1.3-7.7) k/uL Lymphocytes # 0.8 L (1.0-4.8) k/uL Sodium 135 L (137-145) mmol/L BUN 21 H (7-17) mg/dL Glucose 130 H (74-99) mg/dL Total Protein 6.2 L (6.3-8.2) g/dL Urine Appearance Cloudy H (Clear) Urine Protein 1+ H (Negative) Urine Blood Trace H (Negative) Ur Leukocyte Esterase Trace H (Negative) Urine RBC 39 H (0-5) /hpf Urine WBC 15 H (0-5) /hpf Urine Bacteria Few H (None) /hpf Urine Mucus Rare H (None) /hpf Thrombosis Risk Factor Assmnt - DVT/VTE Prophylaxis DVT/VTE Prophylaxis: Pharmacologic Prophylaxis ordered Assessment and Plan Assessment: Acute pyelonephritis Right lower quadrant pain radiating down the groin due to possible passage of stone. Moderate right hydroureter. History of diverticulosis Paroxysmal atrial fibrillation on anticoagulation with Eliquis COPD not in exacerbation Hypertension Hyperlipidemia History of NC History of mitral valve prolapse Multiple sclerosis Degenerative disc disease IBS History of renal stones and gallstones History of appendectomy Hypothyroidism Chronic back pain Obstructive sleep apnea on CPAP at home Anxiety/PTSD Previous history of smoking DVT prophylaxis patient is already on full anticoagulation Plan: Patient will be continued on IV hydration and antibiotics in the form of ceftriaxone. Can with pain management and follow-up urine culture report. Continue with breathing treatments and home medications including Eliquis. Patient does have right hydroureter and perinephric and periureteral inflammatory stranding likely due to passage of stone. Urology was consulted for further evaluation. Continue to follow closely. Time with Patient: Greater than 30
[2020-03-09] MEDS: FLUTICASONE 50MCG/SPRAY NASAL 16GM EA NOSTRIL SCH (23:00)
[2020-03-10] MEDS ORDERED: NON FORMULARY DRUG (Omeprazole Magnesium [Prilosec Otc] 20 MG) PO SCH (04:00)
[2020-03-10] MEDS ORDERED: ONDANSETRON 4 MG/2 ML VIAL IVP PRN (04:25)
[2020-03-10] MEDS ORDERED: KETOROLAC 30 MG/ML 1 ML VIAL IVP ONE (04:25)
[2020-03-10] MEDS: BACLOFEN 10 MG TAB PO PRN ×3 (05:19→16:11)
[2020-03-10] MEDS: FUROSEMIDE 40 MG TAB PO SCH (05:19)
[2020-03-10] MEDS: APIXABAN 5 MG TAB PO SCH ×2 (05:19→16:07)
[2020-03-10] MEDS: ASCORBIC ACID 500 MG TAB PO SCH ×2 (05:19→16:07)
[2020-03-10] MEDS: CALCIUM CARB-VIT D 500MG-200UN 1 EACH TAB PO SCH (05:19)
[2020-03-10] MEDS: METOPROLOL TARTRATE 50 MG TAB PO SCH ×2 (05:19→16:06)
[2020-03-10] MEDS: FERROUS SULFATE 325 MG TAB PO SCH (05:19)
[2020-03-10] MEDS: GABAPENTIN 300 MG CAP PO SCH ×4 (05:19→21:14)
[2020-03-10] MEDS: DOFETILIDE 125 MCG CAP PO SCH ×2 (05:20→16:05)
[2020-03-10] MEDS: PANTOPRAZOLE 40 MG TABLET PO SCH ×2 (05:20→16:06)
[2020-03-10] MEDS: LEVOTHYROXINE 75 MCG TAB PO SCH (05:20)
[2020-03-10 06:20] LABS: African American GFR (CKD) >90 (>60 ml/min/1.73 sqM); Anion Gap 5 mmol/L; Blood Urea Nitrogen 17 mg/dL (7-17); Calcium 8.6 mg/dL (8.4-10.2); Carbon Dioxide 26 mmol/L (22-30); Chloride 102 mmol/L (98-107); Glucose 127 mg/dL (74-99); Non-African American GFR(CKD) 83 (>60 ml/min/1.73 sqM); Sodium 133 mmol/L (137-145)
[2020-03-10 06:30] LABS: Basophils # (A) 0.1 k/uL (0-0.2); Basophils % (A) 1 %; Eosinophils % (A) 0 %; HCT 35.7 % (34.0-46.0); HGB 11.7 gm/dL (11.4-16.0); Lymphocytes # (A) 0.9 k/uL (1.0-4.8); Lymphocytes % (A) 10 %; MCH 30.9 pg (25.0-35.0); MCHC 32.8 g/dL (31.0-37.0); MCV 94.3 fL (80.0-100.0); Mean Platelet Volume 8.9; Monocytes # (A) 0.8 k/uL (0-1.0); Monocytes % (A) 9 %; Neutrophils % (A) 79 %; Platelet Count 161 k/uL (150-450); RBC 3.78 m/uL (3.80-5.40); RDW 13.7 % (11.5-15.5); WBC 8.9 k/uL (3.8-10.6)
[2020-03-10] MEDS: oxyCODONE-APAP 7.5-325MG 1 EACH TAB PO PRN ×2 (09:24→16:11)
[2020-03-10] MEDS: SODIUM CHLORIDE 0.9% 1,000 ML IV SCH (09:26)
[2020-03-10] MEDS: IBUPROFEN 400 MG TAB PO PRN ×2 (09:34→20:31)
[2020-03-10] MEDS ORDERED: NON FORMULARY DRUG (Omega-3 Fatty Acids/Fish Oil [Fish Oil 1,000 Mg Softgel] 1 CAP) PO SCH (10:00)
[2020-03-10] MEDS: LOSARTAN 50 MG TAB PO SCH ×2 (10:30→10:32)
[2020-03-10] MEDS: ATORVASTATIN 40 MG TAB PO SCH (10:31)
[2020-03-10] MEDS: SPIRONOLACTONE 25 MG TAB PO SCH (10:31)
[2020-03-10] MEDS: MAGNESIUM OXIDE 400 MG TAB PO SCH (10:31)
[2020-03-10] MEDS: CHOLECALCIFEROL 1,000 UNIT TAB PO SCH (10:32)
[2020-03-10] MEDS: NON FORMULARY DRUG (Calcium/Magnesium/Zinc [Calcium-Magnesium-Zinc Tablet] 1 TAB) PO SCH (16:08)
[2020-03-10] MEDS: CYANOCOBALAMIN 500 MCG TAB PO SCH (16:08)
[2020-03-10] MEDS: MULTIVITAMINS, THERA 1 EACH TAB PO SCH (16:10)
--- NOTE | 2020-03-10 19:27 | P.PN ---
Progress Note - Text Progress Note Date: 03/10/20 The patient did have some fever last night but has been generally afebrile today. She says she's had no pain since yesterday. White blood count is improved at 8900. She has been continued on ceftriaxone pending final results of her urine and blood cultures. At least at this time I do not feel that placement of a right double-J catheter will be necessary. I would suggest that the patient have a follow-up renal ultrasound either prior to discharge or in a week or two to ensure that her ri ght hydronephrosis has improved.
[2020-03-10] MEDS: FLUTICASONE 50MCG/SPRAY NASAL 16GM EA NOSTRIL SCH (21:14)
--- NOTE | 2020-03-11 00:21 | P.CONS ---
History of Present Illness - Reason for Consult Consult date: 03/10/20 Gram-negative bacteremia Requesting physician: Jennifer Cortes - Chief Complaint Right-sided abdominal pain x one day - History of Present Illness Patient is 59" female with a past medical history significant for renal stone this patient apparently did pass a stone about 2 weeks ago did not seek any medical attention at that point patient presented to [facility] ER yesterday morning with chief complaints of acute right lower quadrant abdominal pain patient describes the pain to be more of a sharp in nature almost 10 out of 10 in severity with associated nausea but no vomiting denies any diarrhea that has slight urinary symptom of burning but no frequency or hematuria with the symptoms the patient was evaluated by the physician on arrival to the ER patient did have a fever of 102F, patient did have elevated white count of 11.1 patient did have positive UA patient also have CT of abdominal pelvis which did shows moderate right hydroureter and perinephric and perirectal inflammatory stranding no evidence of any diverticulitis the patient was started on Rocephin 1 g daily patient blood culture revealed positive with gram-negative bacilli that prompted this infectious disease consultation Review of Systems Positive point has been mentioned in the HPI rest of the systems are negative Past Medical History Past Medical History: Atrial Fibrillation, Chest Pain / Angina, Heart Failure, COPD, GERD/Reflux, Hyperlipidemia, Hypertension, Memory Impairment, Myocardial Infarction ([place]), Mitral Valve Prolapse (MVP), Musculoskeletal Disorder, Neurologic Disorder, Osteoarthritis (OA), Pneumonia, Sleep Apnea/CPAP/BIPAP, Thyroid Disorder Additional Past Medical History / Comment(s): "Current CHF, wearing heart monitor." Enlarged heart, irrregular heart beat-Afib, DDD, HERNIATED DISC, lesions on brain - Multiple Sclerosis, IBS, Vertigo, Emphysema. Rectal bleeding X last 2 years. Hx Kidney stones. Gallstones currently. 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 CPAP use. Hypothyroid. Chronic back pain. Last Myocardial Infarction Date:: several years ago History of Any Multi-Drug Resistant Organisms: None Reported Past Surgical History: Appendectomy, Heart Catheterization, Hysterectomy, Tonsillectomy Additional Past Surgical History / Comment(s): LASER SURG TO BACK, heart cath no stents 3-4, colonoscopy, left eye surgery. Past Anesthesia/Blood Transfusion Reactions: Motion Sickness Past Psychological History: Anxiety, PTSD Smoking Status: Former smoker Past Alcohol Use History: None Reported Past Drug Use History: None Reported - Past Family History Father Family Medical History: Cancer Additional Family Medical History / Comment(s): PROSTATE AND LUNG CANCER. Mother Family Medical History: CVA/TIA, Hypertension Medications and Allergies Home Medications Medication Instructions Recorded Confirmed Type Lansoprazole [Prevacid] 30 mg PO BID@0400,01/20/03/09/20 History Apixaban [Eliquis] 5 mg PO BID@0400,159903/28/16 03/09/20 History Atorvastatin [Lipitor] 40 mg PO DAILY@99903/28/16 03/09/20 History Calcium Carbonate/Vitamin D3 1 tab PO DAILY@39903/28/16 03/09/20 History [Calcium 600-Vit D3 200 Tablet] Ferrous Sulfate [Feosol] 325 mg PO DAILY@39903/28/16 03/09/20 History Furosemide [Lasix] 40 mg PO DAILY@39903/28/16 03/09/20 History Gabapentin 600 mg PO QID@,,,03/28/16 03/09/20 History [place]-3 Fatty Acids/Fish Oil [Fish 1 cap PO DAILY@99903/28/16 03/09/20 History Oil 1,000 mg Softgel] Baclofen [Lioresal] 20 mg PO TID@0400,999,1599 PRN 10/03/17 03/09/20 History Ascorbic Acid [Vitamin C] 500 mg PO BID@0400,159904/25/19 03/09/20 History Calcium/Magnesium/Zinc 1 tab PO DAILY@159904/25/19 03/09/20 History [Tyaysrw-Oljzpuvto-Pbio Tablet] Cyanocobalamin [Vitamin B-12] 500 mcg PO DAILY@159904/25/19 03/09/20 History Levothyroxine Sodium [Synthroid] 150 mcg PO DAILY@39904/25/19 03/09/20 History Magnesium Oxide [Grady] 500 mg PO DAILY@99904/25/19 03/09/20 History Cholecalciferol (Vitamin D3) 2,000 unit PO DAILY@99905/22/19 03/09/20 History [Vitamin D3] Dofetilide [Tikosyn] 125 mcg PO BID@0400,159905/22/19 03/09/20 History Multivit-Min/Iron/Folic/Lutein 1 tab PO DAILY@159905/22/19 03/09/20 History [Centrum Silver Women Tablet] Albuterol Inhaler [Ventolin Hfa 2 puff INHALATION RT-Q6H PRN 12/22/19 03/09/20 History Inhaler] Fluticasone Nasal [place] [Flonase 1 spray EA NOSTRIL HS 02/06/20 03/09/20 History Nasal [place]] Metoprolol Tartrate [Lopressor] 50 mg PO BID@0400,1600 02/06/20 03/09/20 History Omeprazole Magnesium [PriLOSEC OTC] 20 mg PO DAILY@04002/06/20 03/09/20 History Potassium Chloride [K-Tab ER] 20 meq PO DAILY@99902/06/20 03/09/20 History Spironolactone [Aldactone] 50 mg PO DAILY@1000 02/06/20 03/09/20 History oxyCODONE HCL/ACETAMINOPHEN 1 tab PO TID@0400,1000,159902/06/20 03/09/20 History [Percocet 7.5-325 mg] Losartan Potassium 100 mg PO DAILY@99903/09/20 03/09/20 History Allergies Allergy/AdvReac Type Severity Reaction Status Date / Time No Known Allergies Allergy Verified 03/09/20 08:42 Physical Exam Vitals: Vital Signs Temp Pulse Resp BP BP Pulse Ox 03/10/20 08:30 99.1 F 68 20 105/65 95 03/10/20 06:30 100 F H 03/10/20 04:05 102.2 F H 89 16 138/84 95 03/09/20 23:00 99 F 69 18 100/64 92 L 03/09/20 20:54 99.1 F 63 18 84/52 96/54 95 03/09/20 18:06 103.2 F H 03/09/20 17:00 101.6 F H 82 20 120/54 95 Intake and Output 03/09/20 03/10/20 03/10/20 22:59 06:59 14:59 Intake Total 500 Output Total 900 1000 650 Balance -400 -1000 -650 Intake: Oral 500 Output: Urine 900 1000 650 Other: # Voids 1 4 GENERAL DESCRIPTION: Middle-aged female lying in bed, no distress. No tachypnea or accessory muscle of respiration use. HEENT: Shows Pallor , no scleral icterus. Oral mucous membrane is dry. No pharyngeal erythema or thrush NECK: Trachea central, no thyromegaly. LUNGS: Unlabored breathing. Clear to auscultation anteriorly. No wheeze or crackle. HEART: S1, S2, regular rate and rhythm. No loud murmur ABDOMEN: Soft, no tenderness , guarding or rigidity, no organomegaly EXTREMITIES: No edema of feet. SKIN: No rash, no masses palpable. NEUROLOGICAL: The patient is awake, alert, oriented x3, mood and affect normal. Results CBC & Chem 7: 03/10/20 05:45 03/10/20 05:45 Labs: Abnormal Lab Results - Last 24 Hours (Table) 03/10/20 03/10/20 Range/Units 05:45 05:45 RBC 3.78 L (3.80-5.40) m/uL Lymphocytes # 0.9 L (1.0-4.8) k/uL Sodium 133 L (137-145) mmol/L Glucose 127 H (74-99) mg/dL Microbiology - Last 24 Hours (Table) 03/09/20 05:51 Blood Culture Gram Stain - Preliminary Blood Blood Culture - Preliminary Escherichia coli 03/09/20 05:51 Blood Culture - Final Blood 03/09/20 06:54 Urine Culture - Preliminary Urine,Voided Assessment and Plan Assessment: 1- patient with gram-negative bacteremia source is likely related in this patient presented to hospital with sepsis with fever and elevated white count and positive UA source is likely complicated urinary tract infection with right- sided hydroureter and pyelonephritis, likely enteric gram-negative pathogen such as E. coli (1) Sepsis Current Visit: Yes Status: Acute Code(s): A41.9 - SEPSIS, UNSPECIFIED ORGANISM SNOMED Code(s): 15970272 (2) Gram-negative bacteremia Current Visit: Yes Status: Acute Code(s): R78.81 - BACTEREMIA SNOMED Code(s): 667789390593 (3) Pyelonephritis Current Visit: Yes Status: Acute Code(s): N12 - TUBULO-INTERSTITIAL NEPHRITIS, NOT SPCF ACUTE OR CHRONIC SNOMED Code(s): 08647137 Plan: 1- we will increase Rocephin to 2 g IV piggyback daily while waiting for the culture finalized 2- urologist following the patient may benefit from cystoscopy and ureteral stent for hydronephrosis 3-IV fluid We will follow on clinical condition and cultures to further adjust medication if needed Thank you for this consultation will follow this patient with you Time with Patient: Greater than 30
[2020-03-11] MEDS: GABAPENTIN 300 MG CAP PO SCH ×4 (04:53→22:21)
[2020-03-11] MEDS: oxyCODONE-APAP 7.5-325MG 1 EACH TAB PO PRN ×3 (04:53→16:44)
[2020-03-11] MEDS: ASCORBIC ACID 500 MG TAB PO SCH ×2 (04:54→16:43)
[2020-03-11] MEDS: CALCIUM CARB-VIT D 500MG-200UN 1 EACH TAB PO SCH (04:54)
[2020-03-11] MEDS: APIXABAN 5 MG TAB PO SCH ×2 (04:54→16:43)
[2020-03-11] MEDS: FERROUS SULFATE 325 MG TAB PO SCH (04:54)
[2020-03-11] MEDS: PANTOPRAZOLE 40 MG TABLET PO SCH ×2 (04:54→16:43)
[2020-03-11] MEDS: BACLOFEN 10 MG TAB PO PRN ×3 (04:54→16:42)
[2020-03-11] MEDS: LEVOTHYROXINE 75 MCG TAB PO SCH (04:55)
[2020-03-11] MEDS: FUROSEMIDE 40 MG TAB PO SCH (04:55)
[2020-03-11] MEDS: DOFETILIDE 125 MCG CAP PO SCH ×2 (04:55→16:42)
[2020-03-11] MEDS: METOPROLOL TARTRATE 50 MG TAB PO SCH ×2 (04:55→16:41)
[2020-03-11] MEDS: SODIUM CHLORIDE 0.9% 1,000 ML IV SCH ×2 (05:07→16:47)
[2020-03-11] MEDS: IBUPROFEN 400 MG TAB PO PRN ×2 (09:56→22:21)
[2020-03-11] MEDS: ATORVASTATIN 40 MG TAB PO SCH (09:57)
--- NOTE | 2020-03-11 09:57 | US ---
EXAMINATION TYPE: US renals and bladder DATE OF EXAM: 03/11/2020 COMPARISON: CT abdomen pelvis 03/09/2020 CLINICAL HISTORY: History of right hydronephrosis. EXAM MEASUREMENTS: Right Kidney: 10.7 x 5.4 x 6.9 cm Left Kidney: 11.9 x 4.9 x 5.3 cm Right Kidney: No hydronephrosis, mass, or nephrolithiasis. Left Kidney: No hydronephrosis, mass, or nephrolithiasis. Bladder: Incompletely distended and otherwise normal. Bilateral Jets seen: No IMPRESSION: 1. No hydronephrosis bilaterally. 2. Unremarkable urinary bladder.
[2020-03-11] MEDS: CHOLECALCIFEROL 1,000 UNIT TAB PO SCH (09:58)
[2020-03-11] MEDS: SPIRONOLACTONE 25 MG TAB PO SCH (09:59)
[2020-03-11] MEDS: MAGNESIUM OXIDE 400 MG TAB PO SCH (09:59)
[2020-03-11] MEDS: LOSARTAN 50 MG TAB PO SCH ×2 (09:59→10:26)
--- NOTE | 2020-03-11 10:39 | P.PN ---
Progress Note - Text Progress Note Date: 03/11/20 The patient continues to have intermittent fevers. She denies any abdominal or flank pain. Renal ultrasound was repeated this morning and shows resolution of the previous right hydronephrosis. In view of this placement of a double-J catheter will not be necessary. The patient will be continued on antibiotics based on her previous urine cultures. I plan no further evaluation.
--- NOTE | 2020-03-11 13:53 | CDI ---
Documentation Clarification Form Date: 03/11/2020 01:44:43 PM From: Barbara Luu RN, CCDS Admit Date: 03/09/2020 09:46:00 AM Patient Name: Arielle May Visit Number: [id number] ATTENTION: The Clinical Documentation Specialists (CDI) and [facility] Coding Staff appreciate your assistance in clarifying documentation. Please respond to the clarification below the line at the bottom and electronically sign. The CDI & [facility] Coding staff will review the response and follow-up if needed. Please note: Queries are made part of the Legal Health Record. If you have any questions, please contact the author of this message via ITS. Dr. Cortes History of CHF has been documented and requires further specificity. History/Risk Factors: Atrial Fib, Chest Pain, COPD, GERD, HTN, [place], MVP Clinical Indicators: 03/09 0545 Admission VS/Pulse OX: Temp 102.9, HR 84, RR 18, B/P 175/83, Spo2 91% 2l NC BNP: not checked 12/24/2019 Echocardiogram Results: moderate concentric LVH, EF 55-60% Chest X Ray: "chronic changes w/o acute pulmonary process." Treatment: Eliquis 5mg PO BID Tikosyn 125mcg PO BID Lasix 40 mg PO QD Lopressor 50 mg PO BID Aldactone 50 mg PO In your professional opinion, can you please clarify the acuity and type of CHF if known? Chronic Systolic Heart Failure: Chronic Diastolic Heart Failure: Chronic Systolic & Diastolic Heart Failure: Unable to Determine Other, please specify (Last Revision: October 2017) Chronic Diastolic Heart Failure: MTDD
[2020-03-11] MEDS: CYANOCOBALAMIN 500 MCG TAB PO SCH (16:41)
[2020-03-11] MEDS: MULTIVITAMINS, THERA 1 EACH TAB PO SCH (16:43)
[2020-03-11] MEDS: NON FORMULARY DRUG (Calcium/Magnesium/Zinc [Calcium-Magnesium-Zinc Tablet] 1 TAB) PO SCH (16:46)
--- NOTE | 2020-03-11 21:05 | PN ---
PROGRESS NOTE DATE OF SERVICE: 03/11/2020 REASON FOR FOLLOWUP: E coli urinary tract infection with bacteremia. INTERVAL HISTORY: Patient did spike another fever this morning of 101.8. The patient overall feeling slightly better, breathing comfortably. Denies having any chest pain. No shortness of breath or cough. No nausea, vomiting, abdominal pain or diarrhea. PHYSICAL EXAMINATION: Blood pressure 103/68 with a pulse of 72, temperature 98.6. He is 96% on room air. General description is a middle-aged male lying in bed in no distress. Respiratory system: Unlabored breathing. Clear to auscultation anteriorly. Heart S1, S2. Regular rate and rhythm. Abdomen soft, no tenderness. LABS: Hemoglobin 11.7, white count 8.9, BUN of 17, creatinine 0.78. Blood culture negative. DIAGNOSTIC IMPRESSION AND PLAN: Patient with an E coli bacteremia secondary to urinary source. Patient is covered with the Rocephin 2 g daily to continue. We will wait for the patient another 24 hour to make sure the patient afebrile 24 hours before transition to oral antibiotics. Questions and concerns were answered. MMODL / IJN: [id number] /
[2020-03-11] MEDS: FLUTICASONE 50MCG/SPRAY NASAL 16GM EA NOSTRIL SCH (22:21)
--- NOTE | 2020-03-11 22:39 | P.PN ---
Subjective Progress Note Date: 03/10/20 Principal diagnosis: Acute pyonephritis Patient is a 59-year-old female with a known history of hypertension, hyperlipidemia, paroxysmal atrial fibrillation on anticoagulation deepness, history of mitral valve prolapse and history of CO, memory impairment and obstructive sleep apnea, hypothyroidism degenerative disc disease and multiple sclerosis, IBS and other multiple medical problems including anxiety/PTSD and previous history of smoking presents to ER with complaints of abdominal pain mainly in the right lower quadrant pain radiating down the groin area. Patient has been on and off pain for the past few days. Patient states that about 2 weeks ago she passed a kidney stone but she did not seek any medical care at that time. Patient has been doing well since then. Last night patient developed severe pain in the right lower quadrant 10 out of 10 in severity and resents to ER by EMS. on and off. Pain is associate with nausea and no episodes of vomiting. Denied any diarrhea. Patient was febrile on admission. Denies any cough or sputum production. No shortness of breath. No headache or dizziness or lightheadedness. Lab laboratory showed WBC 11.8, hemoglobin 13.1 and platelets 174, sodium 135, potassium 4.0, BUN 21 creatinine 0.78 Urinalysis showed cloudy with trace leukocytes present 15 WBCs T-max was 102.9 on admission. Chest x-ray showed chronic changes without acute pulmonary process CT of the abdomen pelvis showed there is haziness of the right kidney, moderate right hydroureter and perinephric and periureteral inflammatory stranding. Nor mal appearance of the urinary bladder and no urolithiasis. Findings made upper tract infection such as pyelonephritis. Diverticulosis Benign left adrenal adenoma Cholelithiasis 03/10/2020 Patient is currently resting in the bed comfortably. No complaints of chest pain or shortness of breath. T-max was 102.2 this morning. Otherwise blood cultures grew gram-negative bacilli as well as urine cultures. ID was consulted. Currently being continued on ceftriaxone 1 g daily. Patient states that her abdominal pain is better today. Denies any dysuria or hematuria. No complaints of chest pain or shortness of breath. Current medications reviewed. Objective - Vital Signs Vital signs: Vital Signs Temp 98.7 F 03/11/20 22:23 Pulse 59 L 03/11/20 19:48 Resp 16 03/11/20 19:48 BP 105/65 03/11/20 19:48 Pulse Ox 96 03/11/20 19:48 Intake & Output 03/11/20 03/11/20 03/12/20 06:59 18:59 06:59 Intake Total 240 Output Total 500 500 Balance -500 -500 240 Intake: Oral 240 Output: Urine 500 500 Other: Voiding Method Toilet Toilet Diaper # Voids 2 3 1 - Exam PHYSICAL EXAMINATION: Patient is lying in the bed comfortably, no acute distress, awake alert and oriented.. HEENT: Normocephalic. Neck is supple. Pupils reactive. Nostrils clear. Oral cavity is moist. Ears reveal no drainage. Neck reveals no JVD, carotid bruits, or thyromegaly. CHEST EXAMINATION: Trachea is central. Symmetrical expansion. Lung gerber clear to auscultation and percussion. CARDIAC: Normal S1, S2 with no gallops. No murmurs ABDOMEN: Soft. Right lower quadrant and groin tenderness. Bowel sounds normal. No organomegaly. No abdominal bruits. Extremities: reveal no edema. No clubbing or cyanosis Neurologically awake, alert, oriented x3 with well-coordinated movements. Mild cognitive impairment. No focal deficits noted Skin: No rash or skin lesions. Psychiatric: Coperative. Nonsuicidal Musculoskeletal: No joint swelling or deformity. Normal range of motion. - Labs CBC & Chem 7: 03/10/20 05:45 03/10/20 05:45 Labs: Microbiology - Last 24 Hours (Table) 03/10/20 17:44 Blood Culture - Preliminary Blood No Growth after 24 hours 03/09/20 06:54 Urine Culture - Final Urine,Voided Escherichia coli 03/09/20 21:54 Blood Culture - Preliminary Blood No Growth after 24 hours 03/09/20 05:51 Blood Culture Gram Stain - Final Blood Blood Culture - Final Escherichia coli Assessment and Plan Assessment: Gram-negative bacilli bacteremia likely from pyelonephritis. Acute pyelonephritis With urine culture showing gram-negative bacilli Right lower quadrant pain radiating down the groin due to possible passage of stone. Moderate right hydroureter. History of diverticulosis Paroxysmal atrial fibrillation on anticoagulation with Eliquis COPD not in exacerbation Hypertension Hyperlipidemia History of CO History of mitral valve prolapse Multiple sclerosis Degenerative disc disease IBS History of renal stones and gallstones History of appendectomy Hypothyroidism Chronic back pain Obstructive sleep apnea on CPAP at home Anxiety/PTSD Previous history of smoking DVT prophylaxis patient is already on full anticoagulation Plan: Patient will be continued on IV hydration and antibiotics in the form of ceftriaxone. Can with pain management and follow-up urine culture report. Continue with breathing treatments and home medications including Eliquis. Patient does have right hydroureter and perinephric and periureteral inflammatory stranding likely due to passage of stone. Urology is following.. Continue to follow closely. Time with Patient: Greater than 30
--- NOTE | 2020-03-11 22:42 | P.PN ---
Subjective Progress Note Date: 03/11/20 Principal diagnosis: Acute pyonephritis Patient is a 59-year-old female with a known history of hypertension, hyperlipidemia, paroxysmal atrial fibrillation on anticoagulation deepness, history of mitral valve prolapse and history of NC, memory impairment and obstructive sleep apnea, hypothyroidism degenerative disc disease and multiple sclerosis, IBS and other multiple medical problems including anxiety/PTSD and previous history of smoking presents to ER with complaints of abdominal pain mainly in the right lower quadrant pain radiating down the groin area. Patient has been on and off pain for the past few days. Patient states that about 2 weeks ago she passed a kidney stone but she did not seek any medical care at that time. Patient has been doing well since then. Last night patient developed severe pain in the right lower quadrant 10 out of 10 in severity and resents to ER by EMS. on and off. Pain is associate with nausea and no episodes of vomiting. Denied any diarrhea. Patient was febrile on admission. Denies any cough or sputum production. No shortness of breath. No headache or dizziness or lightheadedness. Lab laboratory showed WBC 11.8, hemoglobin 13.1 and platelets 174, sodium 135, potassium 4.0, BUN 21 creatinine 0.78 Urinalysis showed cloudy with trace leukocytes present 15 WBCs T-max was 102.9 on admission. Chest x-ray showed chronic changes without acute pulmonary process CT of the abdomen pelvis showed there is haziness of the right kidney, moderate right hydroureter and perinephric and periureteral inflammatory stranding. Nor mal appearance of the urinary bladder and no urolithiasis. Findings made upper tract infection such as pyelonephritis. Diverticulosis Benign left adrenal adenoma Cholelithiasis 03/10/2020 Patient is currently resting in the bed comfortably. No complaints of chest pain or shortness of breath. T-max was 102.2 this morning. Otherwise blood cultures grew gram-negative bacilli as well as urine cultures. ID was consulted. Currently being continued on ceftriaxone 1 g daily. Patient states that her abdominal pain is better today. Denies any dysuria or hematuria. No complaints of chest pain or shortness of breath. 03/11/2020 Patient is currently sitting in the chair. Abdominal pain and right lower quadrant pain is much improved. Patient still having intermittent fevers. Patient was seen by urology and repeat renal ultrasound was done which showed resolution of the previous right hydronephrosis. Repeat blood cultures were ordered. Currently on ceftriaxone changed to 2 g daily. ID is on board. Current medications reviewed. Objective - Vital Signs Vital signs: Vital Signs Temp 98.7 F 03/11/20 22:23 Pulse 59 L 03/11/20 19:48 Resp 16 03/11/20 19:48 BP 105/65 03/11/20 19:48 Pulse Ox 96 03/11/20 19:48 Intake & Output 03/11/20 03/11/20 03/12/20 06:59 18:59 06:59 Intake Total 240 Output Total 500 500 Balance -500 -500 240 Intake: Oral 240 Output: Urine 500 500 Other: Voiding Method Toilet Toilet Diaper # Voids 2 3 1 - Exam PHYSICAL EXAMINATION: Patient is lying in the bed comfortably, no acute distress, awake alert and oriented.. HEENT: Normocephalic. Neck is supple. Pupils reactive. Nostrils clear. Oral cavity is moist. Ears reveal no drainage. Neck reveals no JVD, carotid bruits, or thyromegaly. CHEST EXAMINATION: Trachea is central. Symmetrical expansion. Lung gerber clear to auscultation and percussion. CARDIAC: Normal S1, S2 with no gallops. No murmurs ABDOMEN: Soft. Right lower quadrant and groin tenderness. Bowel sounds normal. No organomegaly. No abdominal bruits. Extremities: reveal no edema. No clubbing or cyanosis Neurologically awake, alert, oriented x3 with well-coordinated movements. Mild cognitive impairment. No focal deficits noted Skin: No rash or skin lesions. Psychiatric: Coperative. Nonsuicidal Musculoskeletal: No joint swelling or deformity. Normal range of motion. - Labs CBC & Chem 7: 03/10/20 05:45 03/10/20 05:45 Labs: Microbiology - Last 24 Hours (Table) 03/10/20 17:44 Blood Culture - Preliminary Blood No Growth after 24 hours 03/09/20 06:54 Urine Culture - Final Urine,Voided Escherichia coli 03/09/20 21:54 Blood Culture - Preliminary Blood No Growth after 24 hours 03/09/20 05:51 Blood Culture Gram Stain - Final Blood Blood Culture - Final Escherichia coli Assessment and Plan Assessment: E. coli bacteremia likely from pyelonephritis. Acute pyelonephritis With urine culture showing E. coli Right lower quadrant pain radiating down the groin due to possible passage of stone. Moderate right hydroureter. History of diverticulosis Paroxysmal atrial fibrillation on anticoagulation with Eliquis Chronic CHF with Diastolic dysfunction COPD not in exacerbation Hypertension Hyperlipidemia History of NC History of mitral valve prolapse Multiple sclerosis Degenerative disc disease IBS History of renal stones and gallstones History of appendectomy Hypothyroidism Chronic back pain Obstructive sleep apnea on CPAP at home Anxiety/PTSD Previous history of smoking DVT prophylaxis patient is already on full anticoagulation Plan: Patient will be continued on IV hydration and antibiotics in the form of ceftriaxone. Can with pain management and follow-up urine culture report. Continue with breathing treatments and home medications including Eliquis. Patient does have right hydroureter and perinephric and periureteral inflammatory stranding likely due to passage of stone. Urology is following.. Continue to follow closely. Time with Patient: Greater than 30
[2020-03-12] MEDS: DOFETILIDE 125 MCG CAP PO SCH ×2 (04:57→15:52)
[2020-03-12] MEDS: ASCORBIC ACID 500 MG TAB PO SCH ×2 (04:57→15:51)
[2020-03-12] MEDS: PANTOPRAZOLE 40 MG TABLET PO SCH ×2 (04:57→15:51)
[2020-03-12] MEDS: GABAPENTIN 300 MG CAP PO SCH ×3 (04:57→15:52)
[2020-03-12] MEDS: LEVOTHYROXINE 75 MCG TAB PO SCH (04:57)
[2020-03-12] MEDS: FERROUS SULFATE 325 MG TAB PO SCH (04:57)
[2020-03-12] MEDS: CALCIUM CARB-VIT D 500MG-200UN 1 EACH TAB PO SCH (04:57)
[2020-03-12] MEDS: FUROSEMIDE 40 MG TAB PO SCH (04:57)
[2020-03-12] MEDS: APIXABAN 5 MG TAB PO SCH ×2 (04:57→15:51)
[2020-03-12] MEDS: METOPROLOL TARTRATE 50 MG TAB PO SCH ×2 (04:57→15:52)
[2020-03-12] MEDS: SODIUM CHLORIDE 0.9% 1,000 ML IV SCH ×2 (04:58→15:59)
[2020-03-12] MEDS: oxyCODONE-APAP 7.5-325MG 1 EACH TAB PO PRN ×3 (05:03→15:53)
[2020-03-12] MEDS: BACLOFEN 10 MG TAB PO PRN ×3 (05:03→15:52)
[2020-03-12 08:05] LABS: Basophils % (A) 0 %; Eosinophils # (A) 0.1 k/uL (0-0.7); Eosinophils % (A) 2 %; HCT 36.2 % (34.0-46.0); HGB 11.9 gm/dL (11.4-16.0); Lymphocytes % (A) 35 %; MCH 30.7 pg (25.0-35.0); MCHC 32.8 g/dL (31.0-37.0); MCV 93.6 fL (80.0-100.0); Mean Platelet Volume 8.7; Monocytes # (A) 0.5 k/uL (0-1.0); Monocytes % (A) 9 %; Neutrophils # (A) 2.8 k/uL (1.3-7.7); Neutrophils % (A) 50 %; Platelet Count 179 k/uL (150-450); RBC 3.87 m/uL (3.80-5.40); RDW 14.1 % (11.5-15.5); WBC 5.6 k/uL (3.8-10.6)
[2020-03-12 08:23] LABS: African American GFR (CKD) >90 (>60 ml/min/1.73 sqM); Anion Gap 3 mmol/L; Blood Urea Nitrogen 11 mg/dL (7-17); Calcium 8.8 mg/dL (8.4-10.2); Carbon Dioxide 28 mmol/L (22-30); Chloride 109 mmol/L (98-107); Glucose 112 mg/dL (74-99); Non-African American GFR(CKD) >90 (>60 ml/min/1.73 sqM); Potassium 4.2 mmol/L (3.5-5.1); Sodium 140 mmol/L (137-145)
[2020-03-12] MEDS: MAGNESIUM OXIDE 400 MG TAB PO SCH (09:14)
[2020-03-12] MEDS: ATORVASTATIN 40 MG TAB PO SCH (09:14)
[2020-03-12] MEDS: LOSARTAN 50 MG TAB PO SCH (09:15)
[2020-03-12] MEDS: SPIRONOLACTONE 25 MG TAB PO SCH (09:15)
[2020-03-12] MEDS: CHOLECALCIFEROL 1,000 UNIT TAB PO SCH (09:15)
[2020-03-12] MEDS: IBUPROFEN 400 MG TAB PO PRN (09:27)
[2020-03-12 09:39] VITALS: RESP 16
[2020-03-12 15:51] VITALS: BP 112/69; PULSE 60; TEMP 97.5
[2020-03-12] MEDS: CYANOCOBALAMIN 500 MCG TAB PO SCH (15:52)
[2020-03-12] MEDS: MULTIVITAMINS, THERA 1 EACH TAB PO SCH (15:52)
--- NOTE | 2020-03-12 15:55 | PN ---
PROGRESS NOTE DATE OF SERVICE: 03/12/2020 REASON FOR FOLLOWUP: E coli urinary tract infection and bacteremia. INTERVAL HISTORY: The patient is currently afebrile. The patient is breathing comfortably. Patient denies having any chest pain or shortness of breath. No nausea. No abdominal pain, no diarrhea. PHYSICAL EXAMINATION: Blood pressure 109/50, pulse of 58, temperature 98, she is 95% on room air. General description is a middle-aged female, in the bed in no distress. LABS: Hemoglobin 9.1, white count of 5.7, BUN of 9, creatinine 0.66. DIAGNOSTIC IMPRESSION AND PLAN: Patient with E. coli bacteremia secondary to complicated UTI, in addition followup blood culture has been negative. Patient is currently on Rocephin. Plan to finish therapy with oral Cipro b.i.d. for another 10 days and a close outpatient followup. KRISTA / EPHRAIM: [id number] /
[2020-03-12] MEDS: NON FORMULARY DRUG (Calcium/Magnesium/Zinc [Calcium-Magnesium-Zinc Tablet] 1 TAB) PO SCH (15:59)
--- NOTE | 2020-03-15 12:24 | CDI ---
Documentation Clarification Form Date: 03/15/20 From: Homa Piedra CCS Phone: If you have a question about this query, please contact Ana Lilia Clarke, Small Engine Specialist at [phone] between 8am and 5pm. Admit Date: 03/09/20 Discharge Date:03/12/20 Patient Name: Arielle May Visit Number: [id number] ATTENTION: The Clinical Documentation Specialists (CDI) and [facility] Coding Staff appreciate your assistance in clarifying documentation. Please respond to the clarification below the line at the bottom and electronically sign. The CDI & [facility] Coding staff will review the response and follow-up if needed. Please note: Queries are made part of the Legal Health Record. If you have any questions, please contact the author of this message via ITS. Dear Dr. Cortes, Conflicting documentation has been found in the medical record: ID Consult documents: Patient with gram-negative bacteremia source is likely related in this patient presented to hospital with sepsis with fever and elevated white count and positive UA source is likely complicated urinary tract infection with right- sided hydroureter and pyelonephritis, likely enteric gram-negative pathogen such as E. coli PN 03/11 documents: E. coli bacteremia likely from pyelonephritis. History/Risk Factors: Pyonephrosis, CHF, HTN, MS, AFIB, Hx urinary calculus Clinical Indicators: Temp 102.9, WBC 11.8 Labs: WBC 11.8, 8.9, 5.6- Lactic Acid 1.4 Vitals: Temp 102.9, [place] 72, BP 124/62, O2 Sat 96 Microbiology: Blood Cx- Escherichia coli, Urine Cx - Escherichia coli Treatment: Rocephin 1,000mg IVP ONCE STA, Rocephin 1 gm IVPB Q 24HR Consult: Willis In your opinion, what is the most clinically appropriate diagnosis for this patient? Sepsis Bacteremia Other explanation of clinical findings Unable to determine (no explanation for clinical findings) SIRS Criteria (2 or more of the following may indicate SIRS): -Temperature < 96.8F (36C) or > 101.0F (38.3C) -Heart Rate > 90 bpm -Respiratory Rate > 20 breaths/min or PaCO2 < 32 mmHg -White Blood Cell Count > 12,000 or < 4,000 cells/mm3 or > 10% bands -Lactate >2.0 mmol/L (>4.0 is equivalent to septic shock) E. coli bacteremia (E. coli is gram-negative bacteria) likely from Acute pyelonephritis. MTDD
== END 2020-03-12 20:04 | disposition home or self-care (01) | DRG 690 ==
LOC: EC 05:33 → 6PED 09:46
PROVIDERS: ADMIT Hospitalist; ATTEND Hospitalist
DX: N13.6 Pyonephrosis (principal); R78.81 Bacteremia; I50.32 Chronic diastolic (congestive) heart failure; Z68.41 Body mass index [BMI] 40.0-44.9, adult; Z20.828 Contact with and (suspected) exposure to other viral communicable diseases; I11.0 Hypertensive heart disease with heart failure; I48.0 Paroxysmal atrial fibrillation; J43.9 Emphysema, unspecified; G35 Multiple sclerosis; G89.29 Other chronic pain; I34.1 Nonrheumatic mitral (valve) prolapse; E78.5 Hyperlipidemia, unspecified; M19.90 Unspecified osteoarthritis, unspecified site; K21.9 Gastro-esophageal reflux disease without esophagitis; E03.9 Hypothyroidism, unspecified; G47.33 Obstructive sleep apnea (adult) (pediatric); K58.9 Irritable bowel syndrome, unspecified; M51.36 Other intervertebral disc degeneration, lumbar region; K80.20 Calculus of gallbladder without cholecystitis without obstruction; F43.10 Post-traumatic stress disorder, unspecified; F41.9 Anxiety disorder, unspecified; K57.90 Diverticulosis of intestine, part unspecified, without perforation or abscess without bleeding; D35.02 Benign neoplasm of left adrenal gland; N39.41 Urge incontinence; E66.9 Obesity, unspecified; B96.20 Unspecified Escherichia coli [E. coli] as the cause of diseases classified elsewhere; I25.2 Old myocardial infarction; Z79.01 Long term (current) use of anticoagulants; Z79.899 Other long term (current) drug therapy; Z79.890 Hormone replacement therapy; Z79.891 Long term (current) use of opiate analgesic; Z90.710 Acquired absence of both cervix and uterus; Z90.49 Acquired absence of other specified parts of digestive tract; Z87.19 Personal history of other diseases of the digestive system; Z87.01 Personal history of pneumonia (recurrent); Z87.442 Personal history of urinary calculi; Z98.890 Other specified postprocedural states; Z87.891 Personal history of nicotine dependence; Z80.1 Family history of malignant neoplasm of trachea, bronchus and lung; Z80.42 Family history of malignant neoplasm of prostate; Z82.49 Family history of ischemic heart disease and other diseases of the circulatory system; Z82.3 Family history of stroke
CPT/HCPCS: 36415; 71045; 74177; 76770; 80048; 80053; 81001; 83605; 84484; 85025; 85610; 85730; 87040; 87077; 87086; 87186; 93005; 94640; 94760; 96374; 99285

== ENCOUNTER → 2020-08-13 | Outpatient (CLI) | payer BC ==
[2020-08-14 02:18] LABS: Anion Gap 12.6 mmol/L (4.00-12.00); BUN/Creat Ratio 16.67 Ratio (12.00-20.00); Calcium 10.1 mg/dL (8.7-10.3); Carbon Dioxide 23.4 mmol/L (21.6-31.8); Potassium 4.5 mmol/L (3.5-5.5)
== END | disposition home or self-care (01) ==
LOC: LABWHC1 15:40
PROVIDERS: ATTEND Psychiatry & Neurology Neurology
DX: I48.91 Unspecified atrial fibrillation (principal)
CPT/HCPCS: 36415; 80048; 83735

== ENCOUNTER → 2021-04-28 | Outpatient (CLI) | payer BC ==
--- NOTE | 2021-04-29 08:29 | NM ---
EXAMINATION TYPE: NM DatScan Brain SPECT DATE OF EXAM: 04/28/2021 COMPARISON: NONE HISTORY: History of tremors, R 25.1 TECHNIQUE: 10 drops of Lugol's solution was administered 1 hour prior to injection as a thyroid bloc joe agent. After the administration of 4.3 mCi I-123 Ioflupane DaTscan. Images obtained [address] injection. SPECT images of the brain were acquired with axial and coronal reconstructions. FINDINGS: Abnormal decreased uptake is noted within the striata more so on the left than on the right. Normal-s haped uptake is absent posteriorly. IMPRESSION: Abnormal CARLO scan.
== END | disposition home or self-care (01) ==
LOC: RADNMMAIN 10:49
PROVIDERS: ATTEND Psychiatry & Neurology Neurology
DX: R94.02 Abnormal brain scan (principal); R25.1 Tremor, unspecified
CPT/HCPCS: 78803; A9584

== ENCOUNTER 2021-09-30 07:27 | Emergency (ER) | payer BC ==
[2021-09-30] MEDS ORDERED: KETOROLAC 15 MG/ML 1 ML VIAL IVP STA (07:44)
[2021-09-30] MEDS ORDERED: SODIUM CHLORIDE 0.9% 500 ML 500 ML IV STA (07:44)
--- NOTE | 2021-09-30 07:47 | ED ---
General Adult HPI - General Stated complaint: Abdominal Pain Time Seen by Provider: 09/30/21 07:27 Source: patient, RN notes reviewed, old records reviewed - History of Present Illness Initial comments: This is a 61-year-old female who presented to the emergency department who complains of abdominal pain and left flank. Patient states she has a history of diverticulosis and diverticulitis. Patient states she had a CAT scan in July when this pain began and it did not show anything. Patient states the pain is constant since July but it slowly getting worse per patient denies any nausea vomiting or diarrhea. Patient states she has no pain with palpating the area. Patient denies any dysuria hematuria urinary frequency. Patient denies any recent fever or chills. Patient denies any injury to the area. Patient denies chest pain or difficulty breathing or recent cough. Patient denies any swelling to her legs or calf tenderness. - Related Data Home Medications Medication Instructions Recorded Confirmed Lansoprazole [Prevacid] 30 mg PO BID@0400,159901/20/14 03/09/20 Apixaban [Eliquis] 5 mg PO BID@0400,159903/28/16 03/09/20 Atorvastatin [Lipitor] 40 mg PO DAILY@1000 03/28/16 03/09/20 Calcium Carbonate/Vitamin D3 1 tab PO DAILY@39903/28/16 03/09/20 [Calcium 600-Vit D3 5 Mcg (200 Iu)] Ferrous Sulfate [Feosol] 325 mg PO DAILY@04003/28/16 03/09/20 Furosemide [Lasix] 40 mg PO DAILY@04003/28/16 03/09/20 Gabapentin 600 mg PO QID@,,,03/28/16 03/09/20 [place]-3 Fatty Acids/Fish Oil [Fish 1 cap PO DAILY@1000 03/28/16 03/09/20 Oil 1,000 mg Softgel] Baclofen [Lioresal] 20 mg PO TID@0400,1000,1599 PRN 10/03/17 03/09/20 Ascorbic Acid [Vitamin C] 500 mg PO BID@0400,1600 04/25/19 03/09/20 Calcium/Magnesium/Zinc 1 tab PO DAILY@159904/25/19 03/09/20 [Eqhexfa-Qpyqjwbbl-Nnvr Tablet] Cyanocobalamin [Vitamin B-12] 500 mcg PO DAILY@1600 04/25/19 03/09/20 Levothyroxine Sodium [Synthroid] 150 mcg PO DAILY@0400 04/25/19 03/09/20 Magnesium Oxide [Grady] 500 mg PO DAILY@99904/25/19 03/09/20 Cholecalciferol (Vitamin D3) 2,000 unit PO DAILY@99905/22/19 03/09/20 [Vitamin D3] Dofetilide [Tikosyn] 125 mcg PO BID@0400,159905/22/19 03/09/20 Multivit-Min/Iron/Folic/Lutein 1 tab PO DAILY@159905/22/19 03/09/20 [Centrum Silver Women Tablet] Albuterol Inhaler [Ventolin Hfa 2 puff INHALATION RT-Q6H PRN 12/22/19 03/09/20 Inhaler] Fluticasone Nasal [place] [Flonase 1 spray EA NOSTRIL HS 02/06/20 03/09/20 Nasal [place]] Metoprolol Tartrate [Lopressor] 50 mg PO BID@0400,159902/06/20 03/09/20 Omeprazole Magnesium [PriLOSEC OTC] 20 mg PO DAILY@04002/06/20 03/09/20 Potassium Chloride [K-Tab ER] 20 meq PO DAILY@99902/06/20 03/09/20 Spironolactone [Aldactone] 50 mg PO DAILY@99902/06/20 03/09/20 oxyCODONE HCL/ACETAMINOPHEN 1 tab PO TID@0400,1000,159902/06/20 03/09/20 [Percocet 7.5-325 mg] Losartan Potassium 100 mg PO DAILY@99903/09/20 03/09/20 Previous Rx's Medication Instructions Recorded Cefuroxime Axetil [Ceftin] 500 mg PO BID 12 Days #24 tab 03/12/20 Allergies Allergy/AdvReac Type Severity Reaction Status Date / Time No Known Allergies Allergy Verified 03/09/20 08:42 Review of Systems ROS Statement: Those systems with pertinent positive or pertinent negative responses have been documented in the HPI. ROS Other: All systems not noted in ROS Statement are negative. Past Medical History Past Medical History: Atrial Fibrillation, Chest Pain / Angina, Heart Failure, COPD, GERD/Reflux, Hyperlipidemia, Hypertension, Memory Impairment, Myocardial Infarction ([place]), Mitral Valve Prolapse (MVP), Musculoskeletal Disorder, Neurologic Disorder, Osteoarthritis (OA), Pneumonia, Sleep Apnea/CPAP/BIPAP, Thyroid Disorder Additional Past Medical History / Comment(s): "Current CHF, wearing heart monitor." Enlarged heart, irrregular heart beat-Afib, DDD, HERNIATED DISC, l esions on brain - Multiple Sclerosis, IBS, Vertigo, Emphysema. Rectal bleeding X last 2 years. Hx Kidney stones. Gallstones currently. 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 CPAP use. Hypothyroid. Chronic back pain. Last Myocardial Infarction Date:: several years ago History of Any Multi-Drug Resistant Organisms: None Reported Past Surgical History: Appendectomy, Heart Catheterization, Hysterectomy, Tonsillectomy Additional Past Surgical History / Comment(s): LASER SURG TO BACK, heart cath no stents 3-4, colonoscopy, left eye surgery. Past Anesthesia/Blood Transfusion Reactions: Motion Sickness Past Psychological History: Anxiety, PTSD Smoking Status: Former smoker Past Alcohol Use History: None Reported Past Drug Use History: None Reported - Past Family History Father Family Medical History: Cancer Additional Family Medical History / Comment(s): PROSTATE AND LUNG CANCER. Mother Family Medical History: CVA/TIA, Hypertension General Exam - General Exam Comments Initial Comments: GENERAL: Patient is well-developed and well-nourished. Patient is nontoxic and well- hydrated and is in mild distress. ENT: Neck is soft and supple. No significant lymphadenopathy is noted. Oropharynx i s clear. Moist mucous membranes. Neck has full range of motion without eliciting any pain. EYES: The sclera were anicteric and conjunctiva were pink and moist. Extraocular movements were intact and pupils were equal round and reactive to light. Eyelids were unremarkable. PULMONARY: Unlabored respirations. Good breath sounds bilaterally. No audible rales rhonchi or wheezing was noted. CARDIOVASCULAR: There is a regular rate and rhythm without any murmurs gallops or rubs. ABDOMEN: Soft and nontender with normal bowel sounds. No area caused any discomfort when I palpate her abdomen SKIN: Skin is clear with no lesions or rashes and otherwise unremarkable. NEUROLOGIC: Patient is alert and oriented x3. Cranial nerves II through XII are grossly intact. Motor and sensory are also intact. Normal speech, volume and content. Symmetrical smile. MUSCULOSKELETAL: Normal extremities with adequate strength and full range of motion. LYMPHATICS: No significant lymphadenopathy is noted PSYCHIATRIC: Normal psychiatric evaluation. Course Vital Signs 09/30/21 07:34 Pulse Rate 56 L Respiratory 14 Rate Blood Pressure 111/61 O2 Sat by Pulse 93 L Oximetry Medical Decision Making - Medical Decision Making Lab work is all normal and patient's abdomen is nontender so she will follow-up with her primary medical care doctor. - Lab Data Result diagrams: 09/30/21 07:47 09/30/21 07:47 Lab Results 09/30/21 09/30/21 09/30/21 Range/Units 07:47 07:47 07:47 WBC 8.6 (3.8-10.6) k/uL RBC 4.08 (3.80-5.40) m/uL Hgb 13.3 (11.4-16.0) gm/dL Hct 39.5 (34.0-46.0) % MCV 96.7 (80.0-100.0) fL MCH 32.5 (25.0-35.0) pg MCHC 33.6 (31.0-37.0) g/dL RDW 13.1 (11.5-15.5) % Plt Count 215 (150-450) k/uL MPV 9.1 Neutrophils % 68 % Lymphocytes % 20 % Monocytes % 6 % Eosinophils % 4 % Basophils % 1 % Neutrophils # 5.9 (1.3-7.7) k/uL Lymphocytes # 1.7 (1.0-4.8) k/uL Monocytes # 0.5 (0-1.0) k/uL Eosinophils # 0.3 (0-0.7) k/uL Basophils # 0.1 (0-0.2) k/uL Sodium 137 (137-145) mmol/L Potassium 5.1 (3.5-5.1) mmol/L Chloride 104 (98-107) mmol/L Carbon Dioxide 28 (22-30) mmol/L Anion Gap 5 mmol/L BUN 16 (7-17) mg/dL Creatinine 0.86 (0.52-1.04) mg/dL Est GFR (CKD-EPI)AfAm 84 (>60 ml/min/1.73 sqM) Est GFR (CKD-EPI)NonAf 73 (>60 ml/min/1.73 sqM) Glucose 107 H (74-99) mg/dL Plasma Lactic Acid Kalpesh (0.7-2.0) mmol/L Calcium 9.4 (8.4-10.2) mg/dL Total Bilirubin 0.7 (0.2-1.3) mg/dL AST 29 (14-36) U/L ALT 32 (4-34) U/L Alkaline Phosphatase 107 (38-126) U/L Total Protein 6.6 (6.3-8.2) g/dL Albumin 3.9 (3.5-5.0) g/dL Amylase 40 (30-110) U/L Lipase 55 (23-300) U/L Urine Color Yellow Urine Appearance Cloudy H (Clear) Urine pH 7.5 (5.0-8.0) Ur Specific [place] 1.013 (1.001-1.035) Urine Protein Negative (Negative) Urine Glucose (UA) Negative (Negative) Urine Ketones Negative (Negative) Urine Blood Negative (Negative) Urine Nitrite Negative (Negative) Urine Bilirubin Negative (Negative) Urine Urobilinogen <2.0 (<2.0) mg/dL Ur Leukocyte Esterase Negative (Negative) Urine RBC <1 (0-5) /hpf Ur Squamous Epith Cells <1 (0-4) /hpf 09/30/21 Range/Units 07:47 WBC (3.8-10.6) k/uL RBC (3.80-5.40) m/uL Hgb (11.4-16.0) gm/dL Hct (34.0-46.0) % MCV (80.0-100.0) fL MCH (25.0-35.0) pg MCHC (31.0-37.0) g/dL RDW (11.5-15.5) % Plt Count (150-450) k/uL MPV Neutrophils % % Lymphocytes % % Monocytes % % Eosinophils % % Basophils % % Neutrophils # (1.3-7.7) k/uL Lymphocytes # (1.0-4.8) k/uL Monocytes # (0-1.0) k/uL Eosinophils # (0-0.7) k/uL Basophils # (0-0.2) k/uL Sodium (137-145) mmol/L Potassium (3.5-5.1) mmol/L Chloride (98-107) mmol/L Carbon Dioxide (22-30) mmol/L Anion Gap mmol/L BUN (7-17) mg/dL Creatinine (0.52-1.04) mg/dL Est GFR (CKD-EPI)AfAm (>60 ml/min/1.73 sqM) Est GFR (CKD-EPI)NonAf (>60 ml/min/1.73 sqM) Glucose (74-99) mg/dL Plasma Lactic Acid Kalpesh 1.7 (0.7-2.0) mmol/L Calcium (8.4-10.2) mg/dL Total Bilirubin (0.2-1.3) mg/dL AST (14-36) U/L ALT (4-34) U/L Alkaline Phosphatase (38-126) U/L Total Protein (6.3-8.2) g/dL Albumin (3.5-5.0) g/dL Amylase (30-110) U/L Lipase (23-300) U/L Urine Color Urine Appearance (Clear) Urine pH (5.0-8.0) Ur Specific [place] (1.001-1.035) Urine Protein (Negative) Urine Glucose (UA) (Negative) Urine Ketones (Negative) Urine Blood (Negative) Urine Nitrite (Negative) Urine Bilirubin (Negative) Urine Urobilinogen (<2.0) mg/dL Ur Leukocyte Esterase (Negative) Urine RBC (0-5) /hpf Ur Squamous Epith Cells (0-4) /hpf Disposition Clinical Impression: Flank pain Disposition: HOME SELF-CARE Condition: Good Instructions (If sedation given, give patient instructions): Flank Pain (ED) Is patient prescribed a controlled substance at d/c from ED?: No Referrals: Karlo Carrion DO [Primary Care Provider] - 1-2 days Time of Disposition: 09:54
[2021-09-30 08:05] LABS: Basophils # (A) 0.1 k/uL (0-0.2); Basophils % (A) 1 %; Eosinophils # (A) 0.3 k/uL (0-0.7); Eosinophils % (A) 4 %; HCT 39.5 % (34.0-46.0); HGB 13.3 gm/dL (11.4-16.0); Lymphocytes # (A) 1.7 k/uL (1.0-4.8); Lymphocytes % (A) 20 %; MCH 32.5 pg (25.0-35.0); MCHC 33.6 g/dL (31.0-37.0); MCV 96.7 fL (80.0-100.0); Mean Platelet Volume 9.1; Monocytes # (A) 0.5 k/uL (0-1.0); Monocytes % (A) 6 %; Neutrophils # (A) 5.9 k/uL (1.3-7.7); Neutrophils % (A) 68 %; Platelet Count 215 k/uL (150-450); RBC 4.08 m/uL (3.80-5.40); RDW 13.1 % (11.5-15.5); WBC 8.6 k/uL (3.8-10.6)
[2021-09-30 08:08] LABS: Appearance,Urine Cloudy (Clear); Bilirubin,Urine Negative (Negative); Blood,Urine Negative (Negative); Color,Urine Yellow; Glucose,Urine (UA) Negative (Negative); Ketones,Urine Negative (Negative); Leukocyte Esterase,Urine Negative (Negative); Nitrite,Urine Negative (Negative); PH, Urine 7.5 (5.0-8.0); Protein,Urine Negative (Negative); RBC,Urine <1 /hpf (0-5); Specific Gravity,Urine 1.013 (1.001-1.035); Squamous Epithelial Cell,Urine <1 /hpf (0-4); Urobilinogen,Urine <2.0 mg/dL (<2.0)
[2021-09-30 08:21] LABS: Albumin 3.9 g/dL (3.5-5.0); Calcium 9.4 mg/dL (8.4-10.2); Potassium 5.1 mmol/L (3.5-5.1); Total Bilirubin 0.7 mg/dL (0.2-1.3); Total Protein 6.6 g/dL (6.3-8.2)
[2021-09-30 10:20] VITALS: BP 95/74; PULSE 67; RESP 12; TEMP 97.1
== END 2021-09-30 10:39 | disposition home or self-care (01) ==
LOC: EC 07:27
DX: R10.9 Unspecified abdominal pain (principal); J44.9 Chronic obstructive pulmonary disease, unspecified; I10 Essential (primary) hypertension; I25.2 Old myocardial infarction; K21.9 Gastro-esophageal reflux disease without esophagitis; Z87.891 Personal history of nicotine dependence
CPT/HCPCS: 36415; 80053; 82150; 83605; 83690; 85025; 81001; 99284; 96374; J1885

== ENCOUNTER 2021-10-13 09:58 | Day surgery (SDC) | payer BC ==
[2021-10-11 12:24] VITALS: BMI 39.9
[2021-10-13 10:42] VITALS: TEMP 96.9
[2021-10-13] MEDS ORDERED: PROPOFOL 10 MG/ML 20 ML VIAL IV ONE (11:48)
[2021-10-13] MEDS ORDERED: LIDOCAINE 1% INJ 10MG/ML (20 ML MDV) ONE (11:48)
--- NOTE | 2021-10-13 12:12 | P.PCN ---
Date of Procedure: 10/13/21 Procedure(s) Performed: BRIEF HISTORY: Patient is a 61-year-old pleasant female scheduled for an elective colonoscopy as a part of evaluation of intermittent lower abdominal pain, change in bowel habits and rectal bleeding for the last 2 months duration. PROCEDURE PERFORMED: Colonoscopy snare polypectomy. PREOPERATIVE DIAGNOSIS: Intermittent rectal bleeding, lower abdominal pain and change in bowel habits. IV sedation per Anesthesia. PROCEDURE: After informed consent was obtained, the patient, was brought into the endoscopy unit. IV sedation was administered by Anesthesia under continuous monitoring. Digital rectal examination was normal. Initially the Olympus CF-160 flexible video colonoscope was then inserted in the rectum, gradually advanced into the cecum without any difficulty. Careful examination was performed as the scope was gradually being withdrawn. Ileocecal valve and the appendiceal orifice were visualized and appeared normal. Prep was excellent. Mucosa of the cecum had millimeters and 1.5 centimeter broad-based polyp that was removed by piecemeal snare polypectomy., ascending colon, transverse colon, descending colon, sigmoid colon, and rectum appeared normal. Scattered sigmoid diverticulosis. Retroflexion was performed in the rectum and 2 internal hemorrhoids were seen. The patient tolerated the procedure well. IMPRESSION: 5 mm 1.5 cm broad-based cecal polyp status post polypectomy scattered sigmoid diverticulosis Grade 2 internal hemorrhoids RECOMMENDATIONS: Findings of this examination were discussed with the patient as well as a family. She was advised to follow with the biopsy results. if the biopsy reveals adenoma she can have a repeat colonoscopy in 3 years. She was advised to be a high-fiber diet, take fiber supplements a regular basis and avoid straining and constipation.].
[2021-10-13 12:31] VITALS: BP 135/79; PULSE 56; RESP 20
== END 2021-10-13 13:05 | disposition home or self-care (01) ==
LOC: ORWHC2ENDO 09:58
PROVIDERS: ATTEND Internal Medicine Gastroenterology
DX: D12.0 Benign neoplasm of cecum (principal); K57.30 Diverticulosis of large intestine without perforation or abscess without bleeding; K64.1 Second degree hemorrhoids; Z79.01 Long term (current) use of anticoagulants; Z79.890 Hormone replacement therapy; Z79.899 Other long term (current) drug therapy; I25.10 Atherosclerotic heart disease of native coronary artery without angina pectoris; I11.0 Hypertensive heart disease with heart failure; I50.9 Heart failure, unspecified; E78.5 Hyperlipidemia, unspecified; I48.91 Unspecified atrial fibrillation; I34.1 Nonrheumatic mitral (valve) prolapse; G47.33 Obstructive sleep apnea (adult) (pediatric); Z87.442 Personal history of urinary calculi; G20 Parkinson's disease; Z86.73 Personal history of transient ischemic attack (TIA), and cerebral infarction without residual deficits; R42 Dizziness and giddiness; M19.90 Unspecified osteoarthritis, unspecified site; R41.3 Other amnesia; R25.1 Tremor, unspecified; K21.9 Gastro-esophageal reflux disease without esophagitis; K58.9 Irritable bowel syndrome, unspecified; Z79.891 Long term (current) use of opiate analgesic
CPT/HCPCS: 88305; 45385; J2001; J2704

== ENCOUNTER → 2021-10-26 | Outpatient (CLI) | payer BC ==
--- NOTE | 2021-10-26 15:02 | US ---
EXAMINATION TYPE: US pelvic limited DATE OF EXAM: 10/26/2021 COMPARISON: NONE CLINICAL HISTORY: N39.498 urinary incontinence. TECHNIQUE: Transabdominal (TA). Date of LMP: Hysterectomy, bilateral oophorectomy 10+ years ago EXAM MEASUREMENTS: Uterus: Surgically absent Endometrial Stripe: Surgically absent Right Ovary: Surgically absent Left Ovary: Surgically absent Bladder: wnl. Somewhat limited with incomplete distention. Post Void: no fluid seen IMPRESSION: 1. No suspicious ultrasound changes post hysterectomy pelvic ultrasound.
== END | disposition home or self-care (01) ==
LOC: RADUSWWP 12:46
PROVIDERS: ATTEND Family Medicine
DX: N39.498 Other specified urinary incontinence (principal)
CPT/HCPCS: 76857

== ENCOUNTER → 2023-06-08 | Outpatient (CLI) | payer BC ==
--- NOTE | 2023-06-09 08:14 | XR ---
EXAMINATION TYPE: XR chest 2V DATE OF EXAM: 06/08/2023 COMPARISON: 03/09/2020 TECHNIQUE: PA and lateral views submitted. HISTORY: Shortness of breath FINDINGS: The lungs are clear and there is no pneumothorax, pleural effusion, or focal pneumonia. Heart size normal and no overt failure. Osseous structures demonstrate hypertrophic and degenerative changes of the spine. AC joint arthropathy. Biapical pleural thickening. Chronic right lateral rib cage orbit. IMPRESSION: 1. No acute process.
== END | disposition home or self-care (01) ==
LOC: RADXRYALE 14:43
PROVIDERS: ATTEND Physician Assistant
DX: R06.02 Shortness of breath (principal)
CPT/HCPCS: 71046

== ENCOUNTER → 2023-08-28 | Outpatient (CLI) | payer BC ==
--- NOTE | 2023-08-30 09:37 | MR ---
MRI BRAIN WITH CONTRAST CLINICAL HISTORY: Multiple sclerosis follow-up TECHNIQUE: Multiplanar, multisequence imaging of the brain and brainstem is performed without and wit h IV contrast, 14.5 cc of Gadolinium is administered intravenously. Demyelinating disease protocol w ith additional Sagittal Flair sequence performed. Comparison: 10/22/2015 FINDINGS: T2 Lesions Present : Yes Approximate Number of Lesions: Approximately 50 Locations Identified : Pericallosal, Periventricular, Juxtacortical Size of Largest Lesion(s): 1. Posterior right rodriguez radiata measuring 1.4 cm in greatest dimension 2 posterior left subcortical region measuring 7 mm. Enhancing Lesion(s) Present: No Change from Prior: Stable Diffusion weighted images demonstrate no evidence of a recent infarct or other diffusion abnormality. There is no worrisome extra-axial fluid collection. The ventricular system and cisternal spaces ar e normal in size and appearance. The brain volume is age appropriate. Midline structures demonstrate normal morphology. The craniocervical junction appears within normal limits. Post contrast images demonstrate no abnormal enhancement. The dural venous sinuses appear pa tent. The visualized sinuses are clear and the globes are intact. IMPRESSION: Stable features of multiple sclerosis. EXAMINATION TYPE: MR brain/cspine wo/w DATE OF EXAM: 08/28/2023 6:27 PM COMPARISON: NONE HISTORY: Pain and weakness in arms and legs-Hx MS CONTRAST: The patient was injected with 14.5 mL intravenous Gadavist gadolinium contrast. Multiplanar MultiSpin echo imaging of the cervical spine was performed. Patient motion limits portio ns of the study. C2-C3: No evidence for degenerative disc disease. No disc bulge/herniation or protrusion. No Canal stenosis. Foramina are patent bilaterally. C3-C4: Mild decreased signal and loss of height compatible degenerative disc disease. Posterior disc bulge with mild effacement ventral thecal sac. No evidence for disc herniation or central stenosis. R ight foraminal encroachment. C4-C5: Mild decreased signal and loss of height compatible degenerative disc disease. Posterior disc bulge with mild effacement ventral thecal sac. No evidence for disc herniation or central stenosis. M ild bilateral neural foraminal encroachment. C5-C6: Mild decreased signal and loss of height compatible degenerative disc disease. Posterior disc bulge with mild effacement ventral thecal sac. No evidence for disc herniation or central stenosis. M ild bilateral neural foraminal encroachment. C6-C7:Mild decreased signal and loss of height compatible degenerative disc disease. Posterior disc b ulge with mild effacement ventral thecal sac. No evidence for disc herniation. Borderline central osmar nosis. Mild bilateral neural foraminal encroachment. C7-T1: No evidence for degenerative disc disease. No disc bulge/herniation or protrusion. No Canal stenosis. Foramina are patent bilaterally. No cervical spine fracture. There is normal alignment. Cervical spinal cord is of normal signal. C raniovertebral junction relationships are within normal limits. No pathologic enhancement. IMPRESSION: 1. Multilevel degenerative disc disease. Exam limitation given patient motion. No distinct cervical s jeannette cord plaque or enhancing lesion.
== END | disposition home or self-care (01) ==
LOC: RADMRIMAIN 16:32
PROVIDERS: ATTEND Psychiatry & Neurology Neurology
DX: G35 Multiple sclerosis (principal); M47.26 Other spondylosis with radiculopathy, lumbar region; M50.10 Cervical disc disorder with radiculopathy, unspecified cervical region
CPT/HCPCS: 70553; 72156; A9585

== ENCOUNTER 2024-10-01 18:05 | Inpatient (IN) | payer MEDICARE, BC ==
[2024-10-01 19:18] LABS: ALT 23 U/L (4-34); AST 22 U/L (14-36); African American GFR (CKD) >90 (>60 ml/min/1.73 sqM); Albumin 4.2 g/dL (3.5-5.0); Alkaline Phosphatase 102 U/L (38-126); Anion Gap 10 mmol/L; Blood Urea Nitrogen 26 mg/dL (7-17); Calcium 9.7 mg/dL (8.4-10.2); Carbon Dioxide 29 mmol/L (22-30); Chloride 101 mmol/L (98-107); Glucose 115 mg/dL (74-99); Magnesium 2.1 mg/dL (1.6-2.3); Non-African American GFR(CKD) >90 (>60 ml/min/1.73 sqM); Potassium 4.4 mmol/L (3.5-5.1); Sodium 140 mmol/L (137-145); Total Bilirubin 0.5 mg/dL (0.2-1.3); Total Protein 6.6 g/dL (6.3-8.2)
[2024-10-01 19:19] LABS: Partial Thromboplastin Time 22.9 sec (22.0-30.0); Prothrombin Time 10.8 sec (10.0-12.5)
[2024-10-01 19:25] LABS: NT-Pro-B-Type Natriuretic Pept 39 pg/mL
[2024-10-01] MEDS ORDERED: VANCOMYCIN IV PER PHARMACY 1 EACH MISC MISCELLANE PRN (19:30)
--- NOTE | 2024-10-01 19:32 | XR ---
EXAMINATION TYPE: XR chest 2V DATE OF EXAM: 10/01/2024 7:26 PM COMPARISON: Chest radiographs from 06/08/2023 CLINICAL INDICATION: Female, 64 years old with history of difficulty breathing; [facility] TECHNIQUE: XR chest 2V Frontal and lateral views of the chest. FINDINGS: Lungs/Pleura: There is no evidence of pleural effusion, focal consolidation, or pneumothorax. Pulmonary vascularity: Unremarkable. Heart/mediastinum: Cardiomediastinal silhouette is unremarkable. Musculoskeletal: No acute osseous pathology. IMPRESSION: No acute cardiopulmonary disease/process. [facility], , 10/01/2024 7:30 PM
[2024-10-01 19:38] LABS: Influenza A Not Detected (Not Detectd); Influenza B Not Detected (Not Detectd); RSV Not Detected (Not Detectd)
[2024-10-01 19:47] LABS: Basophils % (A) 0 %; Eosinophils # (A) 0.1 k/uL (0-0.7); Eosinophils % (A) 1 %; HCT 41.3 % (34.0-46.0); HGB 13.3 gm/dL (11.4-16.0); Lymphocytes # (A) 0.8 k/uL (1.0-4.8); Lymphocytes % (A) 10 %; MCH 31.3 pg (25.0-35.0); MCHC 32.2 g/dL (31.0-37.0); MCV 97.5 fL (80.0-100.0); Mean Platelet Volume 8.5; Monocytes # (A) 0.5 k/uL (0-1.0); Monocytes % (A) 7 %; Neutrophils # (A) 6.2 k/uL (1.3-7.7); Neutrophils % (A) 81 %; Platelet Count 218 k/uL (150-450); RBC 4.23 m/uL (3.80-5.40); WBC 7.7 k/uL (3.8-10.6)
[2024-10-01] MEDS ORDERED: NALOXONE 0.4 MG/ML 1 ML VIAL IV PRN (20:01)
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
[2024-10-01] MEDS: FUROSEMIDE 10 MG/ML 4 ML VIAL IV STA (20:17)
[2024-10-01 20:42] LABS: Amorphous Sediment,Urine Rare /hpf; Appearance,Urine Cloudy (Clear); Bacteria,Urine Occasional /hpf; Bilirubin,Urine Negative (Negative); Blood,Urine Trace (Negative); Color,Urine Light Yellow; Glucose,Urine (UA) Negative (Negative); Ketones,Urine Negative (Negative); Leukocyte Esterase,Urine Negative (Negative); Mucus,Urine Rare /hpf; Nitrite,Urine Negative (Negative); Protein,Urine Trace (Negative); RBC,Urine <1 /hpf (0-5); Specific Gravity,Urine 1.022 (1.001-1.035); Squamous Epithelial Cell,Urine 1 /hpf (0-4); Urobilinogen,Urine <2.0 mg/dL (<2.0); WBC,Urine 6 /hpf (0-5)
[2024-10-01] MEDS: VANCOMYCIN 2,250 MG in SODIUM CHLORIDE 0.9% 500 ML 500 ML IVPB STA (21:03)
[2024-10-01] MEDS ORDERED: diphenhydrAMINE 25 MG CAP PO PRN (22:49)
[2024-10-01] MEDS ORDERED: FAMOTIDINE 20 MG TAB PO PRN (22:49)
[2024-10-01] MEDS ORDERED: FLUTICASONE NASAL 50MCG/SPRAY 16GM BTL EA NOSTRIL PRN (22:49)
[2024-10-02] MEDS: GABAPENTIN 300 MG CAP PO SCH (00:15)
[2024-10-02] MEDS: ACETAMINOPHEN TAB 325 MG TAB PO PRN (00:16)
[2024-10-02] MEDS: PIPERACILLIN-TAZOBACTAM 3.375 GM in SODIUM CHLORIDE 0.9% 100 ML IVPB SCH (01:12)
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
[2024-10-02] MEDS: LEVOTHYROXINE 75 MCG TAB PO SCH (05:48)
[2024-10-02] MEDS: PANTOPRAZOLE 40 MG TABLET PO SCH (05:48)
[2024-10-02] MEDS: SPIRONOLACTONE 25 MG TAB PO SCH (05:57)
[2024-10-02] MEDS: VENLAFAXINE HCL ER 150 MG CAP PO SCH (05:57)
[2024-10-02] MEDS: ATORVASTATIN 40 MG TAB PO SCH (05:57)
[2024-10-02] MEDS: BACLOFEN 10 MG TAB PO SCH (05:57)
[2024-10-02] MEDS: DOFETILIDE 125 MCG CAP PO SCH (05:57)
[2024-10-02] MEDS: APIXABAN 5 MG TAB PO SCH (05:57)
[2024-10-02] MEDS: PRAMIPEXOLE 0.25 MG TAB PO SCH (05:58)
[2024-10-02] MEDS: CALCIUM CARBONATE 500 MG CHEWABLE PO SCH (06:00)
[2024-10-02] MEDS ORDERED: BEET ROOT PO SCH (07:00)
--- NOTE | 2024-10-02 08:19 | P.PN ---
Progress Note - Text Please note Patient is on dofetilide Watch renal function Watch magnesium and potassium and avoid low levels Keep magnesium greater than 2.0 and keep potassium greater than 4.0 Avoid QT prolonging drugs and drugs that interact with dofetilide Discussed with pharmacist Message sent to cardiac team
[2024-10-02] MEDS: METOPROLOL TARTRATE 12.5 MG TAB PO SCH (08:43)
[2024-10-02] MEDS: FUROSEMIDE 10 MG/ML 4 ML VIAL IV SCH (08:45)
[2024-10-02] MEDS: VANCOMYCIN 2,250 MG in SODIUM CHLORIDE 0.9% 500 ML 500 ML IVPB SCH (08:45)
[2024-10-02] MEDS ORDERED: GABAPENTIN 300 MG CAP PO SCH (09:00)
[2024-10-02 09:22] LABS: Basophils # (A) 0.03 X 10*3/uL (0.00-0.10); Basophils % (A) 0.4 %; Eosinophils # (A) 0.16 X 10*3/uL (0.04-0.35); HCT 36.3 % (37.2-46.3); HGB 11.9 g/dL (12.0-15.0); Lymphocytes # (A) 0.97 X 10*3/uL (0.90-5.00); Lymphocytes % (A) 12.4 %; MCH 32.2 pg (27.0-32.0); MCHC 32.8 g/dL (32.0-37.0); MCV 98.4 FL (80.0-97.0); Mean Platelet Volume 11.2 FL (9.5-12.2); Monocytes # (A) 0.69 X 10*3/uL (0.20-1.00); Monocytes % (A) 8.8 %; NRBC Per 100 WBC 0 X 10*3/uL (0.00-0.01); Neutrophils # (A) 5.94 X 10*3/uL (1.80-7.70); Neutrophils % (A) 76.1 %; Platelet Count 197 X 10*3/uL (140-440); RBC 3.69 X 10*6/uL (4.10-5.20); RDW 15.1 % (11.5-14.5); WBC 7.81 X 10*3/uL (4.50-10.00)
[2024-10-02 09:42] LABS: BUN/Creat Ratio 26.38 Ratio (12.00-20.00); Blood Urea Nitrogen 21.1 mg/dL (9.0-27.0); Chloride 105 mmol/L (96-109); Glucose 111 mg/dL (70-110); Sodium 143 mmol/L (135-145)
[2024-10-02 09:43] LABS: ALT 22 U/L (8-44); AST 18 U/L (13-35); Albumin 3.9 g/dL (3.8-4.9); Albumin/Globulin Ratio 2.17 Ratio (1.60-3.17); Alkaline Phosphatase 107 U/L (41-126); Calcium 9.3 mg/dL (8.7-10.3); Carbon Dioxide 26.3 mmol/L (21.6-31.8); Globulin 1.8 g/dL (1.6-3.3); Total Bilirubin 0.3 mg/dL (0.3-1.2); Total Protein 5.7 g/dL (6.2-8.2)
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
--- NOTE | 2024-10-02 11:19 | P.PN ---
Subjective Progress Note Date: 10/02/24 Patient is a 64-year-old female with A-fib, TIA, hypertension, COPD, multiple sclerosis and Parkinson's who presents for leg swelling. She states she has ongoing leg swelling for the last 3 months which has worsened over the last 3 to 4 weeks. Over the last week she has noticed increased redness in bilateral lower extremities. She states increase swelling and other comorbidities has also made it more difficult to ambulate, where she takes a few steps and feels short of breath. She walks at baseline with a walker for support, however spends most of her day sitting. She also states she has history of shortness of breath when lying flat, and sleeps on a recliner. She does follow-up with cardiology Dr. Vargas, last seen in the fall. She also states she has dysuria at baseline due to her multiple sclerosis, goes to the bathroom frequently to avoid incontinence. Patient reports absence of fever, chills, weight loss, chest pain, palpitations, diaphoresis, cough, abdominal pain, nausea, vomiting, constipation, diarrhea, myalgia, dizziness, and headache. 10/02/2024 patient seen and examined at bedside. No acute events overnight. Labs today show WBC 7.81, hemoglobin 11.1, MCV 98.4, platelet count 1 97,000, sodium 143, potassium 4, chloride 105, bicarb 26.3, BUN 21.1, creatinine 0.8, glucose 111, calcium 9.3, total bilirubin 0.3, AST 18, ALT 22, alk phos 107, albumin 3.9 Review of systems: Pertinent positives and negatives as discussed in HPI, a complete review of systems was performed and all other systems are negative. Pertinent imaging and labs reviewed. Physical examination: Vital signs reviewed General: non toxic, no distress, appears at stated age, obese Derm: no unusual rashes/lesions, warm Head: atraumatic, normocephalic, symmetric Eyes: EOMI, anicteric sclera, pupils equal round reactive to light ENT: Nose and ears atraumatic Neck: No cervical lymphadenopathy, trachea midline, supple Mouth: no lip lesion, mucus membranes moist Cardiovascular: S1S2 reg, no murmur Lungs: No rhonchi, bibasilar fine rales, no accessory muscle use Abdominal: soft, nontender to palpation, no guarding Ext: muscle strength 5 out of 5 in all 4 extremities grossly, no gross muscle atrophy, no contractures, positive dorsalis pedis pulse bilateral, +3 bilateral lower ext pitting edema with bilateral extremity erythema up to the knees Neuro: CN II-XI grossly intact, no gross focal neuro deficits Psych: Alert and oriented x3, appropriate affect and mood Assessment and Plan: In summary, patient is a 64-year-old female with A-fib, TIA, hypertension, COPD, multiple sclerosis and Parkinson's who presents for leg swelling. Concern for heart failure exacerbation based on imaging and clinical presentation #. Bilateral lower extremity edema, most likely due to CHF exacerbation #. Debility -Previous echo with EF 55 to 60% in November 2019 -Chest x-ray independently interpreted as mild pulmonary vascular congestion -Repeat echo -Continue IV Lasix 40 mg every 12 hours -Cardiac monitoring -Initial weight 158.7 kg, daily weights -No more than 1.8 L of total volume intake daily -Low sodium diet, <2g daily -Monitor BMP and Magnesium -PT OT consulted -Cardiology consulted #. Chronic venous insufficiency of bilateral lower limbs #. Venous stasis dermatitis -Initial wbc 7.7 -Blood culture pending -Discontinue vancomycin dose per pharm Lasix as above #. Pre-renal azotemia, likely due to CHF -BUN 26, creatinine 0.67 -Continue fluid restriction -Monitor CMP Chronic Medical Conditions #. Essential hypertension #. A-fib #. Coronary artery disease #. GERD #. Anxiety/Depression #. Multiple sclerosis Resume home medications DVT ppx: Eliquis 5 mg twice daily Code status: Full code F: limit fluid intake to 1.8 L/day E: Replete as needed N: Heart healthy diet, limit sodium less than 2 g/day A: Ambulatory uses walker at baseline Irene Burnette MD PGY-1/[employer] Dictation was produced using [employer] dictation software. please excuse any grammatical, word or spelling errors. I have seen and evaluated the patient today. Discussed with the resident and agree with the residents finding and plan as documented in the resident's note. Changes highlighted in blue font. Objective - Vital Signs Vital signs: Vital Signs Temp 98.0 F 10/02/24 05:50 Pulse 71 10/02/24 05:50 Resp 18 10/02/24 05:50 BP 104/65 10/02/24 05:50 Pulse Ox 92 L 10/02/24 05:50 FiO2 Intake & Output 10/01/24 10/02/24 10/02/24 18:59 06:59 18:59 Intake Total 540 Output Total 900 Balance -360 Weight 158.757 kg 150 kg Intake: Oral 540 Output: Urine 900 Stool 0 Other: Voiding Method External Catheter - Labs CBC & Chem 7: 10/02/24 05:36 10/02/24 05:36 Labs: Abnormal Lab Results - Last 24 Hours (Table) 10/01/24 10/01/24 10/01/24 Range/Units 18:59 18:59 20:10 Lymphocytes # 0.8 L (1.0-4.8) k/uL BUN 26 H (7-17) mg/dL Glucose 115 H (74-99) mg/dL Urine Appearance Cloudy H (Clear) Urine Protein Trace H (Negative) Urine Blood Trace H (Negative) Urine WBC 6 H (0-5) /hpf Amorphous Sediment Rare H (None) /hpf Urine Bacteria Occasional H (None) /hpf Urine Mucus Rare H (None) /hpf
[2024-10-02] MEDS: LOSARTAN 50 MG TAB PO SCH (17:37)
--- NOTE | 2024-10-02 18:57 | CA ---
Transthoracic Echo Report Name: Arielle May Age: 64 Gender: F : 1960 Exam Date: 10/02/2024 15:57 Exam Location: [facility] Ht (in): 70 Wt (lb): 350 Ordering Physician: Ney Rosa MD Attending/Referring Phys: Computer Training Specialist Freida Dunne RDCS Procedure CPT: Indications: peripheral edema, orthopnea Cardiac Hx: Technical Quality: Poor Contrast 1: Definity Total Dose (mL): 2 Contrast 2: Total Dose (mL): MEASUREMENTS (Male / Female) Normal Values 2D ECHO LV Diastolic Diameter PLAX 5.2 cm 4.2 - 5.9 / 3.9 - 5.3 cm LV Systolic Diameter PLAX 3.3 cm IVS Diastolic Thickness 1.3 cm 0.6 - 1.0 / 0.6 - 0.9 cm LVPW Diastolic Thickness 1.6 cm 0.6 - 1.0 / 0.6 - 0.9 cm LV Relative Wall Thickness 0.6 RV Internal Dim ED PLAX 2.7 cm LA Systolic Diameter LX 4.4 cm 3.0 - 4.0 / 2.7 - 3.8 cm LA Volume 100.5 cm??? 18 - 58 / 22 - 52 cm??? LA Volume Index 34.8 cm???/m??? 16 - 28 cm???/m??? M-MODE Aortic Root Diameter MM 3.4 cm LA Systolic Diameter MM 4.5 cm LA Ao Ratio MM 1.3 AV Cusp Separation MM 2.2 cm DOPPLER MV Area PHT 2.7 cm??? Mitral E Point Velocity 66.8 cm/s Mitral A Point Velocity 66.1 cm/s Mitral E to A Ratio 1.0 MV Deceleration Time 280.5 ms FINDINGS Left Ventricle Left ventricular ejection fraction is estimated at 50-55 %. Moderately increased left ventricular wall thickness. Left ventricular systolic function borderline normal Right Ventricle Severe right ventricular dilatation. Unable to estimate the right ventricular systolic pressure. Right Atrium Mild right atrial dilatation. Left Atrium Moderately increased left atrial diameter. Moderately increased left atrial volume. Moderately increased left atrial area. Mitral Valve Structurally normal mitral valve. Mild mitral regurgitation. No mitral stenosis. Aortic Valve Trileaflet aortic valve. No aortic valve stenosis or regurgitation.aortic valve not well visualized. Tricuspid Valve Structurally normal tricuspid valve. No tricuspid stenosis. No tricuspid regurgitation. Pulmonic Valve Pulmonic valve not well visualized. . No pulmonic stenosis. No pulmonic regurgitation. Pericardium No pericardial or pleural effusion. Echo free space anterior to the right ventricle likely represents a fat pad. Aorta Normal size aortic root and proximal ascending aorta. CONCLUSIONS Technically difficult study. Definity ECHO contrast used for improved visualization of the endocardial borders (inadequate visualization of two or more contiguous segments). Left ventricular systolic function borderline normal Limited Doppler study with mild mitral regurgitation Previewed by: Dr. Dayna Smith MD (Electronically Signed) Final Date: 02 October 2024 18:56
[2024-10-02] MEDS: ACETAMINOPHEN TAB 500 MG TAB PO PRN (20:38)
[2024-10-02] MEDS: LORazepam 1 MG TAB PO PRN (20:39)
[2024-10-03 05:39] LABS: Basophils # (A) 0.1 k/uL (0-0.2); Basophils % (A) 1 %; Eosinophils # (A) 0.1 k/uL (0-0.7); Eosinophils % (A) 2 %; HCT 40.4 % (34.0-46.0); HGB 12.7 gm/dL (11.4-16.0); Lymphocytes # (A) 0.7 k/uL (1.0-4.8); Lymphocytes % (A) 9 %; MCH 31.3 pg (25.0-35.0); MCHC 31.5 g/dL (31.0-37.0); MCV 99.5 fL (80.0-100.0); Macrocytosis Slight; Mean Platelet Volume 8.4; Monocytes # (A) 0.6 k/uL (0-1.0); Monocytes % (A) 7 %; Neutrophils # (A) 6.5 k/uL (1.3-7.7); Neutrophils % (A) 80 %; Platelet Count 210 k/uL (150-450); RBC 4.06 m/uL (3.80-5.40); WBC 8.2 k/uL (3.8-10.6)
[2024-10-03 09:15] LABS: BUN/Creat Ratio 18.78 Ratio (12.00-20.00); Blood Urea Nitrogen 16.9 mg/dL (9.0-27.0); Calcium 9.4 mg/dL (8.7-10.3); Chloride 102 mmol/L (96-109); Glucose 108 mg/dL (70-110); Sodium 141 mmol/L (135-145)
--- NOTE | 2024-10-03 14:54 | P.PN ---
Subjective Progress Note Date: 10/03/24 Consult reason: congestive heart failure History of present illness: This is a 63-year-old female patient of Dr. Smith with past medical history of nonischemic cardiomyopathy with EF 35%, persistent atrial fibrillation, hypertension, hyperlipidemia. We have been asked to evaluate the patient for CHF. Patient states that she came into the hospital because her legs got swollen. She denies any shortness of breath or chest pain. She states she has had increasing swelling for the past month and then for the past 1 week, her legs have been red. She states she does have some dizziness when she stands. She denies any palpitations. She does not feel that she has been in atrial fibrillation recently. Blood pressure 104/65, heart rate 71, pulse ox 92% on room air. Patient has been started on IV Lasix 40 mg every 12 hours as well as IV antibiotics. -EKG: Sinus rhythm, left axis deviation. -Chest x-ray: No acute process -Laboratory studies: Hemoglobin 11.9. Electrolytes and renal function are within normal limits. Troponin negative x 1, proBNP 39. Cepheid viral panel not detected. -Home cardiac medications: Eliquis 5 mg twice daily, atorvastatin 40 mg daily, Tikosyn 125 mcg twice daily, Lasix 20 mg daily, losartan 50 mg daily, metoprolol tartrate 12.5 mg twice daily, spironolactone 50 mg daily, also on levothyroxine. -Cardiac catheterization performed 2015 revealed EF of 20%, normal coronaries -Echocardiogram performed in the office 05/16/2022: Normal EF, moderate LVH, mild TR, mild MR. 3/6 Patient seen and examined. EKG reviewed this morning with no prolonged QT wave. Patient states that her legs are not bothering her today. She thinks the lower extremity edema is improving a little bit. She denies chest pain, no shortness of breath. She states she did not sleep well last night. Blood pressure 107/73, heart rate 61, pulse ox 94% on room air. Repeat blood work reveals hemoglobin of 12.7, potassium 4.0, magnesium 2.0. Physical examination: Gen: This is a 64-year-old female in no acute distress. VS: reviewed HEENT: Head is atraumatic, normocephalic. Pupils equal, round. Sclerae is anicteric. NECK: Supple. No JVD. LUNGS: Clear to auscultation. No wheezes or rhonchi. No intercostal retractions. HEART: Regular rate and rhythm. 1/6 systolic ejection murmur. ABDOMEN: Soft No tenderness. EXTREMITIES: Bilateral pedal edema with erythema. NEUROLOGICAL: Patient is awake, alert and oriented x3. Assessment: Lower extremity edema Lower extremity cellulitis No evidence of heart failure on chest x-ray, physical exam, proBNP. Localized edema with infectious process. Nonischemic cardiomyopathy with EF of 35% Persistent atrial fibrillation currently in a sinus rhythm and on Tikosyn Hypertension Hyperlipidemia Plan: Continue patient's home cardiac medications Continue IV Lasix 40 mg every 12 hours for lower extremity edema Monitor LULA, daily weights, electrolytes and renal function Repeat EKG in the morning to assess for QT prolongation Further recommendations to follow based upon clinical course Nurse practitioner note has been reviewed, I agree with documented findings and plan of care. Patient was seen and examined. Objective - Vital Signs Vital signs: Vital Signs Temp 98.7 F 10/03/24 07:21 Pulse 61 10/03/24 07:21 Resp 19 10/03/24 07:21 BP 107/73 10/03/24 07:21 Pulse Ox 94 L 10/03/24 07:21 FiO2 Intake & Output 10/02/24 10/03/24 10/03/24 18:59 06:59 18:59 Intake Total 600 240 Output Total 2300 0 Balance -1700 -1810 Weight 147.5 kg Intake: Oral 600 240 Output: Urine 2300 0 Other: Voiding Method External Catheter External Catheter - Labs CBC & Chem 7: 10/03/24 04:24 10/03/24 04:24 Labs: Abnormal Lab Results - Last 24 Hours (Table) 10/02/24 10/02/24 10/03/24 Range/Units 05:36 05:36 04:24 RBC 3.69 L (4.10-5.20) X 10*6/uL Hgb 11.9 L (12.0-15.0) g/dL Hct 36.3 L (37.2-46.3) % MCV 98.4 H (80.0-97.0) FL MCH 32.2 H (27.0-32.0) pg RDW 15.1 H (11.5-14.5) % Lymphocytes # 0.7 L (1.0-4.8) k/uL BUN/Creatinine Ratio 26.38 H (12.00-20.00) Ratio Glucose 111 H (70-110) mg/dL Total Protein 5.7 L (6.2-8.2) g/dL Microbiology - Last 24 Hours (Table) 10/01/24 18:59 Blood Culture - Preliminary Blood 10/01/24 19:19 Gram Stain - Preliminary Leg - Right
--- NOTE | 2024-10-03 15:32 | P.PN ---
Subjective Progress Note Date: 10/03/24 Patient is a 64-year-old female with A-fib (on Eliquis), TIA, hypertension, COPD, multiple sclerosis and Parkinson's who presents for leg swelling. She states she has ongoing leg swelling for the last 3 months which has worsened over the last 3 to 4 weeks. Over the last week she has noticed increased red ness in bilateral lower extremities. She states increase swelling and other comorbidities has also made it more difficult to ambulate, where she takes a few steps and feels short of breath. She walks at baseline with a walker for support, however spends most of her day sitting. She also states she has history of shortness of breath when lying flat, and sleeps on a recliner. She does follow-up with cardiology Dr. Vargas, last seen in the fall. She also states she has dysuria at baseline due to her multiple sclerosis, goes to the bathroom frequently to avoid incontinence. Patient reports absence of fever, chills, weight loss, chest pain, palpitations, diaphoresis, cough, abdominal pain, nausea, vomiting, constipation, diarrhea, myalgia, dizziness, and headache. 10/02/2024 patient seen and examined at bedside. No acute events overnight. Labs today show WBC 7.81, hemoglobin 11.1, MCV 98.4, platelet count 1 97,000, sodium 143, potassium 4, chloride 105, bicarb 26.3, BUN 21.1, creatinine 0.8, glucose 111, calcium 9.3, total bilirubin 0.3, AST 18, ALT 22, alk phos 107, albumin 3.9 10/03/2024 patient seen and examined at bedside. No acute events overnight. No new complaints. Labs today showed WBC 8.2, hemoglobin 12.7, platelet count 210,000, sodium 141, potassium 4, bicarb 27, BUN 16.9, creatinine 0.9, calcium 9.4, magnesium 2. Echocardiogram showed left ventricular ejection fraction estimated at 50 to 55% Review of systems: Pertinent positives and negatives as discussed in HPI, a complete review of systems was performed and all other systems are negative. Pertinent imaging and labs reviewed. Physical examination: Vital signs reviewed General: non toxic, no distress, appears at stated age, obese Derm: no unusual rashes/lesions, warm Head: atraumatic, normocephalic, symmetric Eyes: EOMI, anicteric sclera, pupils equal round reactive to light ENT: Nose and ears atraumatic Neck: No cervical lymphadenopathy, trachea midline, supple Mouth: no lip lesion, mucus membranes moist Cardiovascular: S1S2 reg, no murmur Lungs: No rhonchi, bibasilar fine rales, no accessory muscle use Abdominal: soft, nontender to palpation, no guarding Ext: muscle strength 5 out of 5 in all 4 extremities grossly, no gross muscle atrophy, no contractures, positive dorsalis pedis pulse bilateral, +3 bilateral lower ext pitting edema with bilateral extremity erythema up to the knees Neuro: CN II-XI grossly intact, no gross focal neuro deficits Psych: Alert and oriented x3, appropriate affect and mood Assessment and Plan: In summary, patient is a 64-year-old female with A-fib, TIA, hypertension, COPD, multiple sclerosis and Parkinson's who presents for leg swelling. Concern for heart failure exacerbation based on imaging and clinical presentation #. Bilateral lower extremity edema #. HFpEF exacerbation, improving #. Debility -Previous echo with EF 55 to 60% in November 2019 -Chest x-ray independently interpreted as mild pulmonary vascular congestion -Repeat Echocardiogram showed left ventricular ejection fraction estimated at 50 to 55% -Continue IV Lasix 40 mg every 12 hours -Cardiac monitoring -Initial weight 158.7 kg, daily weights -No more than 1.8 L of total volume intake daily -Low sodium diet, <2g daily -Monitor BMP and Magnesium -PT OT consulted. Recommended SANDY -Cardiology consulted #. Chronic venous insufficiency of bilateral lower limbs #. Venous stasis dermatitis -Initial wbc 7.7 -Blood culture negative -Anaerobic wound culture done by ED. Grew skin annabelle. No intervention needed at this time -Discontinue vancomycin dose per pharm Lasix as above #. Pre-renal azotemia, resolved -BUN 16 creatinine 0.9 -Continue fluid restriction -Monitor CMP Chronic Medical Conditions #. Essential hypertension #. A-fib #. Coronary artery disease #. GERD #. Anxiety/Depression #. Multiple sclerosis Resume home medications DVT ppx: Eliquis 5 mg twice daily Code status: Full code F: limit fluid intake to 1.8 L/day E: Replete as needed N: Heart healthy diet, limit sodium less than 2 g/day A: Ambulatory uses walker at baseline Irene Burnette MD PGY-1/Product Safety Consultant Dictation was produced using [employer] dictation software. please excuse any grammatical, word or spelling errors. Pertinent positives and negatives as discussed in HPI, a complete review of systems was performed and all other systems are negative. Objective - Vital Signs Vital signs: Vital Signs Temp 98.7 F 10/03/24 07:21 Pulse 61 10/03/24 07:21 Resp 19 10/03/24 07:21 BP 107/73 10/03/24 07:21 Pulse Ox 94 L 10/03/24 07:21 FiO2 Intake & Output 10/02/24 10/03/24 10/03/24 18:59 06:59 18:59 Intake Total 600 240 Output Total 2299 2049 Balance -1700 -1810 Weight 147.5 kg Intake: Oral 600 240 Output: Urine 2299 2049 Other: Voiding Method External Catheter External Catheter - Labs CBC & Chem 7: 10/03/24 04:24 10/03/24 04:24 Labs: Abnormal Lab Results - Last 24 Hours (Table) 10/02/24 10/02/24 10/03/24 Range/Units 05:36 05:36 04:24 RBC 3.69 L (4.10-5.20) X 10*6/uL Hgb 11.9 L (12.0-15.0) g/dL Hct 36.3 L (37.2-46.3) % MCV 98.4 H (80.0-97.0) FL MCH 32.2 H (27.0-32.0) pg RDW 15.1 H (11.5-14.5) % Lymphocytes # 0.7 L (1.0-4.8) k/uL BUN/Creatinine Ratio 26.38 H (12.00-20.00) Ratio Glucose 111 H (70-110) mg/dL Total Protein 5.7 L (6.2-8.2) g/dL Microbiology - Last 24 Hours (Table) 10/01/24 18:59 Blood Culture - Preliminary Blood 10/01/24 19:19 Gram Stain - Preliminary Leg - Right
--- NOTE | 2024-10-03 17:13 | CDI ---
Documentation Clarification Form Date: 10/03/2024 04:52:26 PM From: Mihaela Sandoval RN CCDS Phone: [phone] Admit Date: 10/01/2024 08:02:00 PM Patient Name: Arielle May Visit Number: [id number] Discharge Date: ATTENTION: The Clinical Documentation Specialists (CDI) and [facility] Coding Staff appreciate your assistance in clarifying documentation. Please respond to the clarification below the line at the bottom and electronically sign. The CDI & [facility] Coding staff will review the response and follow-up if needed. Please note: Queries are made part of the Legal Health Record. If you have any questions, please contact the author of this message via ITS. Doctor: Yovany Leal Conflicting documentation has been found in the medical record. As attending physician, please provide clarification. No evidence of heart failure on chest x-ray, physical exam, proBNP., 10/01, Cardiology consult CHF exacerbation, 10/01, HP History/Risk Factors: 64 year old female presents to the ED with ongoing leg swelling for the last three months which has worsened over the last three to four weeks. The patient has also noticed increased redness in bilateral lower extremities. The paitent is experiencing shortness of breath and difficult to ambulate. Medical history: Parkinson, Atrial fib, HTN, CAD, GERD, Anxiety and depression 3/4 HP. Clinical Indicators: CXR, 10/01: No acute cardiopulmonary disease/process. ECHO, 10/02: EF 50-55% Definity ECHO contrast used for improved visualization of the endocardial borders (inadequate visualization of two or more contiguous segments). Left ventricular systolic function borderline normal. Limited Doppler study with mild mitral regurgitation LABS, 10/01: Pro-BNP 39 Treatment: 10/01 Lasix 40mg IV x 1; 10/02 Lasix 40mg IV Q12H; 10/02 Lopressor 12.5mg PO BID; 10/02 Aldactone 50mg PO Daily; Please clarify which diagnosis is most appropriate: [ x] Acute Diastolic Heart Failure [ ] Heart Failure ruled out [ ] Other (please specify) [ ] Unable to determine (Template Last Revised: September 2020) MTDD
[2024-10-03] MEDS ORDERED: LOPERAMIDE 2 MG CAP PO PRN (20:44)
[2024-10-04 02:17] VITALS: RESP 16
[2024-10-04 08:28] LABS: BUN/Creat Ratio 25.25 Ratio (12.00-20.00); Blood Urea Nitrogen 20.2 mg/dL (9.0-27.0); Glucose 133 mg/dL (70-110)
[2024-10-04 08:29] LABS: Calcium 9.5 mg/dL (8.7-10.3); Carbon Dioxide 27.8 mmol/L (21.6-31.8); Chloride 102 mmol/L (96-109); Potassium 3.7 mmol/L (3.5-5.5); Sodium 142 mmol/L (135-145)
[2024-10-04 12:14] VITALS: BP 118/78; PULSE 69; TEMP 98.2
--- NOTE | 2024-10-04 12:26 | P.PN ---
Subjective Progress Note Date: 10/04/24 Consult reason: congestive heart failure History of present illness: This is a 63-year-old female patient of Dr. Smith with past medical history of nonischemic cardiomyopathy with EF 35%, persistent atrial fibrillation, hypertension, hyperlipidemia. We have been asked to evaluate the patient for CHF. Patient states that she came into the hospital because her legs got swollen. She denies any shortness of breath or chest pain. She states she has had increasing swelling for the past month and then for the past 1 week, her legs have been red. She states she does have some dizziness when she stands. She denies any palpitations. She does not feel that she has been in atrial fibrillation recently. Blood pressure 104/65, heart rate 71, pulse ox 92% on room air. Patient has been started on IV Lasix 40 mg every 12 hours as well as IV antibiotics. -EKG: Sinus rhythm, left axis deviation. -Chest x-ray: No acute process -Laboratory studies: Hemoglobin 11.9. Electrolytes and renal function are within normal limits. Troponin negative x 1, proBNP 39. Cepheid viral panel not detected. -Home cardiac medications: Eliquis 5 mg twice daily, atorvastatin 40 mg daily, Tikosyn 125 mcg twice daily, Lasix 20 mg daily, losartan 50 mg daily, metoprolol tartrate 12.5 mg twice daily, spironolactone 50 mg daily, also on levothyroxine. -Cardiac catheterization performed 2015 revealed EF of 20%, normal coronaries -Echocardiogram performed in the office 05/16/2022: Normal EF, moderate LVH, mild TR, mild MR. 10/03 Patient seen and examined. EKG reviewed this morning with no prolonged QT wave. Patient states that her legs are not bothering her today. She thinks the lower extremity edema is improving a little bit. She denies chest pain, no shortness of breath. She states she did not sleep well last night. Blood pressure 107/73, heart rate 61, pulse ox 94% on room air. Repeat blood work reveals hemoglobin of 12.7, potassium 4.0, magnesium 2.0. 10/04 Patient seen and examined. Patient states that she is feeling much better today. Reviewed EKG and no concerning QT prolongation noted. Blood pressure 118/78, heart rate 69, pulse ox 92% on room air. Repeat laboratory studies reveal potassium 3.7 and magnesium 2.0. Physical examination: Gen: This is a 64-year-old female in no acute distress. VS: reviewed HEENT: Head is atraumatic, normocephalic. Pupils equal, round. Sclerae is anicteric. NECK: Supple. No JVD. LUNGS: Clear to auscultation. No wheezes or rhonchi. No intercostal retractions. HEART: Regular rate and rhythm. 1/6 systolic ejection murmur. ABDOMEN: Soft No tenderness. EXTREMITIES: Bilateral pedal edema with erythema. NEUROLOGICAL: Patient is awake, alert and oriented x3. Assessment: Lower extremity edema Lower extremity cellulitis No evidence of heart failure on chest x-ray, physical exam, proBNP. Localized edema with infectious process. Nonischemic cardiomyopathy with EF of 35% Persistent atrial fibrillation currently in a sinus rhythm and on Tikosyn Hypertension Hyperlipidemia Plan: Continue patient's home cardiac medications Continue IV Lasix 40 mg every 12 hours for lower extremity edema. Transition to oral when patient is ready for discharge Monitor LULA, daily weights, electrolytes and renal function Dr. Vargas discussed with Dr. Leal concern regarding antibiotics at discharge. Do not recommend use of azithromycin fluoroquinolones or Bactrim due to possible QT prolongation with Tikosyn if another option is available. Antibiotics that work well with this medication is penicillin and Keflex. If patient requires the antibiotics of concern, patient would need Tikosyn discontinued and will need to be hospitalized to resume Tikosyn. Cardiology will sign off this case and follow on an as-needed basis. Please reconsult for any new concerns. Patient may follow-up in the office in one to [address] Smith. Nurse practitioner note has been reviewed, I agree with documented findings and plan of care. Patient was seen and examined. Objective - Vital Signs Vital signs: Vital Signs Temp 97.6 F 10/04/24 07:52 Pulse 60 10/04/24 07:52 Resp 16 10/04/24 07:52 BP 119/69 10/04/24 07:52 Pulse Ox 94 L 10/04/24 07:52 FiO2 21 10/03/24 11:57 Intake & Output 10/03/24 10/04/24 10/04/24 18:59 06:59 18:59 Intake Total 540 540 Output Total 800 1475 Balance -260 -935 Weight 144 kg Intake: Oral 540 540 Output: Urine 800 1475 Other: Voiding Method External Catheter External Catheter - Labs CBC & Chem 7: 10/03/24 04:24 10/04/24 04:22 Labs: Abnormal Lab Results - Last 24 Hours (Table) 10/04/24 Range/Units 04:22 Anion Gap 12.20 H (4.00-12.00) mmol/L BUN/Creatinine Ratio 25.25 H (12.00-20.00) Ratio Glucose 133 H (70-110) mg/dL Microbiology - Last 24 Hours (Table) 10/01/24 18:59 Blood Culture - Preliminary Blood 10/01/24 19:19 Gram Stain - Preliminary Leg - Right Wound Culture - Preliminary Moraxella(branhamella) catarra
--- NOTE | 2024-10-04 15:22 | P.DS ---
Providers Date of admission: 10/01/24 20:02 Attending physician: Sulaiman Simon MD Consults: 10/01/24 20:01 Consult Physician Routine Consulting Provider: [facility] Consult Reason/Comments: chf Do you want consulting provider notified?: Yes Primary care physician: Karlo [facility]ion [facility] Course: Hospital Course: Patient is a 64-year-old female with A-fib (on Eliquis), TIA, hypertension, COPD, multiple sclerosis and Parkinson's who presents for leg swelling. Patient was admitted for evaluation of bilateral lower extremity edema concerning for heart failure exacerbation and chronic venous insufficiency. Ordered echocardiogram, IV Lasix, LULA's, daily weights, low-sodium diet, cardiac monitoring, and fluid restriction. Patient incidentally placed on IV antibiotics for concern of possible cellulitis to the leg erythema. Cardiology consulted. Repeat echocardiogram showed left ventricular ejection fraction estimated 50 to 55%. Blood cultures ordered were negative and IV antibiotics were discontinued. Patient symptoms improved throughout hospital stay. No new complications occurred. Patient is cleared for discharge today with home health care and was prescribed Lasix 40 mg oral daily. She is advised to follow-up with elevator serviceman and PCP on outpatient basis Final Diagnosis: #. HFpEF exacerbation, resolved #. Nonischemic cardiomyopathy with recovered ejection fraction 50 to 55% #. Debility #. Chronic venous insufficiency of bilateral lower limbs #. Venous stasis dermatitis #. Pre-renal azotemia, resolved #. Essential hypertension #. A-fib #. Coronary artery disease #. GERD #. Anxiety/Depression #. Multiple sclerosis Physical examination: Vital signs reviewed General: non toxic, no distress Derm: no unusual rashes/lesions, warm Head: atraumatic, normocephalic, symmetric Eyes: EOMI, anicteric sclera, pupils equal round reactive to light ENT: Nose and ears atraumatic Neck: No cervical lymphadenopathy, trachea midline, supple Mouth: no lip lesion, mucus membranes moist Cardiovascular: S1S2 reg, no murmur Lungs: CTA bilateral, no rhonchi, no rales, no accessory muscle use Abdominal: soft, nondistended, nontender to palpation, no guarding Ext: muscle strength 5 out of 5 in all 4 extremities grossly, no gross muscle atrophy, no contractures, positive dorsalis pedis pulse bilateral, +3 bilateral lower ext pitting edema with bilateral extremity erythema up to the knees Neuro: CN II-XI grossly intact, no gross focal neuro deficits Psych: Alert, oriented, appropriate affect and mood I saw and evaluated the patient during the epps and critical portions of this encounter, and discussed the case in detail with the resident author of this note, I agree with the Assessment and Plan, and my changes, if any, are highlighted in blue. A total of 38 minutes were spent discharging this patient Patient Condition at Discharge: Stable Plan - Discharge Summary New Discharge Prescriptions: New Furosemide [Lasix] 40 mg PO DAILY #60 tablet Continue Lansoprazole [Prevacid] 30 mg PO BID@0400,1600 Apixaban [Eliquis] 5 mg PO BID@0400,1600 Gabapentin 600 mg PO QID@04,10,16,22 Atorvastatin [Lipitor] 40 mg PO DAILY@1000 Baclofen [Lioresal] 20 mg PO TID@0400,1000,1600 Levothyroxine Sodium [Synthroid] 150 mcg PO DAILY@0400 Dofetilide [Tikosyn] 125 mcg PO BID@0400,1600 Metoprolol Tartrate [Lopressor] 12.5 mg PO BID@0400,1600 Multivit-Min/FA/Lycopen/Lutein [Centrum Silver Tablet] 1 tab PO DAILY@1300 Calcium Carbonate [Calcium] 600 mg PO BID@0700,1900 Pramipexole [Mirapex] 0.25 mg PO TID@0400,1000,1600 LORazepam [Ativan] 1 mg PO DAILY PRN PRN Reason: Anxiety Acetaminophen/Diphenhydramine [Unisom Pm Pain 325-50 mg Cplt] 1 tab PO HS PRN PRN Reason: SLEEP/PAIN Spironolactone [Aldactone] 50 mg PO DAILY@1000 Montelukast [Singulair] 10 mg PO DAILY@0400 Turmeric With Biperine Black Pepper 1 tab PO TID@0100,0700,1300 Famotidine [Pepcid AC] 10 mg PO DAILY PRN PRN Reason: ACID REFLUX Magnesium Glycinate 380mg 380 mg PO BID@0100,1300 Loperamide [Imodium] 2 - 4 mg PO QID PRN PRN Reason: Diarrhea Glucosam/James-Msm1/C/Bob/Bosw [Glucosamine-Chondroitin Tablet] 1 tab PO BID@0700,1900 Diclofenac Sodium Gel [Voltaren 1% Gel] 1 applic TOPICAL QID PRN PRN Reason: Pain Beet Root (Unknown Strength) 1 dose PO BID@0700,1900 Venlafaxine HCl [Effexor XR] 150 mg PO DAILY@1000 Fluticasone Nasal [place] [Flonase Nasal [place]] 1 spray EA NOSTRIL DAILY PRN PRN Reason: Allergy Symptoms Meloxicam [Mobic] 15 mg PO DAILY@1600 Losartan [Cozaar] 50 mg PO DAILY@1600 Discontinued Furosemide [Lasix] 20 mg PO DAILY@0400 Discharge Medication List Lansoprazole [Prevacid] 30 mg PO BID@0400,1600 01/20/14 [History] Apixaban [Eliquis] 5 mg PO BID@0400,1600 03/28/16 [History] Atorvastatin [Lipitor] 40 mg PO DAILY@1000 03/28/16 [History] Gabapentin 600 mg PO QID@04,,,03/28/16 [History] Baclofen [Lioresal] 20 mg PO TID@0400,1000,1600 10/03/17 [History] Levothyroxine Sodium [Synthroid] 150 mcg PO DAILY@0400 04/25/19 [History] Dofetilide [Tikosyn] 125 mcg PO BID@0400,1600 05/22/19 [History] Metoprolol Tartrate [Lopressor] 12.5 mg PO BID@0400,1600 10/11/21 [History] Multivit-Min/FA/Lycopen/Lutein [Centrum Silver Tablet] 1 tab PO DAILY@1300 10/11/21 [History] Acetaminophen/Diphenhydramine [Unisom Pm Pain 325-50 mg Cplt] 1 tab PO HS PRN 10/01/24 [History] Beet Root (Unknown Strength) 1 dose PO BID@0700,1900 10/01/24 [History] Calcium Carbonate [Calcium] 600 mg PO BID@0700,1900 10/01/24 [History] Diclofenac Sodium Gel [Voltaren 1% Gel] 1 applic TOPICAL QID PRN 10/01/24 [Hi story] Famotidine [Pepcid AC] 10 mg PO DAILY PRN 10/01/24 [History] Fluticasone Nasal [place] [Flonase Nasal [place]] 1 spray EA NOSTRIL DAILY PRN 10/01/24 [History] Glucosam/James-Msm1/C/Bob/Bosw [Glucosamine-Chondroitin Tablet] 1 tab PO BID@0700,1900 10/01/24 [History] LORazepam [Ativan] 1 mg PO DAILY PRN 10/01/24 [History] Loperamide [Imodium] 2 - 4 mg PO QID PRN 10/01/24 [History] Losartan [Cozaar] 50 mg PO DAILY@1600 10/01/24 [History] Magnesium Glycinate 380mg 380 mg PO BID@0100,1300 10/01/24 [History] Meloxicam [Mobic] 15 mg PO DAILY@1600 10/01/24 [History] Montelukast [Singulair] 10 mg PO DAILY@0400 10/01/24 [History] Pramipexole [Mirapex] 0.25 mg PO TID@0400,1000,1600 10/01/24 [History] Spironolactone [Aldactone] 50 mg PO DAILY@1000 10/01/24 [History] Turmeric With Biperine Black Pepper 1 tab PO TID@0100,0700,1300 10/01/24 [History] Venlafaxine HCl [Effexor XR] 150 mg PO DAILY@1000 10/01/24 [History] Furosemide [Lasix] 40 mg PO DAILY #60 tablet 10/04/24 [Rx] Follow up Appointment(s)/Referral(s): Dayna Smith MD [STAFF PHYSICIAN] - 10/15/24 10:15 am (appointment with Barbie [facility]) Karlo Carrion DO [Primary Care Provider] - 10/17/24 10:20 am (appointment with Gabby ROSE) Patient Instructions/Handouts: Heart Failure (DC), Cellulitis (ED) Activity/Diet/Wound Care/Special Instructions: Follow up with PCP and cardiology Discharge Disposition: HOME WITH HOME HEALTH SERVICES
== END 2024-10-04 13:29 | disposition home health service (06) | DRG 291 ==
LOC: EC 18:05 → 5NMEDONC 20:02
PROVIDERS: ADMIT Internal Medicine; ATTEND Internal Medicine
DX: I11.0 Hypertensive heart disease with heart failure (principal); I50.31 Acute diastolic (congestive) heart failure; G45.9 Transient cerebral ischemic attack, unspecified; G20.A1 Parkinson's disease without dyskinesia, without mention of fluctuations; I48.19 Other persistent atrial fibrillation; Z79.01 Long term (current) use of anticoagulants; I42.8 Other cardiomyopathies; G35 Multiple sclerosis; J43.9 Emphysema, unspecified; F32.A Depression, unspecified; E03.9 Hypothyroidism, unspecified; I08.1 Rheumatic disorders of both mitral and tricuspid valves; L03.116 Cellulitis of left lower limb; L03.115 Cellulitis of right lower limb; Z11.52 Encounter for screening for COVID-19; E78.5 Hyperlipidemia, unspecified; I87.2 Venous insufficiency (chronic) (peripheral); R09.89 Other specified symptoms and signs involving the circulatory and respiratory systems; R53.81 Other malaise; M79.89 Other specified soft tissue disorders; F41.9 Anxiety disorder, unspecified; K21.9 Gastro-esophageal reflux disease without esophagitis; Z79.890 Hormone replacement therapy; F43.10 Post-traumatic stress disorder, unspecified; I25.10 Atherosclerotic heart disease of native coronary artery without angina pectoris; I25.2 Old myocardial infarction; Z79.1 Long term (current) use of non-steroidal anti-inflammatories (NSAID); Z79.899 Other long term (current) drug therapy; Z82.49 Family history of ischemic heart disease and other diseases of the circulatory system; Z86.73 Personal history of transient ischemic attack (TIA), and cerebral infarction without residual deficits; K58.9 Irritable bowel syndrome, unspecified; R42 Dizziness and giddiness; K57.90 Diverticulosis of intestine, part unspecified, without perforation or abscess without bleeding; Z87.442 Personal history of urinary calculi; Z87.891 Personal history of nicotine dependence; Z90.710 Acquired absence of both cervix and uterus
CPT/HCPCS: 36415; 71046; 80048; 80053; 81001; 83605; 83735; 83880; 84484; 85025; 85610; 85730; 87040; 87070; 87075; 87205; 87636; 93005; 93306; 94760; 96365; 96374; 96375; 99285